=== PATIENT | male | born 1945 | race Caucasian/White ===

== ENCOUNTER 2019-10-20 23:35 | Emergency (ER) | payer MEDICARE, SELFPAY ==
[2019-10-20 23:39] VITALS: BP 214/113; PULSE 83; RESP 18; TEMP 36.1; O2SAT 94; BMI 33.0
--- NOTE | 2019-10-21 00:06 | ECG_ITS ---
Measurements Intervals [place] Rate: 78 P: AL: 0 QRS: -69 QRSD: 101 T: 59 QT: 406 QTc: 465 SSINUS RHYTHM PATTERN CONSISTENT WITH PULMONARY DISEASE LEFT ANTERIOR FASCICULAR BLOCK [QRS AXIS <= -45, QR IN I, RS IN II] INFERIOR MYOCARDIAL INFARCTION , PROBABLY OLD [40+ ms Q WAVE AND/OR ST/T AB ABNORMALITY IN II/aVF] No previous ECG available for comparison Electronically Signed On 10-21-2019 18:24:45 CDT by Nnamdi Claros M.D. [id number]
--- NOTE | 2019-10-21 00:06 | XR_ITS ---
WS: [id number] PORTABLE CHEST HISTORY: Chest pain COMPARISON: None available. Normally aerated lungs. A few scattered granulomata. No pleural effusion or pneumothorax. Cardiac size: Normal. Mediastinum/Aorta: Ectatic aorta with partial calcification. No osseous abnormality seen. XR/XR chest 1V portable [id number] IMPRESSION: 1. Prior granulomatous disease. 2. Partially calcified ectatic thoracic aorta.
--- NOTE | 2019-10-21 00:15 | ED_ITS ---
HPI - Chest Pain General: Chief Complaint: Chest Pain Stated Complaint: HIGH BP Time Seen by Provider: 10/21/19 00:07 Source: patient Mode of arrival: ambulatory Limitations: no limitations History of Present Illness: HPI narrative: 74-year-old male who states he has had chest pain for weeks with it worsening today. He states that he is scheduled for stress test tomorrow I told him to hold his blood pressure medicine his blood pressures increase. He states he always has pain like this when his blood pressure is high. He states his pain is mild in nature and rates it a 2 out of 10. Is been constant. He denies any shortness of breath or nausea or sweating spells. complaint: chest pain Onset (ago): day(s) Onset: during rest Pain location: substernal Pain radiation: none Severity: mild Quality: tightness Relieving factors: nothing Exacerbating factors: nothing Associated symptoms: Deny abdominal pain, dyspnea, fever(s), nausea or vomiting Review of Systems Const: Denies: fever, chills, body aches or change in appetite Eyes: Denies: blurry vision or eye discomfort ENMT: Denies: throat pain or dental pain Card: Reports: chest pain Resp: Denies: shortness of breath GI: Denies: abdominal pain, nausea, vomiting or diarrhea : Denies: painful urination Musc: Denies: neck pain or back pain Skin/Breast: Denies: rash Neuro: Denies: headache Psych: Denies: depression Robert/Lymph: Denies: easy bruising All/Imm: Denies: hives PFSH ED PFSH: Medical History Abnormal cardiovascular stress test [place] coronary artery 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 Aortic valve stenosis Chest tightness Hyperlipidemia Hypertension Thoracic aortic aneurysm (TAA) Surgical History History of shoulder surgery Hx of appendectomy Family History Other CAD (coronary artery disease) Family history of premature coronary artery disease Hyperlipidemia Hypertension Stroke Social History Smoking and tobacco status: former smoker Alcohol intake: never Physical Exam Const: COMMON NORMALS: no apparent distress, oriented x3 and healthy appearing HENMT: COMMON NORMALS: normocephalic and head/scalp atraumatic HEAD & SCALP: normocephalic and atraumatic Eye: COMMON NORMALS: PERRL and EOMs intact bilaterally PUPIL: Yes PERRL Neck/C-Spine: COMMON NORMALS: full ROM and supple Chest: COMMONS NORMALS: inspection of chest normal and palpation of chest normal Resp: COMMON NORMALS: normal respiratory effort, no retractions, no use of accessory muscles and clear to auscultation bilaterally AUSCULTATION: clear to auscultation bilaterally Cardio: COMMON NORMALS: regular rate, regular rhythm and no murmurs RATE: regular rate RHYTHM: regular rhythm GI: COMMON NORMALS: normal to inspection, nondistended, normoactive bowel sounds, soft to palpation, non-tender and no masses PALPATION: Yes soft Extremity: COMMON NORMALS: normal to inspection and full ROM Neuro: COMMON NORMALS: oriented x3, moves all extremities and no focal motor deficits Psych: COMMON NORMALS: mental status grossly normal, thought process normal and cooperative THOUGHT PROCESS: normal thought process Skin: COMMON NORMALS: no rashes or lesions noted and no wounds GENERAL SKIN EXAM: no rashes or lesions noted Course Vital Signs: Vital signs: Vital Signs Temperature 96.9 F L 10/20/19 23:39 Pulse Rate 83 10/20/19 23:39 Respiratory Rate 18 10/20/19 23:39 Blood Pressure 214/113 10/20/19 23:39 Pulse Oximetry 94 10/20/19 23:39 MDM - Chest Pain MDM Narrative: Medical decision making narrative: Patient presents with high blood pressure due to not taking his blood pressure medicines. Patient's chest pain is resolved here and his EKG and initial troponin are normal. He has no signs of acute coronary cause is likely due to his blood pressure. Patient is scheduled for stress test in the morning I feel he is stable for discharge and is to return for his stress test. He has been pain-free here. Lab Data: Labs: Lab Results 10/21/19 10/21/19 10/21/19 Range/Units 00:17 00:17 00:17 WBC 6.8 (4.0-10.0) 10^3/ uL RBC 5.36 H (4.1-5.3) 10^6/u L Hgb 15.5 (11.7-16.6) g/dL Hct 47.5 (42.0-52.0) % MCV 88.6 (80-94) fL MCH 28.9 (28.0-34.0) pg MCHC 32.6 (30.0-36.0) g/dL RDW 13.5 (12.1-15.1) % Plt Count 211 (130-400) 10^3/c mm MPV 11.3 H (7.4-10.4) fL Neut % (Auto) 38.5 % Lymph % (Auto) 48.3 % Sterling % (Auto) 10.5 % Eos % (Auto) 2.2 % Baso % (Auto) 0.4 % Neut # (Auto) 2.6 (1.8-7.7) 10^3/u L Lymph # (Auto) 3.3 (0.8-4.8) 10^3/u L Sterling # (Auto) 0.7 (0.2-0.9) 10^3/u L Eos # (Auto) 0.2 (0.0-0.8) 10^3/u L Baso # (Auto) 0.0 (0.0-0.1) 10^3/u L Nucleated RBC % (a uto) 0 % Nucleated RBCs # 0.0 /100WBC Sodium 141 (136-145) mmol/L Potassium 3.3 L (3.5-5.1) mmol/L Chloride 100 (98-107) mmol/L Carbon Dioxide 27 (22-29) mmol/L Anion Gap 17.3 (5-19) BUN 24 H (8-23) mg/dL Creatinine 1.1 (0.7-1.2) mg/dL Glucose 197 H (65-115) mg/dL Calculated Osmolal ity 294 (285-295) mOsm/k g Calcium 10.1 (8.5-10.5) mg/dL Total Bilirubin 0.3 (0.15-1.2) mg/dL AST 23 (0-40) U/L ALT 36 (0-41) U/L Alkaline Phosphata se 73 (40-130) IU/L Troponin T Baselin e 13 (0-15) ng/mL Total Protein 7.8 (6.6-8.7) g/dL Albumin 4.8 (3.5-5.2) g/dL Globulin 3.0 (1.3-4.6) g/dL Imaging Data^: CXR: Attestation: I personally reviewed and interpreted this imaging study as follows: My impression: no acute abnormality EKG Data^: EKG 1: Attestation: I personally reviewed and interpreted this EKG as follows: EKG interpretation date: 10/21/19 EKG interpretation time: 23:56 Interpretation: nsr hr [address] or t wave abnormalities qrs 101 qtc 440 Discharge Plan Discharge Patient Disposition: Home, Self-Care Clinical Impression: Hypertension Qualifiers: Hypertension type: essential hypertension Qualified Code(s): I10 - Essential (primary) hypertension Chest pain Qualifiers: Chest pain type: other chest pain Qualified Code(s): R07.89 - Other chest pain Condition: Stable Prescriptions: No Action Lantus U-100 Insulin 100 unit/mL solution 100 unit SUBCUT DAILY RF: 0 glipizide [Glucotrol] 5 mg tablet 5 mg PO DAILY RF: 0 insulin aspart U-100 [Novolog Flexpen U-100 Insulin] 100 unit/mL (3 mL) insulin pen 5 unit SUBCUT TID RF: 0 fenofibrate nanocrystallized 145 mg tablet 145 mg PO DAILY RF: 0 rosuvastatin [Crestor] 10 mg tablet 10 mg PO DAILY RF: 0 nifedipine 90 mg tablet extended release 120 mg PO DAILY RF: 0 isosorbide mononitrate 60 mg tablet extended release 24 hr 120 mg PO DAILY RF: 0 aspirin 325 mg tablet 325 mg PO DAILY RF: 0 metoprolol succinate 25 mg tablet extended release 24 hr 25 mg PO DAILY RF: 0 Discharge Orders: Discharge Order (Routine); Ordered 10/21/19 Ordered By: Luis Smalls Referrals: Anitha Jacob DO [Primary Care Provider] - Discharge Diet: Advance as tolerated Discharge Activity: Resume usual activity Patient Instructions: Chest Pain (ED) Discharge Date/Time: 10/21/19 02:00 Coding Level of Care Code ED 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
[2019-10-21] MEDS: hyDRALAzine 20 mg/mL INJ 1 mL 10 MG IVP (00:35)
[2019-10-21 00:39] LABS: Basophils % 0.4 %; Eosinophils # 0.2 10^3/uL (0.0-0.8); Eosinophils % 2.2 %; Hematocrit 47.5 % (42.0-52.0); Hemoglobin 15.5 g/dL (11.7-16.6); Lymphocytes # 3.3 10^3/uL (0.8-4.8); Lymphocytes % 48.3 %; Mean Corpuscular HGB Conc 32.6 g/dL (30.0-36.0); Mean Corpuscular Hemoglobin 28.9 pg (28.0-34.0); Mean Corpuscular Volume 88.6 fL (80-94); Mean Platelet Volume 11.3 fL (7.4-10.4); Monocytes # 0.7 10^3/uL (0.2-0.9); Monocytes % 10.5 %; Neutrophils # 2.6 10^3/uL (1.8-7.7); Neutrophils % 38.5 %; Nucleated Red Blood Cells % 0 %; Platelet Count 211 10^3/cmm (130-400); Red Blood Count 5.36 10^6/uL (4.1-5.3); Red Cell Distribution Width 13.5 % (12.1-15.1); White Blood Count 6.8 10^3/uL (4.0-10.0)
[2019-10-21 01:17] LABS: Troponin(5th) Baseline 13 ng/mL (0-15)
[2019-10-21 01:34] LABS: Alanine Aminotransferase 36 U/L (0-41); Albumin Level 4.8 g/dL (3.5-5.2); Alkaline Phosphatase 73 IU/L (40-130); Anion Gap 17.3 (5-19); Aspartate Amino Transferase 23 U/L (0-40); Blood Urea Nitrogen 24 mg/dL (8-23); Calcium 10.1 mg/dL (8.5-10.5); Carbon Dioxide 27 mmol/L (22-29); Chloride 100 mmol/L (98-107); Glucose 197 mg/dL (65-115); Osmolality Calculated 294 mOsm/kg (285-295); Potassium 3.3 mmol/L (3.5-5.1); Sodium 141 mmol/L (136-145); Total Bilirubin 0.3 mg/dL (0.15-1.2); Total Protein 7.8 g/dL (6.6-8.7)
[2019-10-21 02:02] VITALS: BP 161/99; PULSE 66; RESP 16; O2SAT 95
--- NOTE | 2019-10-21 06:06 | ECG_ITS ---
Measurements Intervals [place] Rate: 78 P: RI: 0 QRS: -69 QRSD: 101 T: 59 QT: 406 QTc: 465 sinus RHYTHM PATTERN CONSISTENT WITH PULMONARY DISEASE LEFT ANTERIOR FASCICULAR BLOCK [QRS AXIS <= -45, QR IN I, RS IN II] INFERIOR MYOCARDIAL INFARCTION , PROBABLY OLD [40+ ms Q WAVE AND/OR ST/T AB ABNORMALITY IN II/aVF] No previous ECG available for comparison Electronically Signed On 10-21-2019 18:26:36 CDT by Nnamdi Claros M.D. [id number] f
== END 2019-10-21 02:00 | disposition home or self-care (01) ==
PROVIDERS: Emergency Provider Emergency Medicine; PCP Family Medicine
DX: I10 Essential (primary) hypertension (principal); R07.89 Other chest pain; E78.5 Hyperlipidemia, unspecified; Z82.49 Family history of ischemic heart disease and other diseases of the circulatory system; Z87.891 Personal history of nicotine dependence
CPT/HCPCS: 12345; 71045; 80053; 84484; 85025; 93005; 96374; 99282; 99283; J0360

== ENCOUNTER 2019-10-21 07:00 | Outpatient (CLI) | payer MEDICARE, SELFPAY ==
[2019-10-21 07:00] VITALS: BMI 33.7
--- NOTE | 2019-10-21 07:23 | ECG_ITS ---
NAME OF STUDY: EXERCISE SESTAMIBI STRESS TEST INDICATION: Chest Pain Baseline blood pressure of 161/85 mmHg, oxygen saturation 96%, heart rate 72 beats per minute. EKG showed normal sinus rhythm, left axis deviation and poor anterior R wave progression. The patient exercised for 5 minutes 31 seconds on a standard Héctor protocol. Patient attained a maximum heart rate of 148 beats per minute(89 % of the maximum predicted heart rate) with a blood pressure at the peak exercise of 197/85 mm Hg and oxygen saturation of 96%. The EKG at the peak exercise revealed sinus tachycardia with no significant ST-T wave changes. Patient did not have any chest pain or any significant arrhythmias with the exercise. During the recovery phase, there were no new changes. Blood pressure at the end of the recovery phase was 165/87 mm Hg with a heart rate of 92 beats per minute and oxygen saturation 98%. CONCLUSION: 1. Normal EKG response to treadmill exercise. 2. No exercise-induced chest pain or cardiac arrhythmia. 3. Good exercise tolerance for age, attained a maximum of 7 METs. 4. Baseline hypertension with normal response to exercise. 5. Maximum VO2 of 24.5 mL/kg/min. 6. Perfusion scan will be documented separately. Electronically Signed On 10-21-2019 20:02:14 CDT by Christie Pena M.D. [email or web address]
--- NOTE | 2019-10-21 07:23 | NMCV_ITS ---
NM anabel perf SPECT r/s* [id number] Alexx Garcia Age: 74 Gender: M : 1945 Exam Date: 10/21/2019 08:26 Ordering Phys: Erick Sanchez MD ([email or web address]) Technologist: SUZE Zelaya Exam Location: [facility] Indications: CHEST PAIN STRESS TEST [facility] IMAGE PROTOCOL Rest/Stress 1 Exercise Day Radiopharmaceutical Dose (mCi) Administration Site Administered by Rest: Tc-99m 10.7 IV SUZE Barnes Sestamibi Stress:Tc-99m 32.6 IV SUZE Zelaya Sestamisimran Rest: 21-Oct-2019 60 Discovery 630 Stress: 21-Oct-2019 15 Discovery 630 Radiopharmaceutical was injected at 85 % maximum heart rate. Images obtained in supine and prone position. SPECT RESULTS Technical Quality: Good Raw Data Analysis: Normal Image Corrections: No attenuation or motion correction applied Summed Stress Score: 0 Summed Rest Score: 1 Summed Difference Score: 0 PERFUSION FINDINGS Myocardial perfusion imaging reveals a small area of decreased tracer uptake in the inferolateral region, only with the supine imaging. NO reversibility. FUNCTIONAL RESULTS (calculated via Gated SPECT) Stress Image LV EF (%): 74 Stress EDV (mL):91 TID: 0.78 Stress ESV (mL):24 FUNCTIONAL FINDINGS: There is normal left ventricular systolic function. IMPRESSIONS 1. Unremarkable myocardial perfusion imaging. 2. Normal left ventricular systolic function. 3. Normal LV volume [id number] LVEF of 74 %. No similar previous studies are available for comparison. Dr Erick Sanchez MD FACC (Electronically Signed) Final Date: 21 October 2019 14:57 S
--- NOTE | 2019-10-21 09:27 | SUR.PREOP ---
Patient reports no pain or discomfort prior to the start of the procedure.
[2019-10-21 09:34] VITALS: BP 197/75; PULSE 91
== END 2019-10-21 07:01 | disposition home or self-care (01) ==
PROVIDERS: PCP Family Medicine; Visit Provider Internal Medicine Cardiovascular Disease
DX: R07.89 Other chest pain (principal); R06.02 Shortness of breath
CPT/HCPCS: 78452; 93017; A9500

== ENCOUNTER 2019-11-03 14:44 | Outpatient (CLI) | payer MEDICARE, SELFPAY ==
--- NOTE | 2019-11-03 15:00 | USCV_ITS ---
Mattmichele Alexx Age: 74 Gender: M : 1945 Exam Date: 11/03/2019 14:58 Ordering Phys: Erick Sanchez MD ([email or web address]) Technologist: Eve Davis Exam Location: [facility] [place] Indication: NON-RHEUMATIC AORTIC STENOSIS BP: 121 / 54 HR: 69 Rhythm: Sinus Technical Quality: Adequate MEASUREMENTS (Male / Female) Normal Values 2D ECHO LV Diastolic Diameter PLAX 4.3 cm 4.2 - 5.9 / 3.9 - 5.3 cm LV Systolic Diameter PLAX 2.5 cm IVS Diastolic Thickness 1.2 cm 0.6 - 1.0 / 0.6 - 0.9 cm IVS Systolic Thickness 1.6 cm LVPW Diastolic Thickness 1.1 cm 0.6 - 1.0 / 0.6 - 0.9 cm LVPW Systolic Thickness 1.7 cm LVOT Diameter 2.1 cm LV Ejection Fraction 2D Teich 74.2 % LV Ejection Fraction MOD 2C 81.0 % LV Ejection Fraction 2C AL 81.5 % LA Diameter 3.9 cm LA Width 3.9 cm LA Height 5.7 cm RA Width 3.4 cm RA Height 5.9 cm Aorta at Sinotubular Diameter 3.5 cm M-MODE LV Diastolic Diameter MM 4.8 cm 4.2 - 5.9 / 3.9 - 5.3 cm LV Systolic Diameter MM 2.5 cm LV Ejection Fraction MM Teich 79.5 % IVS Diastolic Thickness MM 1.2 cm 0.6 - 1.0 / 0.6 - 0.9 cm IVS Systolic Thickness MM 1.6 cm LVPW Diastolic Thickness MM 1.1 cm 0.6 - 1.0 / 0.6 - 0.9 cm LVPW Systolic Thickness MM 1.6 cm Aortic Annulus Diameter 3.3 cm LA Ao Ratio MM 1.2 MV E Point Septal Separation 0.2 cm DOPPLER AV Peak Velocity 203.0 cm/s LVOT Peak Velocity 93.0 cm/s AV Area Cont Eq vti 1.7 cm squared AV Area Cont Eq pk 1.5 cm squared MV Area PHT 2.7 cm squared Mitral E to A Ratio 1.1 MV E' Velocity 8.0 cm/s Mitral E to MV E' Ratio 18.9 Mitral E to LV E' Lateral Ratio 18.9 Mitral E to LV E' Septal Ratio 19.2 TR Peak Velocity 299.9 cm/s TR Peak Gradient 36.0 mmHg TR Mean Velocity 226.9 cm/s TR Mean Gradient 21.8 mmHg TR Velocity Time Integral 93.6 cm TV Peak E Velocity 91.0 cm/s PV Peak Velocity 108.0 cm/s RV Acceleration Time 0.1 s RV Ejection Time 0.3 s RV AcT/ET 0.4 FINDINGS Left Ventricle Normal left ventricular size and systolic function, EF 83 %. Mild left ventricular hypertrophy. No regional wall motion abnormalities. Grade II/IV diastolic dysfunction, moderately elevated filling pressures. Right Ventricle The right ventricle is normal in size and function. Right Atrium The right atrium is normal in size. Left Atrium Mildly dilated left atrium Mitral Valve Thickened mitral valve. Mild mitral annular calcification. Trace mitral valve regurgitation. Aortic Valve Thickened aortic valve. Trace to mild aortic valve regurgitation. Tricuspid Valve Mild tricuspid valve regurgitation. Pulmonic Valve Structurally normal pulmonic valve without significant stenosis. There is no pulmonic regurgitation. Estimated pulmonary artery peak systolic pressure is 41 mmHg Pericardium Normal pericardium without effusion. Aorta Normal ascending aorta dimension. CONCLUSIONS Normal left ventricular size and systolic function, EF 83 %. Mild left ventricular hypertrophy. No regional wall motion abnormalities. Grade II/IV diastolic dysfunction, moderately elevated filling pressures. Mildly dilated left atrium Thickened mitral valve. Mild mitral annular calcification. Trace mitral valve regurgitation. Thickened aortic valve. Trace to mild aortic valve regurgitation. Mild tricuspid valve regurgitation. Mild pulmonary hypertension with an estimated pulmonary artery peak systolic pressure of 41 mmHg There is no pericardial effusion. There are no intracardiac masses. There are no prior echocardiogram studies to compare. Dr Erick Sanchez MD FACC (Electronically Signed) Final Date: 04 Nov 2019 11:57 S
== END 2019-11-03 14:45 | disposition home or self-care (01) ==
LOC: RAD 14:50
PROVIDERS: PCP Family Medicine; Visit Provider Internal Medicine Cardiovascular Disease
DX: I08.0 Rheumatic disorders of both mitral and aortic valves (principal); I27.20 Pulmonary hypertension, unspecified
CPT/HCPCS: 93306

== ENCOUNTER 2019-11-04 07:39 | Outpatient (CLI) | payer MEDICARE, SELFPAY ==
--- NOTE | 2019-11-04 07:58 | FL_ITS ---
WS: [id number] BARIUM SWALLOW WITH FLUOROSCOPY HISTORY: SOLITARY PULMONARY NODULE COMPARISON: None available. FLUOROSCOPY TIME: 1.8 minutes. Patient swallowed the barium mixture without difficulty. Persistent pharyngeal coating of the esophag us with barium. Several times during the examination laryngeal penetration and a few episodes of aspi ration were noted without spontaneous cough. There is a moderate stricture involving the distal esophagus. The 14 mm barium tablet did not readily proceed through this stricture. Mild esophageal dysmotility. No stricture otherwise. FL/FL barium swallow 2cont* [id number] IMPRESSION: 1. Pharyngeal coating with laryngeal aspiration and penetration. Recommend mod ified barium swallowing examination for further details. 2. Moderate stricture distal esophagus. No delay in transit of the barium tabl et. In the upper endoscopy may be necessary for esophageal dilatation.
--- NOTE | 2019-11-04 10:00 | CT_ITS ---
WS: [id number] CT CHEST WITHOUT INTRAVENOUS CONTRAST HISTORY: Pulmonary nodule TECHNIQUE: Contiguous 5 mm axial imaging performed on the thorax. Coronal and sagittal reformats are submitted. All CT scans at [facility] use at least one of these dose optimization techniq ues: automated exposure control; mA and/or kV adjustment per patient size (includes targeted exams wh ere dose is matched to clinical indication); or iterative reconstruction. CONTRAST: None DLP: 962.14 mGy.cm COMPARISON: 10/21/2019. Lungs and central airway: Subpleural nodule measuring 4.7 mm RIGHT lower lobe, image 38 of series 3. Otherwise lungs are clear. Benign appearing nodules along the LEFT major fissure. Pleura: Normal. No pleural effusion. Heart and pericardium: Heart is slightly enlarged. Mild atherosclerosis coronary arteries. Mediastinum and hilario: Small mediastinal and hilar lymph nodes. Vessels: Mild atherosclerosis of aorta. No aneurysm. Pulmonary artery size is normal. Chest wall and lower neck: No soft tissue masses. Upper abdomen: Slightly contracted gallbladder. Mild hepatic steatosis. Small hiatal hernia. No adren al mass. Incompletely visualized 3.5 cm cystic mass in the RIGHT kidney. Probably a benign cyst. Osseous structures: No destructive process. CT/CT chest wo con [id number] IMPRESSION: 1. Subpleural RIGHT lower lobe pulmonary nodule measures 4.7 mm. Recommend fol low-up chest CT in 12 months. 2. No adenopathy. 3. Mild hepatic steatosis. 4. Mild cardiomegaly. 5. Mild atherosclerosis thoracic aorta and coronary arteries.
== END 2019-11-04 07:40 | disposition home or self-care (01) ==
LOC: RAD 07:43
PROVIDERS: PCP Family Medicine; Visit Provider Internal Medicine Critical Care Medicine
DX: R91.1 Solitary pulmonary nodule (principal); K76.0 Fatty (change of) liver, not elsewhere classified; I51.7 Cardiomegaly; I70.0 Atherosclerosis of aorta; I25.10 Atherosclerotic heart disease of native coronary artery without angina pectoris
CPT/HCPCS: 71250; 74221

== ENCOUNTER 2020-01-02 13:59 | Outpatient (CLI) | payer MEDICARE, SELFPAY ==
--- NOTE | 2020-01-02 14:00 | CT_ITS ---
WS: [id number] CTA THORACIC AORTA WITH AND WITHOUT CONTRAST. HISTORY: Ascending aortic aneurysm TECHNIQUE: CT imaging of the thorax is performed with and without contrast. After noncontrast imaging is performed, CT angiogram is performed during injection of Visipaque 320; 95 mL IV.. Sagittal and c oronal reconstructions, sagittal and coronal MIP imaging is submitted. All CT scans at [facility] use at least one of these dose optimization techniques: automated exposure control; mA and/o r kV adjustment per patient size (includes targeted exams where dose is matched to clinical indicatio n); or iterative reconstruction. DLP: 1351.52 mGycm COMPARISON: 11/04/2019 Mild ectasia and dilatation of the ascending thoracic aorta with a maximum diameter 4.3 cm. Descendin g aorta is normal size also measuring 3.1 cm. Great vessels normally arises from the aorta. No dissec tion or significant ulcerated plaque. Normal sized pulmonary arteries. Origin of the coronary arteries is normal. No adenopathy. Heart size is normal to slightly enlarged. No pericardial or pleural effusions. No pulmonary nodules or pneumonia. No hiatal hernia. Incompletely visualized cyst from the RIGHT kidn ey measures 3.5 cm. Mild nodularity RIGHT adrenal gland. CT/CT angio chest [id number] IMPRESSION: 1. Mild ectasia but no significant aneurysmal dilatation ascending thoracic ao rta. Maximum diameter 4.3 cm. Diameter of ascending aorta was also normal on ec hocardiogram performed 11/03/2019. 2. Mild atherosclerosis aorta. 3. No pneumonia.
[2020-01-02 14:39] LABS: Blood Urea Nitrogen 17 mg/dL (8-23)
[2020-01-02] MEDS: iodixanol 320 mg/mL 100mL Btl IV (14:52)
== END 2020-01-02 14:00 | disposition home or self-care (01) ==
LOC: RADWPI 14:05
PROVIDERS: Family Provider Family Medicine; PCP Family Medicine; Visit Provider Internal Medicine Cardiovascular Disease
DX: I71.2 Thoracic aortic aneurysm, without rupture (principal)
CPT/HCPCS: 71275; 82565; 84520; Q9967

== ENCOUNTER 2020-02-13 11:21 | Outpatient (CLI) | payer MEDICARE, SELFPAY ==
--- NOTE | 2020-02-13 11:31 | USCV_ITS ---
Alexx Garcia Age: 74 Gender: M : 1945 Exam Date: 02/13/2020 11:26 Ordering Phys: Erick Sanchez MD ([email or web address]) Technologist: Danitza Cedillo [place] [facility] [place]: UNCONTROLLED BLOOD PRESSURE Aortic Velocity @ SMA (cm/s) 62 RIGHT KIDNEY LEFT KIDNEY Velocity (cm/s) Velocity (cm/s) Sys/Lorenzo Sys/Lorenzo Resistive Index Resistive Index 73.1 / 20.5 0.72 Proximal Renal Artery 75.0 / 13.5 0.82 56.0 / 15.0 0.73 Mid Renal Artery 55.8 / 17.3 0.69 28.7 / 12.3 0.57 Distal Renal Artery 42.3 / 14.1 0.67 28.0 / 10.2 0.63 Hilar 35.2 / 10.9 0.69 16.3 / 8.6 0.47 Upper Pole 18.7 / 9.7 0.48 17.2 / 8.1 0.53 Mid Pole 16.7 / 8.3 0.50 13.9 / 7.3 0.48 Lower Pole 16.3 / 8.3 0.49 1.20 Renal Aortic Ratio 1.21 Accleration Index (cm/sec2) 305.00 Hilar 539.00 368.00 Upper Pole 198.00 175.00 Mid Pole 348.00 213.00 Lower Pole 259.00 147.3 Kidney Length (mm) 131.9 FINDINGS Normal kidney dimensions bilaterally Normal Doppler flow velocities Normal velocity ratios Normal resistive indicis Cyst in the upper pole of the right kidney measuring 6 x 5 cm CONCLUSIONS #1. Normal kidney dimensions bilaterally #2. No significant arterial obstruction, based on the above findings #3. Cyst in the right kidney measuring 6.[address] Erick Sanchez MD [facility] (Electronically Signed) Final Date: 13 February 2020 20:01 S
== END 2020-02-13 11:22 | disposition home or self-care (01) ==
LOC: RAD 11:25
PROVIDERS: Family Provider Family Medicine; PCP Family Medicine; Visit Provider Internal Medicine Cardiovascular Disease
DX: I10 Essential (primary) hypertension (principal); N28.1 Cyst of kidney, acquired
CPT/HCPCS: 93975

== ENCOUNTER 2020-07-18 09:54 | Outpatient (CLI) | payer MEDICARE, SELFPAY ==
[2020-07-18 10:55] LABS: Blood Urea Nitrogen 18 mg/dL (8-23)
--- NOTE | 2020-07-18 11:00 | CT_ITS ---
WS: [id number] CTA THORACIC TECHNIQUE: Contrast enhanced CTA of the thoracic aorta with coronal and sagittal reformatted images a nd maximum intensity projection (MIP) images. CLINICAL INFORMATION: TAA COMPARISON: CT January 02, 2020 DLP: 2006.[address] scans at [facility] use at least one of these dose optimization techniques: automat ed exposure control; mA and/or kV adjustment per patient size (includes targeted exams where dose is matched to clinical indication); or iterative reconstruction. FINDINGS: Again seen is mild ectasia of the ascending thoracic aorta with maximum measuring 4.1 cm. This is unc hanged from the prior examination. Normal caliber descending thoracic aorta and abdominal aorta. Mild aortic calcification. Proximal main pulmonary arteries are normal. No evidence of pulmonary embolus. No mediastinal or hilario r lymphadenopathy. No axillary lymphadenopathy. Mild chronic emphysematous changes. No acute pulmonary infiltrates. No consolidation or pleural fluid . Normal left adrenal gland. Small right adrenal adenoma measuring 16 mm. Right renal cyst measuring 3. 9 CM. A few noncalcified pulmonary nodules measuring 4-[address]/CT angio chest [id number] IMPRESSION: 1. Ectatic ascending thoracic aorta is unchanged measuring 4.1 cm in maximum d imension. 2. Descending thoracic aorta and upper abdominal aorta are normal. 3. No evidence of pulmonary embolus. 4. Moderate chronic emphysematous changes. No acute pulmonary infiltrates. 5. Two 4- 5 mm noncalcified pulmonary nodules are unchanged. 6. No mediastinal or hilar lymphadenopathy. 7. Stable 15 mm adrenal adenoma.
[2020-07-18] MEDS: iohexol 350 mg/mL 100 mL Btl IV (11:28)
== END 2020-07-18 09:55 | disposition home or self-care (01) ==
LOC: CT 09:54
PROVIDERS: PCP Family Medicine; Visit Provider Internal Medicine Cardiovascular Disease
DX: I71.2 Thoracic aortic aneurysm, without rupture (principal); D35.00 Benign neoplasm of unspecified adrenal gland; R91.8 Other nonspecific abnormal finding of lung field
CPT/HCPCS: 36415; 71275; 82565; 84520

== ENCOUNTER 2020-12-18 09:41 | Outpatient (CLI) | payer MEDICARE, SELFPAY ==
--- NOTE | 2020-12-18 10:00 | CT_ITS ---
WS: [id number] CT CHEST WITHOUT INTRAVENOUS CONTRAST HISTORY: Pulmonary nodule TECHNIQUE: Contiguous 5 mm axial imaging performed on the thorax. Coronal and sagittal reformats are submitted. All CT scans at [facility] use at least one of these dose optimization techniq ues: automated exposure control; mA and/or kV adjustment per patient size (includes targeted exams wh ere dose is matched to clinical indication); or iterative reconstruction. CONTRAST: None DLP: 964.66 mGycm COMPARISON: 07/18/2020 and 01/02/2020 Lungs and central airway: No change in the bilateral 4 mm lower lobe pulmonary nodules. These nodules are stable since at least 01/02/2020. No new or enlarging nodules. Pleura: Normal. No pleural effusion. Heart and pericardium: Mildly enlarged heart. No pericardial effusion. Moderate coronary artery ather osclerosis. Mediastinum and hilario: Small, benign appearing mediastinal and hilar lymph nodes. No enlarging or new lymph nodes. Vessels: Ectatic thoracic aorta. Maximum diameter 4.2 cm of the ascending aorta. Normal caliber desce nding aorta with gas scattered calcified plaque. Normal size pulmonary artery. Chest wall and lower neck: No soft tissue masses. Upper abdomen: No hiatal hernia. No change in the 15 mm RIGHT adrenal nodule. Partially visualized cy st associated with the RIGHT kidney. Maximum diameter 3.4 cm. Osseous structures: No destructive bone lesions. CT/CT chest wo con [id number] IMPRESSION: 1. No change in the size of a 4 mm bilateral lower lobe pulmonary nodules. To document long-term stability recommend follow-up chest CT in 12 months. 2. No adenopathy. 3. Small stable RIGHT adrenal nodule. 4. Mild ectasia and atherosclerosis thoracic aorta with no increase in size or aneurysm.
== END 2020-12-18 09:42 | disposition home or self-care (01) ==
LOC: RADWPI 09:46
PROVIDERS: PCP Family Medicine; Visit Provider Internal Medicine Critical Care Medicine
DX: R91.1 Solitary pulmonary nodule (principal); D49.7 Neoplasm of unspecified behavior of endocrine glands and other parts of nervous system; I77.819 Aortic ectasia, unspecified site; I70.0 Atherosclerosis of aorta
CPT/HCPCS: 71250

== ENCOUNTER 2021-01-18 13:53 | Outpatient (CLI) | payer MEDICARE, SELFPAY ==
--- NOTE | 2021-01-18 14:11 | CTR_ITS ---
PROCEDURE INFORMATION: Exam: CT Angiography Head Without And With Contrast, Arteriography Exam date and time: 01/18/2021 2:11 PM Age: 75 years old Clinical indication: Pain; Headache; Patient HX: HX of melanoma; Additional info: Intractible acute post-traumatic headache, sharp and painful headaches TECHNIQUE: Imaging protocol: Computed tomographic angiography of the head without and with contrast. Exam focused on the arteries. 3D rendering (Not supervised by radiologist): MIP and/or 3D reconstructed images were created by the technologist. Radiation optimization: All CT scans at this facility use at least one of these dose optimization techniques: automated exposure control; mA and/or kV adjustment per patient size (includes targeted exams where dose is matched to clinical indication); or iterative reconstruction. Contrast material: OMNI 350; Contrast volume: 95 ml; Contrast route: INTRAVENOUS (IV); COMPARISON: CT neck w con* [id number] 08/15/2016 10:58 AM RADIATION DOSE METRICS: Total DLP (mGy-cm): 2147.31 FINDINGS: ANTERIOR CIRCULATION: Right internal carotid artery: Intracranial segment is patent with no significant stenosis or occlusion. No aneurysm. Right middle cerebral artery: No occlusion or significant stenosis. No aneurysm. Right anterior cerebral artery: No occlusion or significant stenosis. No aneurysm. Left internal carotid artery: Calcified plaque causes mild stenosis of the left supraclinoid ICA. No aneurysm. Left middle cerebral artery: No occlusion or significant stenosis. No aneurysm. Left anterior cerebral artery: No occlusion or significant stenosis. No aneurysm. POSTERIOR CIRCULATION: Right vertebral artery: No occlusion or significant stenosis. No aneurysm. Left vertebral artery: No occlusion or significant stenosis. No aneurysm. Basilar artery: No occlusion or significant stenosis. No aneurysm. Right posterior cerebral artery: No occlusion or significant stenosis. No aneurysm. Left posterior cerebral artery: No occlusion or significant stenosis. No aneurysm. HEAD: Brain: Mild brain atrophy is noted. No hemorrhage or evidence of acute infarction is seen. Cerebral ventricles: Normal. No ventriculomegaly. Bones/joints: Unremarkable. No acute fracture. Paranasal sinuses: Right maxillary sinusitis is noted. Mastoid air cells: Mild left mastoiditis is appreciated, which appears chronic. Soft tissues: Unremarkable. IMPRESSION: 1. Mild stenosis of the left supraclinoid ICA. Otherwise, the intracranial arteries are patent. 2. No acute intracranial abnormality is seen. 3. Right maxillary sinusitis. 4. Mild chronic left mastoiditis. PROCEDURE INFORMATION: Exam: CT Angiography Neck With Contrast Exam date and time: 01/18/2021 2:11 PM Age: 75 years old Clinical indication: Pain; Headache; Patient HX: HX of melanoma; Additional info: Intractible acute post-traumatic headache, sharp and painful headaches TECHNIQUE: Imaging protocol: Computed tomography angiography of the neck with contrast. 3D rendering (Not supervised by radiologist): MIP and/or 3D reconstructed images were created by the technologist. Radiation optimization: All CT scans at this facility use at least one of these dose optimization techniques: automated exposure control; mA and/or kV adjustment per patient size (includes targeted exams where dose is matched to clinical indication); or iterative reconstruction. Contrast material: OMNI 350; Contrast volume: 95 ml; Contrast route: INTRAVENOUS (IV); COMPARISON: CT neck w con* [id number] 08/15/2016 10:58 AM RADIATION DOSE METRICS: Total DLP (mGy-cm): 2147.31 FINDINGS: Right common carotid artery: No stenosis. No dissection or occlusion. Right internal carotid artery: No stenosis of the extracranial segment. No dissection or occlusion. Right external carotid artery: No occlusion or stenosis of the origin. Left common carotid artery: No stenosis. No dissection or occlusion. Left internal carotid artery: No stenosis of the extracranial segment. No dissection or occlusion. Left external carotid artery: No occlusion or stenosis of the origin. Right vertebral artery: No stenosis. No dissection or occlusion. Left vertebral artery: No stenosis. No dissection or occlusion. Soft tissues: Normal. No significant soft tissue swelling. Bones/joints: Mild degenerative changes are observed in the cervical spine. No cervical spine fracture is visualized. Spinal alignment is normal. CT/CT angio headneck* [id number] IMPRESSION: Patent neck carotid and vertebral arteries. REFERENCES: NASCET CRITERIA. The degree of internal carotid artery stenosis is based on NASCET criteria. Normal is no stenosis. Mild is less than 50% stenosis. Moderate is 50-69% stenosis. Severe is 70% to 99% stenosis. Total occlusion is no detectable patent lumen. Radiation Dose CTDIVOL = (mGy): DLP = 2147.31~2147.31 (mGy-cm)
[2021-01-18 14:57] LABS: Blood Urea Nitrogen 20 mg/dL (8-23)
[2021-01-18] MEDS: iohexol 350 mg/mL 100 mL Btl IV (15:21)
== END 2021-01-18 13:54 | disposition home or self-care (01) ==
PROVIDERS: PCP Family Medicine; Visit Provider Family Medicine
DX: G44.311 Acute post-traumatic headache, intractable (principal); I65.22 Occlusion and stenosis of left carotid artery
CPT/HCPCS: 70496; 70498; 82565; 84520; Q9967

== ENCOUNTER → 2022-06-12 12:54 | Outpatient (BNVA) | payer MEDICARE, SELFPAY | PROVIDERS: PCP Family Medicine; Visit Provider Internal Medicine Cardiovascular Disease | DX: I12.9 Hypertensive chronic kidney disease with stage 1 through stage 4 chronic kidney disease, or unspecified chronic kidney disease (principal); N18.30 Chronic kidney disease, stage 3 unspecified; I06.0 Rheumatic aortic stenosis; R93.1 Abnormal findings on diagnostic imaging of heart and coronary circulation; E78.2 Mixed hyperlipidemia; I71.20 Thoracic aortic aneurysm, without rupture, unspecified; Z87.891 Personal history of nicotine dependence | CPT/HCPCS: 99213 ==

== ENCOUNTER 2022-06-20 15:28 | Outpatient (CLI) | payer MEDICARE, SELFPAY ==
--- NOTE | 2022-06-20 | CT_ITS ---
WS: [id number] CTA THORACIC AORTA WITH AND WITHOUT CONTRAST. HISTORY: ANEURYSM TECHNIQUE: CT imaging of the thorax is performed with and without contrast. After noncontrast imaging is performed, CT angiogram is performed during injection of Omnipaque 350; 95 mL IV.. Sagittal and c oronal reconstructions, sagittal and coronal MIP imaging is submitted. All CT scans at [facility] use at least one of these dose optimization techniques: automated exposure control; mA and/or kV adjustment per patient size (includes targeted exams where dose is matched to clinical indication); or iterative reconstruction. DLP: 1236.76 mGy.cm COMPARISON: 12/18/2020, 07/18/2020, 01/02/2020 Mildly ectatic atherosclerotic thoracic aorta. Mild dilatation and ectasia. Maximum diameter of 4.4 c m has slightly increased by 2 mm since 12/18/2020. Through the aortic arch the aorta returns to normal caliber. Descending aorta is normal size with mild scattered calcified plaque and intimal thickening . No aneurysms or ulcerations. Normal size pulmonary artery. No filling defects. Heart is normal size . No pericardial or pleural effusion. No mediastinal or hilar adenopathy. 4 mm bilateral lower lobe pulmonary nodules are unchanged. No change for greater than 2 years. RIGHT renal cyst incompletely visualized measures 4.0 x 4.2 cm. No adrenal mass. No destructive bone lesions. CT/CT angio chest [id number] IMPRESSION: 1. Ectatic minimally aneurysmal ascending thoracic aorta to 4.4 cm. Increase i n size by 2 mm since 12/18/2020. 2. Long-term stability bilateral 4 mm lower lobe pulmonary nodules.
[2022-06-20] MEDS: iohexol 350 mg/mL 500 mL Btl (per mL) IV (16:08)
[2022-06-20 16:15] LABS: Blood Urea Nitrogen 23 mg/dL (8-23)
== END 2022-06-20 15:29 | disposition home or self-care (01) ==
LOC: RAD 15:30
PROVIDERS: PCP Family Medicine; Visit Provider Internal Medicine Cardiovascular Disease
DX: I71.20 Thoracic aortic aneurysm, without rupture, unspecified (principal)
CPT/HCPCS: 71275; 82565; 84520; Q9967

== ENCOUNTER → 2022-08-07 15:18 | Outpatient (BNVA) | payer MEDICARE, SELFPAY | PROVIDERS: PCP Family Medicine; Visit Provider Internal Medicine Pulmonary Disease | DX: R06.02 Shortness of breath (principal); R91.1 Solitary pulmonary nodule; K22.2 Esophageal obstruction; T17.908A Unspecified foreign body in respiratory tract, part unspecified causing other injury, initial encounter; R42 Dizziness and giddiness; R55 Syncope and collapse; R05.4 Cough syncope; Z87.891 Personal history of nicotine dependence; I50.30 Unspecified diastolic (congestive) heart failure; I27.20 Pulmonary hypertension, unspecified; X58.XXXA Exposure to other specified factors, initial encounter | CPT/HCPCS: 99214 ==

== ENCOUNTER 2022-09-11 14:49 | Outpatient (CLI) | payer MEDICARE, SELFPAY ==
--- NOTE | 2022-09-11 15:15 | USCV_ITS ---
Alexx Garcia Age: 77 Gender: M : 1945 Exam Date: 09/11/2022 15:01 Ordering Phys: Vu Delgado MD Technologist: Yumiko Valenzuela Exam Location: [facility] [place] Indication: dizziness Risk Factors: Unknown Previous Vascular Surgery: Unknown Right Brachial BP: / Left Brachial BP: / Right Left Velocity (cm/s) Spectral Plaque Velocity (cm/s) Spectral Plaque Syst/Diast Broadening Syst/Diast Broadening 68.40/ 13.20 Prox CCA 80.20 / 27.60 65.10/ 17.60 Mid CCA 80.20 / 19.10 65.10/ 12.10 Distal CCA 73.00 / 16.40 36.80/ 11.20 Prox ICA 65.50 / 21.10 40.60/ 14.40 Mid ICA 67.00 / 22.60 73.00/ 18.40 Distal ICA 70.90 / 15.60 84.90 ECA 49.30 1.12 ICA/CCA 0.88 Antegrade Vertebral Antegrade 33.50/ 11.80 cm/s 49.90/ 14.80 cm/s Tri Subclavian Tri 55.90 82.60 FINDINGS Comparison: none available. No significant elevation of systolic or diastolic velocities. Waveforms are normal. Minimal bilateral, intimal thickening with no elevation of velocity. CONCLUSIONS Bilateral ICA stenosis less than 50%. Minimal carotid atherosclerosis. Dr. Celeste Bedoya DO (Electronically Signed) Final Date: 11 September 2022 16:41 S
== END 2022-09-11 14:50 | disposition home or self-care (01) ==
PROVIDERS: PCP Family Medicine; Visit Provider Internal Medicine Pulmonary Disease
DX: R42 Dizziness and giddiness (principal); I65.23 Occlusion and stenosis of bilateral carotid arteries
CPT/HCPCS: 93880

== ENCOUNTER 2022-09-12 14:07 | Outpatient (CLI) | payer MEDICARE, SELFPAY ==
--- NOTE | 2022-09-12 14:30 | USCV_ITS ---
Mattmichele Alexx Age: 77 Gender: M : 1945 Exam Date: 09/12/2022 14:31 Ordering Phys: Vu Delgado MD Technologist: Yumiko Valenzuela Exam Location: [facility] [place] Indication: Dizzilness BP: 130 / 80 HR: 65 Rhythm: Sinus Technical Quality: Adequate MEASUREMENTS (Male / Female) Normal Values 2D ECHO LV Diastolic Diameter PLAX 3.9 cm 4.2 - 5.9 / 3.9 - 5.3 cm LV Systolic Diameter PLAX 2.3 cm LV Chamber Size 3.2 cm IVS Diastolic Thickness 1.4 cm 0.6 - 1.0 / 0.6 - 0.9 cm IVS Systolic Thickness 1.6 cm LVPW Diastolic Thickness 1.3 cm 0.6 - 1.0 / 0.6 - 0.9 cm LVPW Systolic Thickness 1.6 cm RV Chamber Size 3.9 cm LVOT Diameter 2.1 cm LV Ejection Fraction 2D Teich 73.3 % LV Ejection Fraction MOD 2C 74.1 % LV Ejection Fraction 2C AL 73.1 % LA Diameter 4.2 cm LA Width 2.9 cm LA Height 3.5 cm RA Width 3.4 cm RA Height 4.0 cm Aorta at Sinotubular Diameter 4.2 cm IVC Diameter 1.6 cm M-MODE Aortic Annulus Diameter 4.0 cm LA Ao Ratio MM 1.2 MV E Point Septal Separation 0.4 cm DOPPLER AV Peak Velocity 168.0 cm/s LVOT Peak Velocity 126.0 cm/s AV Area Cont Eq vti 3.3 cm squared AV Area Cont Eq pk 2.5 cm squared MV Area PHT 5.5 cm squared Mitral E to A Ratio 1.1 MV E' Velocity 63.0 cm/s Mitral E to MV E' Ratio 15.0 Mitral E to LV E' Lateral Ratio 15.6 Mitral E to LV E' Septal Ratio 14.6 TR Peak Velocity 198.5 cm/s TR Peak Gradient 15.8 mmHg TR Mean Velocity 143.4 cm/s TR Mean Gradient 9.2 mmHg TR Velocity Time Integral 54.0 cm TV Peak E Velocity 80.0 cm/s Right Atrial Pressure 3.0 mmHg Pulmonary Artery Systolic Pressu 18.8 mmHg PV Peak Velocity 74.0 cm/s RV Acceleration Time 0.2 s RV Ejection Time 0.4 s RV AcT/ET 0.4 FINDINGS Left Ventricle Normal left ventricular size and systolic function, EF 70 %. No regional wall motion abnormalities. Mild left ventricular hypertrophy. Grade II/IV diastolic dysfunction, moderately elevated filling pressures. Right Ventricle The right ventricle is normal in size and function. Right Atrium The right atrium is normal in size. Left Atrium Mildly dilated left atrium Mitral Valve No gross abnormalities noted Aortic Valve Thickened aortic valve. Tricuspid Valve Trace tricuspid valve regurgitation. Pulmonic Valve Pulmonic valve not well visualized. Pericardium Normal pericardium without effusion. Aorta Normal ascending aorta dimension. IVC The inferior vena cava appears normal. CONCLUSIONS Normal left ventricular size and systolic function, EF 70 %. No regional wall motion abnormalities. Mild left ventricular hypertrophy. Grade II/IV diastolic dysfunction, moderately elevated filling pressures. Features of aortic valve sclerosis Mildly dilated left atrium. Trace tricuspid valve regurgitation. Pulmonary artery peak systolic pressure could not be calculated because of the poor Doppler signals There is no pericardial effusion. There are no intracardiac masses. Technically somewhat difficult study. There may not be a significant change from the previous study on 11/03/2019 Dr Erick Sanchez MD [facility] (Electronically Signed) Final Date: 16 September 2022 09:57 S
== END 2022-09-12 14:08 | disposition home or self-care (01) ==
PROVIDERS: PCP Family Medicine; Visit Provider Internal Medicine Pulmonary Disease
DX: R42 Dizziness and giddiness (principal); I07.1 Rheumatic tricuspid insufficiency
CPT/HCPCS: 93306

== ENCOUNTER → 2022-10-09 10:49 | Outpatient (BNVA) | payer MEDICARE, SELFPAY | PROVIDERS: PCP Family Medicine; Visit Provider Internal Medicine Pulmonary Disease | DX: R91.1 Solitary pulmonary nodule (principal); R42 Dizziness and giddiness; R05.9 Cough, unspecified; R07.89 Other chest pain; R06.02 Shortness of breath; T17.908A Unspecified foreign body in respiratory tract, part unspecified causing other injury, initial encounter; K22.2 Esophageal obstruction; X58.XXXA Exposure to other specified factors, initial encounter; Z87.891 Personal history of nicotine dependence | CPT/HCPCS: 36415; 82785; 86003; 99214 ==

== ENCOUNTER → 2022-12-18 10:43 | Outpatient (BNVA) | payer MEDICARE, SELFPAY | PROVIDERS: PCP Family Medicine; Visit Provider Internal Medicine Cardiovascular Disease | DX: I12.9 Hypertensive chronic kidney disease with stage 1 through stage 4 chronic kidney disease, or unspecified chronic kidney disease (principal); N18.30 Chronic kidney disease, stage 3 unspecified; I06.0 Rheumatic aortic stenosis; R93.1 Abnormal findings on diagnostic imaging of heart and coronary circulation; E78.2 Mixed hyperlipidemia; I71.20 Thoracic aortic aneurysm, without rupture, unspecified; Z87.891 Personal history of nicotine dependence | CPT/HCPCS: 99214 ==

== ENCOUNTER → 2023-02-06 10:05 | Outpatient (BNVA) | payer MEDICARE, SELFPAY | PROVIDERS: PCP Family Medicine; Visit Provider Internal Medicine Pulmonary Disease | DX: R05.8 Other specified cough (principal); R06.02 Shortness of breath; R91.1 Solitary pulmonary nodule; K22.2 Esophageal obstruction; R42 Dizziness and giddiness; Z87.891 Personal history of nicotine dependence; Z79.899 Other long term (current) drug therapy | CPT/HCPCS: 99214 ==

== ENCOUNTER 2023-02-25 13:06 | Outpatient (CLI) | payer MEDICARE, SELFPAY | END 2023-02-25 13:07 | disposition home or self-care (01) | LOC: RT 13:07 | PROVIDERS: PCP Family Medicine; Visit Provider Internal Medicine Pulmonary Disease | DX: R91.1 Solitary pulmonary nodule (principal); R06.02 Shortness of breath | CPT/HCPCS: 94010; 94618; 94726; 94729 ==

== ENCOUNTER 2023-06-08 14:33 | Outpatient (CLI) | payer MEDICARE, SELFPAY ==
--- NOTE | 2023-06-08 15:00 | CT_ITS ---
WS: [id number] CTA THORACIC AORTA WITH AND WITHOUT CONTRAST HISTORY: TAA TECHNIQUE: CT imaging of the thorax is performed with and without contrast. After noncontrast imaging is performed, CT angiogram is performed during injection of Omnipaque 350; 100 mL IV.. Sagittal and coronal reconstructions, sagittal and coronal MIP imaging is submitted. All CT scans at [facility] use at least one of these dose optimization techniques: automated exposure control; mA and/or k V adjustment per patient size (includes targeted exams where dose is matched to clinical indication); or iterative reconstruction. DLP: 873.48 mGy.cm COMPARISON: 06/20/2022, 12/18/2020 Ectatic thoracic aorta. Very slight increase in the amount of plaque which is calcified in the aorta. No significant increase in size of the ascending thoracic aorta. Maximum diameter is 4.5 cm. Aorta r eturns to normal caliber along the aortic arch. At the level of the trisha maximal transverse diamete r of 3.1 cm. There is intimal thickening and calcified plaque. No dissection. No ulcerated plaque. Mildly prominent pulmonary artery. No filling defects in the proximal pulmonary arteries. Mild LEFT heart enlargement. No pericardial or pleural effusion. No suspicious mass or pulmonary nodu les. Previously described pulmonary nodules at the lung bases are not as well visualized today. There is no pulmonary mass. No pneumonia. No mediastinal or hilar adenopathy. Negative chest wall. Small h iatal hernia. Partially visualized RIGHT renal cyst measures 3.7 x 3.8 cm. No destructive bone lesion s. IMPRESSION: 1. Stable mild ascending thoracic aortic aneurysm with a maximal diameter of 4.5 cm. No change since 06/20/2022. 2. No pulmonary mass or increasing size of pulmonary nodules. 3. No mediastinal or hilar adenopathy.
[2023-06-08 15:30] LABS: Blood Urea Nitrogen 15 mg/dL (8-23)
[2023-06-08] MEDS: iohexol 350 mg/mL 500 mL Btl (per mL) IV (15:40)
== END 2023-06-08 14:34 | disposition home or self-care (01) ==
LOC: RAD 14:34
PROVIDERS: PCP Family Medicine; Visit Provider Internal Medicine Cardiovascular Disease
DX: I71.21 Aneurysm of the ascending aorta, without rupture (principal)
CPT/HCPCS: 71275; 82565; 84520; Q9967

== ENCOUNTER → 2023-07-14 12:56 | Outpatient (BNVA) | payer MEDICARE, SELFPAY | PROVIDERS: PCP Family Medicine; Visit Provider Nurse Practitioner Family | DX: L57.0 Actinic keratosis (principal); L82.1 Other seborrheic keratosis; L82.0 Inflamed seborrheic keratosis; L73.1 Pseudofolliculitis barbae; Z85.820 Personal history of malignant melanoma of skin; D22.5 Melanocytic nevi of trunk; L81.4 Other melanin hyperpigmentation; L21.8 Other seborrheic dermatitis; Z85.828 Personal history of other malignant neoplasm of skin | CPT/HCPCS: 17000; 17110; 99203 ==

== ENCOUNTER → 2023-08-10 09:56 | Outpatient (BNVA) | payer MEDICARE, SELFPAY | PROVIDERS: PCP Family Medicine; Visit Provider Internal Medicine Pulmonary Disease | DX: R05.8 Other specified cough (principal); R06.02 Shortness of breath; R91.1 Solitary pulmonary nodule; T17.908A Unspecified foreign body in respiratory tract, part unspecified causing other injury, initial encounter; K22.2 Esophageal obstruction; R42 Dizziness and giddiness; X58.XXXA Exposure to other specified factors, initial encounter | CPT/HCPCS: 99214 ==

== ENCOUNTER → 2023-09-21 10:01 | Outpatient (BNVA) | payer MEDICARE, SELFPAY | PROVIDERS: PCP Family Medicine; Visit Provider Nurse Practitioner Family | DX: I71.20 Thoracic aortic aneurysm, without rupture, unspecified (principal); I13.10 Hypertensive heart and chronic kidney disease without heart failure, with stage 1 through stage 4 chronic kidney disease, or unspecified chronic kidney disease; N18.9 Chronic kidney disease, unspecified; Z87.891 Personal history of nicotine dependence | CPT/HCPCS: 99214 ==

== ENCOUNTER → 2024-03-09 13:57 | Outpatient (BNVA) | payer MEDICARE, SELFPAY | PROVIDERS: PCP Family Medicine; Visit Provider Internal Medicine Critical Care Medicine | DX: R06.09 Other forms of dyspnea (principal); F17.211 Nicotine dependence, cigarettes, in remission; R91.1 Solitary pulmonary nodule; I27.20 Pulmonary hypertension, unspecified; Z71.89 Other specified counseling | CPT/HCPCS: 99214 ==

== ENCOUNTER 2024-06-15 11:06 | Outpatient (CLI) | payer MEDICARE, SELFPAY ==
--- NOTE | 2024-06-15 11:00 | CT_ITS ---
WS: [id number] CTA THORACIC AORTA WITH AND WITHOUT CONTRAST HISTORY: Ascending aortic aneurysm TECHNIQUE: CTA imaging of the thorax is performed with and without contrast. After noncontrast imagin g is performed, CT angiogram is performed during injection of Omnipaque 350; 100 mL IV.. Sagittal and coronal reconstructions, sagittal and coronal MIP imaging is submitted. All CT scans at [facility] use at least one of these dose optimization techniques: automated exposure control; mA and/or kV adjustment per patient size (includes targeted exams where dose is matched to clinical indication) ; or iterative reconstruction. DLP: 801.12 mGy.cm COMPARISON: 06/08/2023 Good contrast opacification thoracic aorta. Maximum measurement of the ascending aorta is 4.2 cm. Laura meter is slightly less as compared to the prior study but not significantly changed. There is no enla rgement. Sinus of Valsalva 3.8 cm. Sinotubular junction 3.1 cm. Very minimal plaque. Normal aortic ar ch. Descending thoracic aorta is normal. There is no dissection. Mild plaque in the aortic arch. Pulmonary artery size is very slightly prominent. No filling defects in the pulmonary arteries. Mild LEFT heart enlargement is unchanged. No RIGHT heart strain. No pulmonary mass or nodule. No pneumonia . No nodule at the RIGHT lung base. No mediastinal or hilar adenopathy. Partially visualized RIGHT renal cystic mass measures 4.2 x 3.6 cm does not enhance within the portio n imaged. Mild perinephric stranding around each kidney. No adrenal mass. No osteoblastic or osteolytic bone disease. CT/CT angio chest [id number] IMPRESSION: 1. Stable mild, ascending aortic aneurysm. Maximum diameter 4.2 cm. Measuremen t is slightly less than noted on the prior exam. There has been no progression. 2. No pulmonary mass or pneumonia. 3. Mild LEFT heart enlargement, stable. 4. No mediastinal or hilar adenopathy.
[2024-06-15] MEDS: iohexol 350 mg/mL 500 mL Btl (per mL) IV (11:40)
== END 2024-06-15 11:07 | disposition home or self-care (01) ==
PROVIDERS: PCP Family Medicine; Visit Provider Nurse Practitioner Family
DX: I71.21 Aneurysm of the ascending aorta, without rupture (principal); N28.1 Cyst of kidney, acquired
CPT/HCPCS: 71275

== ENCOUNTER → 2024-09-06 13:08 | Outpatient (BNVA) | payer MEDICARE, SELFPAY | PROVIDERS: PCP Family Medicine; Visit Provider Orthopaedic Surgery | DX: M65.322 Trigger finger, left index finger (principal) | CPT/HCPCS: 99204 ==

== ENCOUNTER 2024-09-21 07:59 | Day surgery (SDC) | payer MEDICARE, SELFPAY ==
[2024-09-21] VITALS (7 sets, daily range): BP systolic 92–162; BP diastolic 58–85; PULSE 58–71; RESP 16–17; TEMP 36.2–36.6; O2SAT 94–99; BMI 31.4
[2024-09-21 08:43] LABS: Glucose Point of Care 89 mg/dL (70-110)
--- NOTE | 2024-09-21 08:48 | ANES.PREANE2 ---
Pre-Anesthetic Assessment Height/Weight: Height 1.8 m Weight 102.058 kg Temp Pulse Resp BP Pulse Ox O2 Del Method 97.6 F 62 17 162/85 95 Room Air 09/21/24 08:23 09/21/24 08:23 09/21/24 08:23 09/21/24 08:23 09/21/24 08:23 09/21/24 08:23 Operation Date: 09/21/24 09:30 Proposed Procedures p LEFT INDEX FINGER TRIGGER RELEASE(Left) - Miguel Garcia MD Familial anesthetic complications: Drank small amounts of orange juice at 0200 for low BG, thinks it had pulp Was Beta Sandra taken within 24 hours: Yes Was Clonidine taken within 24 hours: N/A Last intake: Intake Last Liquid Date 09/21/24 Last Liquid Time 02:00 Last Solid Date 09/20/24 Last Solid Time 19:00 Social No alcohol and No tobacco Exam alert, oriented x 3, clear to auscultation bilaterally and regular rate & rhythm Airway Mallampati: Class II Dentition: partials CV/HEM Congestive Heart Failure (diastolic chf grade II - able to achieve 4 METs) and Hypertension mild Pulm HTN Mild TVR and AVR Metabolic Diabetes Mellitus Anesthetic Plan ASA status: 3 Anesthesia: MAC Risk of > 500 ml blood loss (7ml/kg in children): No Medications/Allergies Home Medications ?Medication ?Instructions ?Recorded ?Confirmed ?Last Taken ?Type insulin aspart U-100 100 unit/mL 5 unit SUBCUT TID 09/26/19 09/20/24 09/20/24 History (3 mL) subcutaneous pen (Novolog FlexPen U-100 Insulin aspart) insulin glargine 100 unit/mL 100 unit SUBCUT DAILY 09/26/19 09/20/24 09/20/24 History subcutaneous solution (Lantus U-100 Insulin) isosorbide mononitrate 60 mg 120 mg PO DAILY 09/26/19 09/20/24 09/20/24 History tablet,extended release 24 hr metoprolol succinate 50 mg 25 mg PO DAILY 04/23/21 09/20/24 09/20/24 History tablet,extended release 24 hr potassium chloride 8 mEq 8 meq PO DAILY 30 days #30 caps 09/17/21 09/20/24 09/20/24 Rx capsule,extended release aspirin 325 mg tablet 325 mg PO DAILY 10/09/22 09/20/24 09/16/24 History budesonide-formoterol HFA 80 2 puff inhalation BID PRN 12/18/22 09/20/24 Unknown History mcg-4.5 mcg/actuation aerosol Shortness Of Breath Or Wheezing inhaler (Symbicort) fluticasone propionate 50 1 spray intranasal BID PRN 12/18/22 09/20/24 Unknown History mcg/actuation nasal allergies spray,suspension (Flonase Allergy Relief) nifedipine 90 mg tablet,extended 180 mg PO DAILY 12/18/22 09/20/24 09/20/24 History release albuterol sulfate 90 mcg/actuation 2 puff inhalation Q6H PRN 08/10/23 09/20/24 Unknown History aerosol inhaler Shortness Of Breath losartan 25 mg tablet 25 mg PO DAILY #90 tabs 08/02/24 09/20/24 09/20/24 Rx Allergies Allergy/AdvReac Type Severity Reaction Status Date / Time No Known Allergies Allergy Verified 09/06/24 13:27 [facility] Anesthesia Medical History Chronic kidney disease (CKD) Accelerated hypertension Lung nodule Melanoma Chest tightness Aortic valve stenosis Agatston coronary artery 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 Abnormal cardiovascular stress test Thoracic aortic aneurysm (TAA) Hypertension Hyperlipidemia Surgical History Hx of appendectomy History of shoulder surgery Family History Father CAD (coronary artery disease) Family/Other Cancer Mother Dementia Grandmother Diabetes Other Family history of premature coronary artery disease Hyperlipidemia Hypertension Denies family history of Clotting disorder Chronic kidney disease (CKD) Suicide Anesthesia complication Bleeding disorder Lung disease Stroke Social History Smoking and tobacco/nicotine status: unknown if used tobacco/nicotine Quit status (tobacco/nicotine): has quit using Year quit tobacco: 1999 - PD x 30 Years Alcohol intake: never Substance/Drug Use: never Lives independently: Yes Household members: none Marital status: / Current occupational status: retired Do you think of yourself as: Straight/Heterosexual Current gender identity: Male Data Anesthesia 09/21/24 08:35 Cardiac Studies: Echocardiogram 09/12/22 Echocardiogram Ultrasound 11/03/19 Sestamibi Stress Test (Cardiology) 10/21/19
[2024-09-21] MEDS: sodium chloride 0.9% 1,000 ML 30 ML IV (08:58)
[2024-09-21 09:13] LABS: Anion Gap 14.4 (5-19); Blood Urea Nitrogen 20 mg/dL (8-23); Calcium 8.8 mg/dL (8.5-10.5); Carbon Dioxide 30 mmol/L (22-29); Chloride 103 mmol/L (98-107); Creatinine Clr Calc Pharmacy 83.6142; Glucose 90 mg/dL (65-115); Osmolality Calculated 300 mOsm/kg (285-295); Potassium 3.4 mmol/L (3.5-5.1); Sodium 144 mmol/L (136-145)
--- NOTE | 2024-09-21 10:06 | W.PM.OPSFHP ---
Same Day Surgery H&P Indication for Procedure/HPI DATE OF PROCEDURE: September 21, 2024 CHIEF COMPLAINT/INDICATIONFOR SURGICAL PROCEDURE: Left index trigger finger PREOP DIAGNOSIS: Left index trigger finger PLANNED PROCEDURE: Operation Date: 09/21/24 09:30 Proposed Procedures p LEFT INDEX FINGER TRIGGER RELEASE(Left) - Miguel Garcia MD Medications/Allergies* Home Medications ?Medication ?Instructions ?Recorded ?Confirmed ?Type insulin aspart U-100 100 unit/mL 5 unit SUBCUT TID 09/26/19 09/20/24 History (3 mL) subcutaneous pen (Novolog FlexPen U-100 Insulin aspart) insulin glargine 100 unit/mL 100 unit SUBCUT DAILY 09/26/19 09/20/24 History subcutaneous solution (Lantus U-100 Insulin) isosorbide mononitrate 60 mg 120 mg PO DAILY 09/26/19 09/20/24 History tablet,extended release 24 hr metoprolol succinate 50 mg 25 mg PO DAILY 04/23/21 09/20/24 History tablet,extended release 24 hr aspirin 325 mg tablet 325 mg PO DAILY 10/09/22 09/20/24 History budesonide-formoterol HFA 80 2 puff inhalation BID PRN 12/18/22 09/20/24 History mcg-4.5 mcg/actuation aerosol Shortness Of Breath Or Wheezing inhaler (Symbicort) fluticasone propionate 50 1 spray intranasal BID PRN 12/18/22 09/20/24 History mcg/actuation nasal allergies spray,suspension (Flonase Allergy Relief) nifedipine 90 mg tablet,extended 180 mg PO DAILY 12/18/22 09/20/24 History release albuterol sulfate 90 mcg/actuation 2 puff inhalation Q6H PRN 08/10/23 09/20/24 History aerosol inhaler Shortness Of Breath Allergies/Adverse Reactions Allergy/AdvReac Type Severity Reaction Status Date / Time No Known Allergies Allergy Verified 09/06/24 13:27 Current Medications: Generic Name Dose Route Start Last Admin Trade Name Freq PRN Reason Stop Dose Admin Sodium Chloride 1,000 mls @ 30 mls/hr 09/21/24 08:15 09/21/24 08:58 Sodium Chloride 0.9% IV 09/22/24 08:14 30 mls/hr .Q24H JORGE ALBERTO Administration Pertinent History/Comorbid Conditions* Medical History (Updated 09/06/24 @ 14:03 by Miguel Garcia MD) Chronic kidney disease (CKD) Accelerated hypertension Lung nodule Melanoma Chest tightness Aortic valve stenosis Agatston coronary artery 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 Abnormal cardiovascular stress test Thoracic aortic aneurysm (TAA) Hypertension Hyperlipidemia Surgical History (Updated 09/26/19 @ 14:55 by Erick Sanchez MD) Hx of appendectomy History of shoulder surgery Family History (Updated 10/16/20 @ 14:19 by Kay Galvez RN) Diabetes Grandmother CAD (coronary artery disease) Father Dementia Mother Hyperlipidemia Family history of premature coronary artery disease Cancer Family/Other Hypertension Denies family history of Clotting disorder Chronic kidney disease (CKD) Suicide Anesthesia complication Bleeding disorder Lung disease Stroke Social History Smoking and tobacco/nicotine status: unknown if used tobacco/nicotine Quit status (tobacco/nicotine): has quit using Year quit tobacco: 1999 - 2PPD x 30 Years Alcohol intake: never Substance/Drug Use: never Lives independently: Yes Household members: none Marital status: / Current occupational status: retired Do you think of yourself as: Straight/Heterosexual Current gender identity: Male Pertinent Exam Findings alert, oriented x 3, clear to auscultation bilaterally, regular rate & rhythm, operative site marked and procedure specific exam findings Recommendations Surgery/Procedure today Coding Level of Care Code Acute Code for Chg Fwd
[2024-09-21] MEDS: ceFAZolin 2,000 mg SDV 2000 MG IVP (10:12)
[2024-09-21] MEDS: BUPivacaine 0.5% INJ 10 mL INJECTION (10:32)
--- NOTE | 2024-09-21 10:52 | PM.OP ---
Operative Report Date of procedure: September 21, 2024 Surgeon: Miguel Garcia MD Procedure: Preoperative diagnosis: Trigger finger left index finger Postop diagnosis: Same Procedure: Open trigger finger release left index finger Surgeon: Miguel Garcia MD Anesthesia: IV sedation with local anesthetic Tourniquet time: 10 minutes at 250 mmHg EBL: 1 cc Complications: None Indications: Roshan is a 79-year-old white male comes into the orthopedic clinics with triggering and catching of his left index finger. Its become worse over the course the last several months and is now quite painful with use of his hand. After clinical evaluation is felt patient would most benefit from surgical release and that injections or therapies would not be of any benefit. All risk benefits treatment alternatives have been discussed with him and he is agreeable to this at this time. Procedure: After obtaining the consent patient taken to the operating room placed on the operative table supine position and IV sedation was administered. Pneumatic cuffs placed on proximal left arm left arm was prepped and draped usual fashion. After surgical timeout surgical area was then injected with approximately 5 cc of half percent Marcaine plain for anesthetic effect. Subsequently identification of the flexor tendon of the index finger was identified on the distal palmar crease a small 1-1/2 cm incision was made along this flexion crease. Skin was held back with skin hooks and then blunt dissection with tenotomy scissor was done down to the tendon sheath. Right nail retractors were now placed for deeper exposure. Tendon sheath was divided with #15 blade along the course of its route. Then small tenotomy scissors then used sharp and blunt fashion to The A1 aileen. Once was done fingers with range of motion found to be moving freely without any more catching. Tendon can be seen freely moving within the tendon sheath now. Wounds then closed with 3-0 nylon interrupted sutures. The wounds were then dressed with Xeroform gauze sterile gauze dressing and a Curlex wrap as well as Dmitriy wrap for compression. Pneumatic cuff was deflated at the point of closing the wound after 10 minutes total tourniquet time. Patient is awakened transferred to cover room stable condition
--- NOTE | 2024-09-21 11:45 | ANE.PACU2 ---
Inpatient post-anesthesia follow up: Airway intact: Yes Vital signs: Temperature 97.8 F Pulse Rate 64 Respiratory Rate 17 Blood Pressure 110/67 Pulse Oximetry 97 Oxygen Delivery Me thod Room Air Oxygen Flow Rate Fraction of Inspir ed Oxygen Hydration adequate: Yes Nausea and vomiting: No Pain level: 1 Mental status: Baseline
== END 2024-09-21 11:45 | disposition home or self-care (01) ==
PROVIDERS: Anesthesiology; PCP Family Medicine; Visit Provider Orthopaedic Surgery
PROC: (CPT 26055; principal; 2024-09-21 09:20)
DX: M65.322 Trigger finger, left index finger (principal); Z87.891 Personal history of nicotine dependence; Z79.82 Long term (current) use of aspirin; Z79.4 Long term (current) use of insulin; E11.22 Type 2 diabetes mellitus with diabetic chronic kidney disease; I13.0 Hypertensive heart and chronic kidney disease with heart failure and stage 1 through stage 4 chronic kidney disease, or unspecified chronic kidney disease; N18.9 Chronic kidney disease, unspecified; I50.30 Unspecified diastolic (congestive) heart failure
CPT/HCPCS: 26055; 36415; 36416; 80048; 82962; J0690; J2704; J3010; J3490; J7030

== ENCOUNTER → 2024-09-29 13:20 | Outpatient (BNVA) | payer MEDICARE, SELFPAY | PROVIDERS: PCP Family Medicine; Visit Provider Orthopaedic Surgery | DX: Z98.890 Other specified postprocedural states (principal) | CPT/HCPCS: 99024 ==

== ENCOUNTER 2025-03-13 13:16 | Inpatient (IN) | payer MEDICARE, SELFPAY ==
[2025-03-13] VITALS (9 sets, daily range): BP systolic 95–146; BP diastolic 58–82; PULSE 63–99; RESP 11–22; TEMP 36.7; O2SAT 90–94; BMI 34.0
--- OUTSIDE RECORDS SUMMARY | 2025-03-13 13:21 | XMS_ITS | Clinical Summary ---
Author Organization [facility] [place] Address [address] [place] [address] Phone Care Team Providers Care Editor Trade Journal Name Role Phone Anitha Jacob Primary Care Provider Allergies No known active allergies Medications insulin aspart U-100 (NovoLOG) 100 unit/mL pen syringeIndications :Type 2 diabetes mellitus without complication, with long-term current use of insulin ([facility]) INJECT 16 UNITS UNDER THE SKIN EVERY DAY PER SLIDING SCALE 75 mL 2 0 Active carvediloL (COREG) 25 mg tablet Take 1 Tablet (25 mg) by mouth 2 times daily with meals. 180 Tablet 4 0 Active NIFEdipine (PROCARDIA XL) 60 mg Extended Release 24 hour tablet Take 2 Tablets (120 mg) by mouth daily. 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 90 Tablet 4 0 Active Vascepa 1 gram CapsuleIndications :Mixed hyperlipidemia TAKE 2 CAPSULES TWICE DAILY 360 Capsule 0 Active Insulin [place], Disposable, (BD Ultra-Fine Short Pen Needle) 31 gauge x 5/16 NeedleIndications: Type 2 diabetes mellitus without complication, with long-term current use of insulin ([facility]) Dispense 1 box 100 Each 6 0 Active ergocalciferol (VITAMIN D2) 50,000 unit capsuleIndications :Vitamin D deficiency TAKE 1 CAPSULE EVERY WEEK 12 Capsule 3 0 Active blood sugar diagnostic (FreeStyle Lite Strips) StripIndications:T ype 2 diabetes mellitus without complication, with long-term current use of insulin ([facility]) USE TO TEST THREE TIMES DAILY BEFORE MEALS. Please substitute with what insurance prefers. 300 Strip 6 0 Active metoprolol succinate (TOPROL XL) 100 mg Extended Release 24 hour tabletIndications: Essential hypertension Take 0.5-1 Tablets (50-100 mg) by mouth daily. 90 Tablet 1 Active Blood-Glucose Sensor (Dexcom G6 Sensor) DeviceIndications: Type 2 diabetes mellitus without complication, with long-term current use of insulin ([facility]) Check blood sugar before meals and at bedtime. 1 Each 1 1 Active Blood-Glucose Meter,Continuous (Dexcom Technical Systems Architect)Indicatio ns:Type 2 diabetes mellitus without complication, with long-term current use of insulin ([facility]) Check blood sugar before each meal and at bedtime. 1 Each 1 1 Active insulin glargine (Lantus Solostar U-100 Insulin) 100 unit/mL pen syringeIndications :Type 2 diabetes mellitus without complication, with long-term current use of insulin ([facility]) INJECT 80 UNITS UNDER THE SKIN EVERY NIGHT AT BEDTIME. 45 mL 3 1 Active rosuvastatin (CRESTOR) 20 mg tabletIndications: Mixed hyperlipidemia Take 1 Tablet (20 mg) by mouth daily at bedtime. 90 Tablet 3 1 Active fenofibrate (LOFIBRA) 160 mg TabletIndications: Mixed hyperlipidemia Take 1 Tablet (160 mg) by mouth daily. 90 Tablet 3 1 Active Active Problems Problem Noted Date Diagnosed Date Severe obesity (BMI 35.0-39.9) with comorbidity 12/25/2019 Stage 3 chronic kidney disease 12/25/2019 Essential hypertension 05/20/2018 Mixed hyperlipidemia 05/20/2018 Type 2 diabetes mellitus, wi th long-term current use of insulin 05/20/2018 Immunizations Immunization Administration Dates Next Due (PNEUMOVAX 23)(50 YRS UP) PN EUMOCOCCAL POLYSACCHARIDE (PPV23) 0.5 ML, IM 2019 (TDVAX)(7 YRS UP) TETANUS AN D DIPHTHERIA TOXOIDS, ADSORBED (2 LF OF TETANUS TOXOID AND 2 LF OF DIPHTHERIA TOXOID), 0.5ML (PF), IM 10/13/2000,01/20/1995 Hepatitis A Vaccine 07/22/1997,08/29/1996 Hepatitis B Vaccine 10/14/1996,05/05/1996,1995 Influenza Vaccine High Dose 65+ Yrs IM 9,05/20/2018 Family History Medical History Relation Name Comments Hypertension Father Hypertension Mother Relation Name Status Comments Father Mother Social History Tobacco Use Types Packs/Day Years Used Date Smoking Tobacco: Former Cigarettes 1 20 0 12/05/1979 - 12/05/1999 Smokeless Tobacco: Never Tobacco Cessation:Counseling Given: Yes Alcohol Use Standard Drinks/Week Comments No 0 (1 standard drink = 0.6 oz pur e alcohol) Sex and Gender Information Value Date Recorded Sex Assigned at Not on file Legal Sex Male 6:27 AM INTERNATIONAL COORDINATOR Gender Identity Not on file Sexual Orientation Not on file Last Filed Vital Signs Vital Sign Reading Time Taken Comments Blood Pressure 126/59 08/27/2020 11:53 AM INTERNATIONAL COORDINATOR Pulse 95 08/27/2020 11:53 AM INTERNATIONAL COORDINATOR Temperature 36.4 C (97.5 F) 08/27/2020 11:53 AM INTERNATIONAL COORDINATOR Respiratory Rate 18 02/21/2020 1:05 PM CDT Oxygen Saturation 92% 08/27/2020 11:53 AM INTERNATIONAL COORDINATOR Inhaled Oxygen Concentration - - Weight 111 kg (244 lb 12.8 oz) 08/27/2020 11:53 AM INTERNATIONAL COORDINATOR Height 177.8 cm (5' 10 ) 08/27/2020 11:53 AM INTERNATIONAL COORDINATOR Body Mass Index 35.13 08/27/2020 11:53 AM INTERNATIONAL COORDINATOR Plan of Treatment Health Maintenance Due Date Last Done Comments DIABETES ANNUAL FOOT EXAM 1963 Traditional Medicare (ACO) A nnual Wellness Visit 1966 ZOSTER VACCINE (1 of 2) 1997 DTAP/TDAP/TD VACCINES (1 - Tdap) 10/14/2000 10/14/19, 01/20/1995 DIABETES MICROALBUMIN ANNUAL SCREEN 02/12/2020 02/11/2019 PNEUMOCOCCAL VACCINE 50+ YEA RS (2 of 2 - PCV) 2020 2019 DIABETES ANNUAL RETINAL EXAM 02/22/2021, 02/11/2019, 11/24/2017, Additional history exists DIABETES HBA1C Q 6 MONTHS 02/24/20212020, 08/24/2019, 02/11/2019, Additional history exists LDL CHOLESTEROL ANNUAL 08/27/2021 , 02/11/2019, 08/04/2018 RSV VACCINE (60+ or ) (1 - 1-dose 75+ series) 2022 INFLUENZA VACCINE (#1) 2025 2019, 2017 FIT/FOBT Q 1 year Discontinued 06/27/2019 COLORECTAL SCREENING Discontinued 01/31/2020, 01/31/20 20 Colorectal Cancer Screening Discontinued FIT-DNA Q 3 years Discontinued Flex Sig/CT Colonography Q 5 years Discontinued Procedures Procedure Name Priority Date/Time Associated Diagnosis Comments LIPID PANEL Routine 08/27/2020 12:38 PM INTERNATIONAL COORDINATOR Mixed hyperlipidemia HEMOGLOBIN A1C Routine 08/27/2020 12:38 PM INTERNATIONAL COORDINATOR Type 2 diabetes mellitus without complication, with long-term current use of insulin ([facility]) OCCULT BLOOD IMMUNOASSAY, COLORECTAL SCREEN Routine 06/27/2019 4:13 PM INTERNATIONAL COORDINATOR Encounter for screening for malignant neoplasm of colon MICROALBUMIN/CREATI NINE RATIO, RANDOM UR Routine 02/11/2019 1:34 PM CDT Type 2 diabetes mellitus without complication, with long-term current use of insulin ([facility]) from Last 3 Months or Most Recently Relevant to Health Maintenance Results * (ABNORMAL) HEMOGLOBIN A1C (08/27/2020 12:38 PM INTERNATIONAL COORDINATOR) HEMOGLOBIN A1C 8.4(H) See Comment % 08/28/2020 6:19 PM INTERNATIONAL COORDINATOR [facility] EST. AVG GLUCOSE, A1C 194 mg/dL 08/28/2020 6:19 PM INTERNATIONAL COORDINATOR [facility] Blood Venipuncture / Unknown 08/27/2020 12:38 PM INTERNATIONAL COORDINATOR 08/27/2020 8:32 PM INTERNATIONAL COORDINATOR Narrative [facility] - 08/28/2020 6:19 PM INTERNATIONAL COORDINATOR HGB A1C INTERPRETATION NORMAL: <5.7% PRE-DIABETES: 5.7 - 6.4% DIABETES: 6.5% OR GREATER Falsely low A1C measurements can occur when: 1. Anemia and/or hemolytic anemia is present. 2. Hemoglobin variants present. 3. Renal failure. 4. Transfusion of blood product in the last 120 days. We recommend ordering a fructosamine test([id number]) to more accurately assess glycemic status if any of the above conditions are present. Skyla Mcknight OFFICER CAPTAIN CHEMISTRY ORDERABLES Final Re sult [facility] CLIA# [id number] [address] [place] [id number] * (ABNORMAL) LIPID PANEL (08/27/2020 12:38 PM INTERNATIONAL COORDINATOR) CHOLESTEROL 148 <200 mg/dL 08/28/2020 9:44 AM [facility] TRIGLYCERIDE 92 <150 mg/dL 08/28/2020 9:44 AM INTERNATIONAL COORDINATOR [facility] HDL 31(L) 40 - 59 mg/dL 08/28/2020 9:44 AM [facility] LDL CALCULATED 99 <100 mg/dL 08/28/2020 9:44 AM [facility] NON-HDL CHOLESTEROL 117 <130 mg/dL 08/28/2020 9:44 AM [facility] Blood Venipuncture / Unknown 08/27/2020 12:38 PM INTERNATIONAL COORDINATOR 08/27/2020 8:31 PM INTERNATIONAL COORDINATOR Narrative [facility] - 08/28/2020 9:44 AM INTERNATIONAL COORDINATOR TOTAL CHOLESTEROL mg/dL Desirable <200 Borderline high 200-239 High >=240 TRIGLYCERIDES mg/dL Normal <150 Borderline high 150-199 High 200-499 Very high >=500 HDL CHOLESTEROL mg/dL Low <40 Normal 40-59 Desirable >=60 NON HDL CHOLESTEROL mg/dL Optimal <130 Near Optimal 130-159 Borderline High 160-189 Very High >=190 CALCULATED LDL mg/dL LDL <70, OPTIMAL if have Atherosclerotic cardiovascular disease (ASCVD) or intermediate or higher (>7.5%) 10 year risk of ASCVD including most adults with diabetes. LDL <100, Optimal in adult patients with low (<7.5%) 10 year ASCVD risk LDL 100-160, Suboptimal LDL >160, High LDL >190, Very high ATPIII Guidelines Reference Ranges for Lipid Panels (NCEP/AMA) . Skyla Mcknight OFFICER CAPTAIN CHEMISTRY ORDERABLES Final Re sult Performing Organization Address City/[facility]/ZIP Co de Phone Number [facility] CLIA# [id number] [address] [place] [address] * OCCULT BLOOD IMMUNOASSAY, COLORECTAL SCREEN (06/27/2019 4:13 PM INTERNATIONAL COORDINATOR) Pathologist [facility] OCCULT BLOOD, STOOL Negative Negative 06/28/2019 10:10 AM INTERNATIONAL COORDINATOR [facility] Stool STOOL SPECIMEN / Unknown 06/27/2019 4:13 PM INTERNATIONAL COORDINATOR 06/27/2019 4:14 PM INTERNATIONAL COORDINATOR Anitha Jacob DO BODY FLUIDS AND STOOLS Kelsie devin Result Performing Organization Address [facility] Co de Phone Number [facility] CLIA# [id number] [facility] [place] [address] * (ABNORMAL) MICROALBUMIN/CREATININE RATIO, RANDOM UR (02/11/2019 1:34 PM CDT) MICROALBUMIN, URINE 6.3 No Reference Range mg/dL 02/11/2019 8:45 PM CDT [facility] CREATININE, URINE 125.1 40.0 - 278.0 mg/dL 02/11/2019 8:45 PM CDT [facility] Comment: Reference Range varies with fluid intake and diet. MICROALBUMIN/ CREAT RATIO, UR 50.4(H) <17.0 mg/g 02/11/2019 8:45 PM CDT [facility] Urine URINE SPECIMEN OBTAINED BY CLEAN CATCH PROCEDURE / Unknown Collection / Unknown 02/11/2019 1:34 PM CDT 02/11/2019 7:37 PM CDT Narrative [facility] - 02/11/2019 8:45 PM CDT Condition Microalbumin/Creat ratio Normal Males <17 Normal Females <25 Microalbuminuria Males 17-299 Microalbuminuria Females 25-299 Overt proteinuria >=300 Maren Gilman OFFICER CAPTAIN URINE ORDERABLES Final R esult [facility] CLIA# [id number] [place] [address] from Last 3 Months or Most Recently Relevant to Health Maintenance Insurance MEDICARE PART A AND B [facility] Care Teams Editor Trade Journal Relationship Specialty Start Date End Date Anitha Jacob DO [address] [place] [address] PCP - General Family Practice 05/20/18
--- OUTSIDE RECORDS SUMMARY | 2025-03-13 13:21 | XMS_ITS | Clinical Summary ---
Author Organization [facility] Donaldo vanegas Gardiner Address [address] [place] [address] Phone Care Team Providers Care Drywall Finisher Name Role Phone Anitha Jacob Primary Care Provider Allergies No known active allergies Medications fluticasone propionate (Flovent HFA) 220 mcg/actuation HFA Aerosol Inhaler Take 2 Puffs by inhalation every 12 hours. Rinse mouth after use. 12 Gram 6 022 Active losartan (COZAAR) 25 mg tablet Take 25 mg by mouth daily. Active blood sugar diagnostic StripIndications: Type 2 diabetes mellitus without complication, with long-term current use of insulin ([facility]) USE TO TEST THREE TIMES DAILY BEFORE MEALS. Please substitute with what insurance prefers. 300 Strip 6 023 Active Additional Information Patient not taking.Reported on 02/23/2025 polyethylene glycol (MIRALAX) 17 gram Powder in PacketIndications :Chronic constipation Take 1 Packet (17 Grams) by mouth daily. 100 Each 3 023 Active Additional Information Patient not taking.Reported on 02/23/2025 NovoLOG Flexpen U-100 Insulin 100 unit/mL (3 mL) pen syringe INJECT PER SCALE:70-139:0U , 141-180:3U, 181-240:4U, 241-300:6U, 301-350:8U, 351-400:10U, OVER 400:12U CALL 60 mL 3 023 Active makjl-6-[id number]-EPA-f ailin oil (Fish OiL) 1,000 mg Capsule Take 1 Capsule by mouth daily. 5 023 Active metoprolol succinate (TOPROL XL) 25 mg Extended Release 24 hour tabletIndications :Essential hypertension take 1 tablet every day 100 Tablet 3 024 Active isosorbide mononitrate (IMDUR) 120 mg Extended Release 24 hour tablet take 1 tablet every day 100 Tablet 3 024 Active tamsulosin (FLOMAX) 0.4 mg capsuleIndication s:Benign prostatic hyperplasia with post-void dribbling Take 1 Capsule (0.4 mg) by mouth daily. 90 Capsule 3 025 Active rosuvastatin (CRESTOR) 20 mg tabletIndications :Mixed hyperlipidemia TAKE 1 TABLET AT BEDTIME 100 Tablet 3 025 Active Blood-Glucose Sensor (FreeStyle Ruddy 3 Sensor) DeviceIndications :Type 2 diabetes mellitus with hyperglycemia, with long-term current use of insulin ([facility]) Use to monitor glucose continuously. Apply a sensor every 14 days. 6 Each 3 025 Active insulin glargine U-300 conc (Toujeo SoloStar U-300 Insulin) 300 unit/mL pen syringeIndication s:Type 2 diabetes mellitus without complication, with long-term current use of insulin ([facility]) INJECT 70 UNITS UNDER THE SKIN EVERY DAY AT BEDTIME. REPLACES LANTUS 15 mL 3 025 Active Insulin [place], Disposable, 31 gauge x 5/16 NeedleIndications :Type 2 diabetes mellitus with hyperglycemia, with long-term current use of insulin ([facility]) Use daily for insulin injection. 100 Each 6 025 Active Azelaic Acid (Finacea) 15 % GelIndications:Ro sacea Apply to affected area 2 times daily. 50 Gram 2 025 Active Additional Information Patient not taking.Reported on 02/23/2025 icosapent ethyL (Vascepa) 1 gram CapsuleIndication s:Mixed hyperlipidemia Take 2 Capsules (2 Grams) by mouth 2 times daily with meals. 120 Capsule 11 025 Active Additional Information Patient not taking.Reported on 02/23/2025 ergocalciferol (VITAMIN D2) 50,000 unit capsuleIndication s:Vitamin D deficiency Take 1 Capsule (50,000 Units) by mouth every 2 weeks. 12 Capsule 1 025 Active tirzepatide (Mounjaro) 2.5 mg/0.5 mL Pen InjectorIndicatio ns:Type 2 diabetes mellitus with hyperglycemia, with long-term current use of insulin ([facility]) Inject 0.5 mL (2.5 mg) by subcutaneous injection every 7 days. Use 2.5mg SQ every 7 days for 4 weeks then 5mg SQ every 7 days. 6 mL 025 Active NIFEdipine (PROCARDIA XL) 60 mg Extended Release 24 hour tablet TAKE 2 TABLETS EVERY DAY 180 Tablet 3 025 Active NIFEdipine (PROCARDIA XL) 60 mg Extended Release 24 hour tablet TAKE 2 TABLETS EVERY DAY 180 Tablet 3 024 2024 Discontinued tirzepatide (Mounjaro) 2.5 mg/0.5 mL Pen InjectorIndicatio ns:Type 2 diabetes mellitus with hyperglycemia, with long-term current use of insulin ([facility]) Inject 0.5 mL (2.5 mg) by subcutaneous injection every 7 days. 6 mL 3 025 2024 Discontinued(R eorder) diazePAM (Valium) 5 mg tabletIndications :Claustrophobia Take 1 Tablet (5 mg) by mouth one time only for 1 dose. Clarify: take one tablet 1 hour prior to MRI. If needed may take one more not to exceed 2 tablets total. 2 Tablet 025 2024 Active Problems Problem Noted Date Diagnosed Date Rosacea 12/14/2024 Benign prostatic hyperplasia with post-void drib blaise 09/12/2024 Trigger index finger of left hand 02/17/2024 Vitamin D deficiency 02/02/2022 Thoracic ascending aortic aneurysm 02/02/2022 Atherosclerosis of [place] co ronary artery of [place] heart without angina pectoris 02/02/2022 Severe obesity (BMI 35.0-39.9) with comorbidity 12/25/2019 Essential hypertension 05/20/2018 Type 2 diabetes mellitus wit h hyperglycemia, with long-term current use of insulin 05/20/2018 Mixed hyperlipidemia 05/20/2018 Resolved Problems Problem Noted Date Diagnosed Date Resolved Date Type 2 diabetes mellitus wit hout complication, with long-term current use of insulin 02/02/2022 02/11/2023 Stage 3 chronic kidney disease 12/25/2019 02/17/2021 Encounters Date Type Department Care Team Description 03/01/[address] [facility] [address] [place] [address] Anitha Jacob DO 03/01/[address] [facility] [address] [place] [address] Anitha Jacob DO Needs Orders Written; Patient Communication 02/23/2025 1:00 PM CDT Office Visit [facility] [address] [place] [address] Anitha Jacob DO Medicare annual wellness visit, subsequent (Primary Dx); Type 2 diabetes mellitus with hyperglycemia, with long-term current use of insulin ([facility]); History of melanoma; Atherosclerosis of [place] coronary artery of [place] heart without angina pectoris; Essential hypertension; Mixed hyperlipidemia; Benign prostatic hyperplasia with post-void dribbling; Aneurysm of ascending aorta without rupture; Severe obesity (BMI 35.0-39.9) with comorbidity ([facility]); Pain of right hip 02/08/[address] [facility] [address] [place] [address] Anitha Jacob DO 01/20/2025 Results Follow-Up [facility] [address] [place] [address] Savannah Steinberg FNP XR HIP 2 OR 3 VIEWS RT 01/18/2025 External Device Data STL ABSTRACTION Provider, Abstract 01/17/2025 2:53 PM CDT - 01/17/2025 11:59 PM CDT Hospital Encounter [facility] [address] [place] [phone] Savannah Steinberg FNP Discharge Disposition: Home or Self Care 01/17/2025 2:51 PM CDT - 01/17/2025 11:59 PM CDT Hospital Encounter [facility] [address] [place] [id number] Savannah Steinberg FNP Discharge Disposition: Home or Self Care 01/17/2025 1:40 PM CDT Office Visit [facility] [address] [place] [address] Savannah Steinberg FNP Mixed hyperlipidemia (Primary Dx); Vitamin D deficiency; Chronic right hip pain; Chronic right-sided low back pain with right-sided sciatica 01/17/2025 External Device Data STL ABSTRACTION Provider, Abstract 01/13/[address] [facility] [address] [place] [address] Anitha Jacob, DO Needs Orders Written 12/20/2024 External Device Data STL ABSTRACTION Provider, Abstract 12/16/2024 Results Follow-Up [facility] [address] [place] [address] Savannah Steinberg FNP BASIC METABOLIC PANEL, HEMOGLOBIN A1C 12/14/2024 1:20 PM CDT Office Visit [facility] [address] [place] [address] Savannah Steinberg FNP Type 2 diabetes mellitus with hyperglycemia, with long-term current use of insulin ([facility]) (Primary Dx); Essential hypertension; Mixed hyperlipidemia; Rosacea from Last 3 Months Immunizations Immunization Administration Dates Next Due (PNEUMOVAX 23)(50 YRS UP) PN EUMOCOCCAL POLYSACCHARIDE (PPV23) 0.5 ML, IM 2019 (TDVAX)(7 YRS UP) TETANUS AN D DIPHTHERIA TOXOIDS, ADSORBED (2 LF OF TETANUS TOXOID AND 2 LF OF DIPHTHERIA TOXOID), 0.5ML (PF), IM 10/13/2000,01/20/1995 Hepatitis A Vaccine 07/22/1997,08/29/1996 Hepatitis B Vaccine 10/14/1996,05/05/1996,1995 INFLUENZA VACCINE HIGH DOSE QUADRIVALENT 65 YR UP PF IM 05/18/2023 INFLUENZA VACCINE HIGH DOSE TRIVALENT SPLIT VIRUS, (65 YR UP), 0.5ML (PF), IM 06/14/2024 Influenza Seasonal Unspecifi ed Formulation IM 06/05/2022 Influenza Vaccine High Dose 65+ Yrs IM 9,05/20/2018 Pneumococcal Polysaccharide Vacc 23-ashley IM SCHIP 2019 Family History Medical History Relation Name Comments Hypertension Father Hypertension Mother Relation Name Status Comments Father Mother Social History Tobacco Use Types Packs/Day Years Used Date Smoking Tobacco: Former Cigarettes Q uit: 12/05/1999 Smokeless Tobacco: Never Alcohol Use Standard Drinks/Week Comments No 0 (1 standard drink = 0.6 oz pur e alcohol) Financial Resource Strain Answer Date R ecorded How hard is it for you to pa y for the very basics like food, housing, medical care, and heating? Not hard at all 02/11/2023 Food Insecurity Answer Date Recorded In the past 12 months, have you worried that your food would run out before you had money to buy more? Never true 02/11/2023 In the past 12 months, did y ou run out of food and didn't have money to buy more? Never true 02/11/2023 Transportation Needs Answer Date Record ed In the past 12 months, has l ack of transportation kept you from medical appointments or from getting medications? 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 Gender Identity Not on file Sexual Orientation Not on file Last Filed Vital Signs Vital Sign Reading Time Taken Comments Blood Pressure 110/56 02/23/2025 1:09 PM CDT Pulse 68 02/23/2025 1:09 PM CDT Temperature 36.8 C (98.3 F) 02/23/2025 1:09 PM CDT Respiratory Rate 18 02/23/2025 1:09 PM CDT Oxygen Saturation 94% 02/23/2025 1:09 PM CDT Inhaled Oxygen Concentration - - Weight 110.7 kg (244 lb) 02/23/2025 1:09 PM CDT Height 177.8 cm (5' 10 ) 02/23/2025 1:09 PM CDT Body Mass Index 35.01 02/23/2025 1:09 PM CDT Plan of Treatment Upcoming Encounters Date Type Department Care Team (Late st Contact Info) Description 08/25/2025 1:20 PM CAR DISPATCHER Office Visit [facility] [address] [place] [facility] [place] [address] Maryan Bibianayenny Clarke, [facility] [address] [facility] [place] [address] Health Maintenance Due Date Last Done Comments ZOSTER VACCINE (1 of 2) 1997 DTAP/TDAP/TD VACCINES (1 - Tdap) 10/14/2000 10/14/19, 01/20/1995 PNEUMOCOCCAL VACCINE 50+ YEA RS (2 of 2 - PCV) 2020 2019, 2019 DIABETES ANNUAL RETINAL EXAM 02/22/2021, 02/11/2019, 11/24/2017, Additional history exists DIABETES ANNUAL FOOT EXAM 01/03/2022 01/03/2021 RSV VACCINE (60+ or ) (1 - 1-dose 75+ series) 2022 INFLUENZA VACCINE (#1) 2025 , 05/18/2023, 06/05/2022, Additional history exists COVID-19 Vaccine (2 - 2024-2 6 season) 2025 02/22/2021 DIABETES HBA1C Q 6 MONTHS 06/15/20252024, 09/12/2024, 06/14/2024, Additional history exists DIABETES MICROALBUMIN ANNUAL SCREEN 09/12/2025 09/12/2024, 08/18/2023, 02/11/2023, Additional history exists LDL CHOLESTEROL ANNUAL 09/12/2025 , 06/14/2024, 11/17/2023, Additional history exists DIABETES: A1C (Auto Order) 12/14/202512/14, 09/12/2024, 06/14/2024, Additional history exists Traditional Medicare (ACO) A nnual Wellness Visit 02/24/2026 02/23/2025, 02/17/2024, 02/11/2023, Additional history exists FIT/FOBT Q 1 year Discontinued 06/27/2019 COLORECTAL SCREENING Discontinued 01/31/2020, 01/31/20 20 Colorectal Cancer Screening Discontinued FIT-DNA Q 3 years Discontinued Flex Sig/CT Colonography Q 5 years Discontinued Procedures Procedure Name Priority Date/Time Associated Diagnosis Comments XR HIP 2 OR 3 VIEWS RT Routine 01/17/2025 3:07 PM CDT Chronic right hip pain XR LUMBAR SPINE 2 OR 3 VW Routine 01/17/2025 3:07 PM CDT Chronic right-sided low back pain with right-sided sciatica HEMOGLOBIN A1C Routine 12/14/2024 1:56 PM CDT Type 2 diabetes mellitus with hyperglycemia, with long-term current use of insulin ([facility]) BASIC METABOLIC PANEL Routine 12/14/2024 1:56 PM CDT Type 2 diabetes mellitus with hyperglycemia, with long-term current use of insulin ([facility]) Essential hypertension Mixed hyperlipidemia MICROALBUMIN/CREATI NINE RATIO, RANDOM UR Routine 09/12/2024 2:15 PM CDT Type 2 diabetes mellitus with hyperglycemia, with long-term current use of insulin ([facility]) LIPID PANEL Routine 09/12/2024 2:15 PM CDT Type 2 diabetes mellitus with hyperglycemia, with long-term current use of insulin ([facility]) Essential hypertension Mixed hyperlipidemia ENDOSCOPY, COLON, SCREENING Routine 01/31/2020 OCCULT BLOOD IMMUNOASSAY, COLORECTAL SCREEN Routine 06/27/2019 4:13 PM CAR DISPATCHER from Last 3 Months or Most Recently Relevant to Health Maintenance Results * XR HIP 2 OR 3 VIEWS RT (01/17/2025 3:07 PM CDT) Anatomical Region Laterality Modality Lower Extremity Right Computed Radiogr aphy 01/17/2025 3:07 PM CDT Impressions 01/20/2025 7:42 AM CDT IMPRESSION: See below. Exam: XR HIP 2 OR 3 VIEWS RT Date/Time of Exam: 01/17/2025 3:07 PM Reason For Exam: See Diagnosis. Diagnosis: Chronic right hip pain; Chronic right hip pain. Findings: Comparison: None The osseous structures are intact. The hip joint is maintained. There is a synovial. Along the superior aspect right junction. The iliopectineal line and obturator rings are preserved. There is no evidence for fracture or dislocation. The adjacent soft tissue structures are unremarkable. IMPRESSION: 1. No evidence for fracture or dislocation. 2. The right joint space is well-maintained. There is a synovial pit along the superior aspect of the femoral head neck junction. Further characterization by MRI can be performed as clinically warranted. Narrative Procedure Note Salvador Narvaez MD - 01/20/2025 IMPRESSION: See below. Exam: XR HIP 2 OR 3 VIEWS RT Date/Time of Exam: 01/17/2025 3:07 PM Reason For Exam: See Diagnosis. Diagnosis: Chronic right hip pain; Chronic right hip pain. Findings: Comparison: None The osseous structures are intact. The hip joint is maintained. There is a synovial. Along the superior aspect right junction. The iliopectineal line and obturator rings are preserved. There is no evidence for fracture or dislocation. The adjacent soft tissue structures are unremarkable. IMPRESSION: 1. No evidence for fracture or dislocation. 2. The right joint space is well-maintained. There is a synovial pit along the superior aspect of the femoral head neck junction. Further characterization by MRI can be performed as clinically warranted. Savannah Steinberg SPECIAL WARFARE BOAT OPERATOR DIAGNOSTIC IMAGING ORDERAB LES Final Result * XR LUMBAR SPINE 2 OR 3 VW (01/17/2025 3:07 PM CDT) Anatomical Region Laterality Modality Spine Computed Radiogr aphy 01/17/2025 3:07 PM CDT Impressions 01/18/2025 1:00 PM CDT IMPRESSION: Moderate to advanced multilevel lumbar degenerative disease. Narrative 01/18/2025 1:00 PM CDT EXAM: XR LUMBAR SPINE 2 OR 3 VW DATE/TIME OF EXAM: 01/17/2025 3:07 PM REASON FOR EXAM: See Diagnosis DIAGNOSIS: Chronic right-sided low back pain with right-sided sciatica; Chronic right-sided low back pain with right-sided sciatica COMPARISON: None FINDINGS: Vertebral body heights are maintained; no compression or displaced fracture is identified. Alignment is within normal limits. Multilevel degenerative changes throughout the lumbar spine including moderate to severe spondylosis at L4-5 with associated endplate osteophyte ridging. Moderate degenerative facet disease is also suspected at the lower lumbar levels. Bones appear osteopenic. Procedure Note Leonel Blankenship MD - 01/18/2025 EXAM: XR LUMBAR SPINE 2 OR 3 VW DATE/TIME OF EXAM: 01/17/2025 3:07 PM REASON FOR EXAM: See Diagnosis DIAGNOSIS: Chronic right-sided low back pain with right-sided sciatica; Chronic right-sided low back pain with right-sided sciatica COMPARISON: None FINDINGS: Vertebral body heights are maintained; no compression or displaced fracture is identified. Alignment is within normal limits. Multilevel degenerative changes throughout the lumbar spine including moderate to severe spondylosis at L4-5 with associated endplate osteophyte ridging. Moderate degenerative facet disease is also suspected at the lower lumbar levels. Bones appear osteopenic. IMPRESSION: Moderate to advanced multilevel lumbar degenerative disease. Savannah Steinberg [facility] DIAGNOSTIC IMAGING ORDERAB LES Final Result * (ABNORMAL) HEMOGLOBIN A1C (12/14/2024 1:56 PM CDT) HEMOGLOBIN A1C 7.1(H) <5.7 % [facility] Comment: For someone without known diabetes, a hemoglobin A1c value of 6.5% or greater indicates that they may have diabetes and this should be confirmed with a follow-up test. For someone with known diabetes, a value <7% indicates that their diabetes is well controlled and a value greater than or equal to 7% indicates suboptimal control. A1c targets should be individualized based on duration of diabetes, age, comorbid conditions, and other considerations. Currently, no consensus exists regarding use of hemoglobin A1c for diagnosis of diabetes for children. ESTIMATED AVERAGE GLUCOSE (MG/DL) 157 mg/dL [facility] ESTIMATED AVERAGE GLUCOSE (MMOL/L) 8.7 mmol/L [facility] Comment: Test Performed at: [facility] [address] [facility] [place] [address] Wilman Dominguez MD Blood 12/14/2024 1:56 PM CDT 12/15/2024 2:49 AM CDT Savannah Steinberg [facility] CHEMISTRY ORDERABLES Final Result [facility] [phone] [facility] [address] [place] [address] * (ABNORMAL) BASIC METABOLIC PANEL (12/14/2024 1:56 PM CDT) GLUCOSE 103(H) 65 - 99 mg/dL [facility] Comment: Fasting reference interval For someone without known diabetes, a glucose value between 100 and 125 mg/dL is consistent with prediabetes and should be confirmed with a follow-up test. BUN 29(H) 7 - 25 mg/dL [facility] CREATININE 1.21 0.70 - 1.28 mg/dL [facility] GFR 62 > OR = 60 mL/min/1.7 3m2 [facility] BUN/CREAT RATIO 24(H) 6 - 22 (calc) [facility] SODIUM 140 135 - 146 mmol/L [facility] POTASSIUM 3.7 3.5 - 5.3 mmol/L [facility] CHLORIDE 101 98 - 110 mmol/L [facility] CO2 29 20 - 32 mmol/L [facility] CALCIUM 9.0 8.6 - 10.3 mg/dL [facility] Comment: Test Performed at: [facility] [address] [place] [address] Wilman Dominguez MD Blood 12/14/2024 1:56 PM CDT 12/15/2024 2:49 AM CDT Woodrowwatson Steinberg [facility] CHEMISTRY ORDERABLES Final Result [facility] [phone] [facility] [address] [place] [address] * (ABNORMAL) MICROALBUMIN/CREATININE RATIO, RANDOM UR (09/12/2024 2:15 PM CDT) Creatinine, Urine 132 20 - 320 mg/dL [facility] MICROALBUMIN, URINE 15.7 See Note: mg/dL [facility] Comment: Reference Range: Reference Range Not established MICROALBUMIN/CREAT RATIO, UR 119(H) <30 mg/g creat [facility] Comment: The ADA defines abnormalities in albumin excretion as follows: Albuminuria Category Result (mg/g creatinine) Normal to Mildly increased <30 Moderately increased 30-299 Severely increased > OR = 300 The ADA recommends that at least two of three specimens collected within a 3-6 month period be abnormal before considering a patient to be within a diagnostic category. Test Performed at: [facility] [address] Wilman Dominguez MD Urine URINE SPECIMEN OBTAINED BY CLEAN CATCH PROCEDURE / Unknown 09/12/2024 2:15 PM CDT 09/13/2024 5:43 AM CDT Savannah Steinberg [employer] W[employer] BOAT OPERATOR URINE ORDERABLES Final Res ult Performing Organization Address [facility] Co de Phone Number [facility] [phone] [facility] [address] * (ABNORMAL) LIPID PANEL (09/12/2024 2:15 PM CDT) CHOLESTEROL 77 <200 mg/dL [facility] HDL 37(L) > OR = 40 mg/dL [facility] TRIGLYCERIDE 81 <150 mg/dL [facility] LDL CALCULATED 24 mg/dL (calc) [facility] Comment: Reference range: <100 Desirable range <100 mg/dL for primary prevention; <70 mg/dL for patients with CHD or diabetic patients with > or = 2 CHD risk factors. LDL-C is now calculated using the Jose Manuel calculation, which is a validated novel method providing better accuracy than the Friedewald equation in the estimation of LDL-C. Carmelo ARCE et al. VASU. 2013;310(19): 0634-6211 (http://education.[employer]/faq/CIK751) CHOL/HDL RATIO 2.1 <5.0 (calc) [facility] NON-HDL CHOLESTEROL 40 <130 mg/dL (calc) [facility] Comment: For patients with diabetes plus 1 major ASCVD risk factor, treating to a non-HDL-C goal of <100 mg/dL (LDL-C of <70 mg/dL) is considered a therapeutic option. Test Performed at: [facility] [id number] [place] [address] Wilman Dominguez MD Blood 09/12/2024 2:15 PM CDT 09/13/2024 5:50 AM CDT Savannah Steinberg SPECIAL WARFARE BOAT OPERATOR CHEMISTRY ORDERABLES Final Result Performing Organization Address [facility] Co de Phone Number [facility] [phone] [facility] [address] * ENDOSCOPY, COLON, SCREENING (01/31/2020) Abstract Provider GI PROCEDURE ORDERABLES Final Result * OCCULT BLOOD IMMUNOASSAY, COLORECTAL SCREEN (06/27/2019 4:13 PM CAR DISPATCHER) OCCULT BLOOD, STOOL Negative Negative 06/28/2019 10:10 AM CAR DISPATCHER [facility] Stool STOOL SPECIMEN / Unknown 06/27/2019 4:13 PM CAR DISPATCHER 06/27/2019 4:14 PM CAR DISPATCHER Anitha Jacob DO BODY FLUIDS AND STOOLS Kelsie beltran Result [facility] CLIA# [id number] [address] [place] [address] from Last 3 Months or Most Recently Relevant to Health Maintenance Insurance [facility] [id number] MEDICARE PART A AND B Care Teams Drywall Finisher Relationship Specialty Start Date End Date Anitha Jacob DO [address] [place] [address] PCP - General Family Practice 05/20/18
--- OUTSIDE RECORDS SUMMARY | 2025-03-13 13:21 | XMS_ITS | Encounter Summary ---
Author Organization [facility] Address [address] [place] [address] Care Team Providers Care Woodworking Craftsman Name Role Phone Anitha Jacob DO Primary Care Provider [phone] Encounter Details Date Type Department Care Team (Latest Contact Info) Description 11/03/2001 Outpatient Historical [facility] FatouAngelo MD [address] [facility] [address] [place] [address] SURGERY FOLLOWUP, UNSPEC (Primary Dx) Social History Tobacco Use Types Packs/Day Years Used Date Smoking Tobacco: Never Assessed Sex and Gender Information Value Date Recorded Sex Assigned at Not on file Legal Sex Male 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 Gender Identity Not on file Sexual Orientation Not on file documented as of this encounter Plan of Treatment Not on file documented as of this encounter Visit Diagnoses Diagnosis Follow-up examination, following unspecified surgery- Primary documented in this encounter Additional Health Concerns Infection Onset Date Last Indicated Resolved Time R/O COVID-19 04/04/2020 04/04/2020 04/05/2020 11:1 5 PM CDT COVID-19 04/04/2020 04/04/2020 05/04/2020 8:09 PM CDT documented as of this encounter Care Teams Woodworking Craftsman Relationship Specialty Start Date End Date Anitha Jacob DO [address] [place] [address] PCP - General Family Practice 05/20/18 documented as of this encounter
--- OUTSIDE RECORDS SUMMARY | 2025-03-13 13:21 | XMS_ITS | Encounter Summary ---
Author Organization [facility] Address [address] [place] [address] Care Team Providers Care Order Picker Name Role Phone Anitha Jacob DO Primary Care Provider [phone] Encounter Details Date Type Department Care Team (Late st Contact Info) Description 06/27/2019 Lab Requisition [facility]do [place] [address] [place] [address] Anitha Jacob DO [address] [place] [address] Encounter for screening for malignant neoplasm of colon Social History Tobacco Use Types Packs/Day Years Used Date Smoking Tobacco: Former Cigarettes 1 20 0 12/05/1979 - 12/05/1999 Smokeless Tobacco: Never Alcohol Use Standard Drinks/Week Comments No 0 (1 standard drink = 0.6 oz pur e alcohol) Sex and Gender Information Value Date Recorded Sex Assigned at Not on file Legal Sex Male 6:27 AM 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 Gender Identity Not on file Sexual Orientation Not on file documented as of this encounter Plan of Treatment Not on file documented as of this encounter Procedures Procedure Name Priority Date/Time Associated Diagnosis Comments OCCULT BLOOD IMMUNOASSAY, COLORECTAL SCREEN Routine 06/27/2019 4:13 PM 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 Encounter for screening for malignant neoplasm of colon documented in this encounter Results * OCCULT BLOOD IMMUNOASSAY, COLORECTAL SCREEN (06/27/2019 4:13 PM 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) OCCULT BLOOD, STOOL Negative Negative 06/28/2019 10:10 AM 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 [facility]DONALDO [facility]IL[facility] Stool STOOL SPECIMEN / Unknown 06/27/2019 4:13 PM 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 06/27/2019 4:14 PM 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 Anitha Jacob DO BODY FLUIDS AND STOOLS Kelsie beltran Result [facility]ALDO [facility]IL[facility]# [id number] [address] [place] [address] documented in this encounter Visit Diagnoses Diagnosis Encounter for screening for malignant neoplasm of colon Special screening for malignant neoplasms, colon documented in this encounter Additional Health Concerns Infection Onset Date Last Indicated Resolved Time R/O COVID-19 04/04/2020 04/04/2020 04/05/2020 11:1 5 PM CDT COVID-19 04/04/2020 04/04/2020 05/04/2020 8:09 PM CDT documented as of this encounter Care Teams Order Picker Relationship Specialty Start Date End Date Anitha Jacob DO [address] [place] [address] PCP - General Family Practice 05/20/18 documented as of this encounter
--- OUTSIDE RECORDS SUMMARY | 2025-03-13 13:21 | XMS_ITS | Clinical Summary ---
Author Organization [facility] Facility Address [address] [place] [address] Care Team Providers Care Machinist Linotype Name Role Phone Anitha Jacob Primary Care Provider [phone] Allergies No known active allergies Medications NIFEdipine XL (PROCARDIA XL) 60 MG 24 hr tablet Take 120 mg by mouth daily 12/13/2019 Active metoprolol succinate XL (TOPROL-XL) 100 MG 24 hr tablet Take 1/2 tablet by mouth daily 08/24/2019 Active isosorbide mononitrate (IMDUR) 120 MG 24 hr tablet Take 120 mg by mouth 1 (one) time each day 12/14/2019 Active insulin glargine (Lantus SoloStar) 100 UNIT/ML injection INJECT 70 UNITS UNDER THE SKIN EVERY NIGHT AT BEDTIME. 03/19/2020 Active insulin aspart (NovoLOG FLEXPEN) 100 UNIT/ML injection INJECT 16 UNITS UNDER THE SKIN EVERY DAY PER SLIDING SCALE 12/07/2019 Active ergocalciferol (VITAMIN D2) 1.25 MG (65689 UT) capsule Take 1 cap weekly 08/24/2019 Active Active Problems Problem Noted Date Diagnosed Date Chronic kidney disease, stage 2 (mild) 0 Immunizations Immunization Administration Dates Next Due Hepatitis A 07/22/1997,08/29/1996 Hepatitis B 10/14/1996,05/05/1996,03/29/1996 Influenza Split High Dose Pr eservative Free IM 2019,05/20/2018 Pneumococcal Polysaccharide 2019 Td 10/13/2000,01/20/1995 Family History Medical History Relation Comments Hypertension Father Hypertension Mother Relation Status Comments Father Mother Social History Tobacco Use Types Packs/Day Years Used Date Smoking Tobacco: Former Cigarettes Q uit: 12/05/1999 Smokeless Tobacco: Never Alcohol Use Standard Drinks/Week Comments Not Currently 0 (1 standard drink = 0.6 oz pur e alcohol) Sex and Gender Information Value Date Recorded Sex Assigned at Not on file Legal Sex Male 1:12 PM EDT Gender Identity Not on file Sexual Orientation Not on file Last Filed Vital Signs Vital Sign Reading Time Taken Comments Blood Pressure 136/82 04/17/2020 12:53 PM CDT Pulse 60 04/17/2020 12:53 PM CDT Temperature 36.2 C (97.2 F) 04/17/2020 12:53 PM CDT Respiratory Rate - - Oxygen Saturation - - Inhaled Oxygen Concentration - - Weight 105 kg (231 lb 3.2 oz) 04/17/2020 12:53 P M CDT Height 180.3 cm (5' 11 ) 04/17/2020 12:53 PM CDT Body Mass Index 32.25 04/17/2020 12:53 PM CDT Plan of Treatment Health Maintenance Due Date Last Done Comments Diabetes: Hemoglobin A1C 03/27/2020 08/24/2019 Diabetes: Ophthalmology Exam 03/27/2020 Diabetes: Pedal Pulse Checked 03/27/2020 Diabetes: Sensory Foot Exam 03/27/2020 Diabetes: Visual Foot Exam 03/27/2020 Pneumococcal Vaccine: 50+ Years (2 of 2 - PCV) 2020 2019 Influenza Vaccine (#1) 2025 , 05/20/2018 Hepatitis B Vaccine Aged Out 10/14/1996, 05/05/1996, 03/29/1996 No longer eligible based on patient's age to complete this topic Pneumococcal Vaccine: Peds ( 0 to 5 Years) and At-Risk Patients (6 to 49 Years) Discontinued 2019 Procedures Procedure Name Priority Date/Time Associated Diagnosis Comments HEMOGLOBIN A1C (EXTERNAL RESULT ENTRY) Routine 08/24/2019 1:39 PM HOLTER SCANNING TECHNICIAN from Last 3 Months or Most Recently Relevant to Health Maintenance Results * Hemoglobin A1C (08/24/2019 1:39 PM HOLTER SCANNING TECHNICIAN) Hemoglobin A1C 8.3 Blood specimen (specimen) Venous blood / Unknown 08/24/2019 1:39 PM HOLTER SCANNING TECHNICIAN Narrative Melonie Fulotn MA - 03/27/2020 10:02 AM CDT [facility] Donaldo Flores [place] [address] [facility] [address] Skyla Mcknight SURGICAL TERRITORY MANAGER LAB BLOOD ORDERABLES Final Resu lt from Last 3 Months or Most Recently Relevant to Health Maintenance Insurance Medicare [facility] Care Teams Machinist Linotype Relationship Specialty Start Date End Date Anitha Jacob DO PCP - General Family Medicine 03/27/20
--- OUTSIDE RECORDS SUMMARY | 2025-03-13 13:21 | XMS_ITS | Encounter Summary ---
Author Organization [facility] Address [address] [place] [address] Phone Care Team Providers Care Loading Machine Adjuster Name Role Phone Anitha Jacob DO Primary Care Provider [phone] Encounter Details Date Type Department Care Team (Late st Contact Info) Description 02/06/2020 Orders Only [facility] [address] [place] [address] Chronic kidney disease, stage 3 (moderate) ([facility]) Social History Tobacco Use Types Packs/Day Years Used Date Smoking Tobacco: Never Assessed Sex and Gender Information Value Date Recorded Sex Assigned at Not on file Legal Sex Male 1:12 PM EDT Gender Identity Not on file Sexual Orientation Not on file documented as of this encounter Plan of Treatment Not on file documented as of this encounter Visit Diagnoses Diagnosis Chronic kidney disease, stage 3 (moderate) documented in this encounter Care Teams Loading Machine Adjuster Relationship Specialty Start Date End Date Anitha Jacob DO PCP - General Family Medicine 03/27/20 documented as of this encounter
--- OUTSIDE RECORDS SUMMARY | 2025-03-13 13:21 | XMS_ITS | Encounter Summary ---
Author Organization [facility] Address [address] [place] [address] Care Team Providers Care Commercial Sewing Instructor Name Role Phone Anitha Loera DO Primary Care Provider [phone] Reason for Visit * Reason Comments Needs Orders Written Patient Communication Encounter Details Date Type Department Care Team (Late st Contact Info) Description 03/01/2025 Telephone [facility] [place] [address] [place] [address] Anitha Loera DO [address] [place] [address] Needs Orders Written; Patient Communication Social History Tobacco Use Types Packs/Day Years [...] on file Legal Sex Male 2:58 PM REVENUE INSPECTOR Gender Identity Not on file Sexual Orientation Not on file documented as of this encounter Miscellaneous Notes * Addendum Note - Anitha Loera DO - 03/07/2025 11:01 AM CDTAddended by: ANITHA LOERA on: 03/07/2025 11:01 AM Modules accepted: Orders * Telephone Encounter - Karen Alexander LPN - 03/07/2025 10:07 AM CDT 03/07/2025 10:07 AM I spoke with pt and he is ok with oral valium and is asking for the strongest dose possible. Karen EVANS * Telephone Encounter - Anitha Loera DO - 03/03/2025 4:24 PM CDT All I can give him for sedation for [place] is an oral valium that he takes prior to exam. I can't give him IV sedation because they don't have any doctors there in radiology who will be there for the test. If this won't work then we can use open MRI in [place]. * Telephone Encounter - Jewel Marcelino - 03/02/2025 2:09 PM CDT Copied from [facility] #[id number]. Topic: CPA Information Request >> Mar 02, 2025 2:07 PM Jewel Dumont wrote: Caller is returning phone call from clinic. Caller Name: Alexx Garcia Patient/Caregiver Callback Number: [phone] (mobile) Clinic Left Note In Chart Is there a note from the clinic requesting the caller be transferred when they call back? No Are the credentials of the caregiver who called the patient lead php developer? Yes Call Notes: Communicated information that is documented in the note. Caller wants a call back from clinic. Patient states that the only way he could do one in [place] is if he is heavily sedated due to his claustrophobia. He is requesting a call back to discuss further. * Telephone Encounter - Kika Fulton LPN - 03/02/2025 12:34 PM CDT Pt is wanting an open MRI due to claustrophobia. No open MRI in [place]. Attempted to call pt to discuss. Unable to reach. Pt will have to go to [place] for open MRI. Kika Fulton LPN, 03/02/2025 12:34 PM * Telephone Encounter - Ora Negro - 03/01/2025 2:30 PM CDT Copied from [facility] #[id number]. Topic: CPA Information Request - Order or Referral Request >> Mar 01, 2025 2:29 PM Ora Goode wrote: Caller Name: Alexx Garcia Patient/Caregiver Callback Number: [phone] (mobile) Call Notes: MRI OF HIP- says this was supposed to get sent too [place] please call when done. Caller is requesting: Referral Status Update Patient Access Instructions 1. Provide referral status information. 2. Select Resolve Reason and Click Close CRM. documented in this encounter Plan of Treatment Upcoming Encounters Date Type Department Care Team (Late st Contact Info) Description 08/25/2025 1:20 PM REVENUE INSPECTOR Office Visit [facility] [address] [place] [address] Savannah Steinberg FNP [address] [place] [id number] documented as of this encounter Visit Diagnoses Diagnosis Claustrophobia- Primary Other isolated or specific phobias documented in this encounter Care Teams Commercial Sewing Instructor Relationship Specialty Start Date End Date Anitha Loera DO [address] [place] [address] PCP - General Family Practice 05/20/18 documented as of this encounter
--- NOTE | 2025-03-13 13:23 | XR_ITS ---
WS: [id number] Portable AP upright chest, Clinical Data: chest pain Comparison: Portable chest, 10/21/2019 Findings: No nodules, masses or effusions are seen. The heart is normal. The pulmonary vascularity is not increased. No pneumonia or pneumothorax is seen. The aortic arch and descending thoracic aorta show minimal calcification and tortuosity. XR/XR chest 1V portable [id number] Impression: Atherosclerosis.
--- NOTE | 2025-03-13 13:27 | ECG_ITS ---
[employer] [facility] Test Date: 2025-03-13 Pat Name: Alexx Garcia Department: Room: Gender: Male [place] Artist: : 1945 Requested By: Josh Sheehan Order Number: [id number] Figueroa MD: Michael Cole M.D. Measurements Intervals [place] Rate: 65 P: 0 OK: 0 QRS: -67 QRSD: 94 T: 70 QT: 408 QTc: 425 Interpretive Statements ATRIAL FIBRILLATION LOW QRS VOLTAGE IN PRECORDIAL LEADS [QRS DEFLECTION < 1.0 mV IN CHEST LEADS] LEFT ANTERIOR FASCICULAR BLOCK [QRS AXIS <= -45, QR IN I, RS IN II] POSSIBLE ANTERIOR MYOCARDIAL INFARCTION , PROBABLY OLD [30 ms Q WAVE IN V3/V4, OR R < 0.2 mV IN V4] INFERIOR MYOCARDIAL INFARCTION , PROBABLY OLD [40+ ms Q WAVE AND/OR ST/T ABNORMALITY IN II/aVF] Compared to ECG 10/20/2019 23:56:47 Low QRS voltage now present Sinus rhythm no longer present Myocardial infarct finding still present Electronically Signed On 03-15-2025 20:26:56 CDT by Michael Cole M.D. [email or web address]
[2025-03-13 13:57] LABS: Hematocrit 43.4 % (37-53); Hemoglobin 14.50 g/dL (11.27-16.99); Mean Corpuscular HGB Conc 33.4 g/dL (30-55); Mean Corpuscular Hemoglobin 29.1 pg (27-33); Mean Corpuscular Volume 87.1 fl (82-101); Nucleated Red Blood Cells % 0 %; Platelet Count 198 10^3/cmm (157-399); Red Blood Count 4.98 10^6/uL (3.85-5.65); White Blood Count 8.61 10^3/uL (3.29-11.43)
[2025-03-13 14:15] LABS: Troponin(5th) Baseline 24 ng/L (0-15)
[2025-03-13 14:23] LABS: Alanine Aminotransferase 18 U/L (0-41); Albumin Level 4.4 g/dL (3.5-5.2); Alkaline Phosphatase 69 U/L (40-130); Anion Gap 12.9 (5-19); Aspartate Amino Transferase 14 U/L (0-40); Blood Urea Nitrogen 29 mg/dL (8-23); Calcium 9.0 mg/dL (8.5-10.5); Carbon Dioxide 29 mmol/L (22-29); Chloride 101 mmol/L (98-107); Creatinine Clr Calc Pharmacy 53.4565; Globulin 2.3 g/dL (1.3-4.6); Glucose 129 mg/dL (65-115); Osmolality Calculated 296 mOsm/kg (285-295); Potassium 3.9 mmol/L (3.5-5.1); Sodium 139 mmol/L (136-145); Total Protein 6.7 g/dL (6.6-8.7)
--- NOTE | 2025-03-13 15:16 | W.ED.ARRPALP ---
HPI - Arrhythmia/Palpitations General: Chief Complaint: Arrhythmia/Palpitations Stated Complaint: chest pain A fib Time Seen by Provider: 03/13/25 13:28 History of Present Illness: 79-year-old man with a history of chronic kidney disease, hypertension, aortic valve stenosis, thoracic aortic aneurysm, hypertension, hyperlipidemia and atrial fibrillation who presents to the emergency room with palpitations. He says he has had some malaise and shortness of breath but primarily he has been very lightheaded. Particular with exertion. Also short of breath with exertion. He says he was diagnosed with A-fib many years ago and was cardioverted and since then has not been on any blood thinners and has not been in atrial fibrillation. He follows with cardiology with Dr. Sanchez. Said some mild cough. No chest pain Related Data Home Medications ?Medication ?Instructions ?Recorded ?Confirmed insulin aspart U-100 100 unit/mL 5 unit SUBCUT TID 09/26/19 01/01/25 (3 mL) subcutaneous pen (Novolog FlexPen U-100 Insulin aspart) insulin glargine 100 unit/mL 100 unit SUBCUT DAILY 09/26/19 01/01/25 subcutaneous solution (Lantus U-100 Insulin) isosorbide mononitrate 60 mg 120 mg PO DAILY 09/26/19 01/01/25 tablet,extended release 24 hr metoprolol succinate 50 mg 25 mg PO DAILY 04/23/21 01/01/25 tablet,extended release 24 hr aspirin 325 mg tablet 325 mg PO DAILY 10/09/22 01/01/25 budesonide-formoterol HFA 80 2 puff inhalation BID PRN 12/18/22 01/01/25 mcg-4.5 mcg/actuation aerosol Shortness Of Breath Or Wheezing inhaler (Symbicort) fluticasone propionate 50 1 spray intranasal BID PRN 12/18/22 01/01/25 mcg/actuation nasal allergies spray,suspension (Flonase Allergy Relief) nifedipine 90 mg tablet,extended 180 mg PO DAILY 12/18/22 01/01/25 release albuterol sulfate 90 mcg/actuation 2 puff inhalation Q6H PRN 08/10/23 01/01/25 aerosol inhaler Shortness Of Breath Previous Rx's ?Medication ?Instructions ?Recorded potassium chloride 8 mEq 8 meq PO DAILY 30 days #30 caps 09/17/21 capsule,extended release losartan 25 mg tablet 25 mg PO DAILY #90 tabs 08/02/24 hydrocodone 5 mg-acetaminophen 325 1 tab PO Q6H #30 tabs 09/21/24 mg tablet Allergies Allergy/AdvReac Type Severity Reaction Status Date / Time No Known Allergies Allergy Verified 03/13/25 13:31 Review of Systems Narrative: Constitutional symptoms: Negative except as documented in HPI. Skin symptoms: Negative except as documented in HPI. Eye symptoms: Negative except as documented in HPI. ENMT symptoms: Negative except as documented in HPI. Respiratory symptoms: Negative except as documented in HPI. Cardiovascular symptoms: Negative except as documented in HPI. Gastrointestinal symptoms: Negative except as documented in HPI. Genitourinary symptoms: Negative except as documented in HPI. Musculoskeletal symptoms: Negative except as documented in HPI. Neurologic symptoms: Negative except as documented in HPI. Psychiatric symptoms: Negative except as documented in HPI. Endocrine symptoms: Negative except as documented in HPI. 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 Abnormal cardiovascular stress test Thoracic aortic aneurysm (TAA) Hypertension Hyperlipidemia Surgical History (Updated 09/29/24 @ 13:44 by Miguel Garcia MD) Hx of appendectomy History of shoulder surgery Family History Father CAD (coronary artery disease) Family/Other Cancer Mother Dementia Grandmother Diabetes Other Family history of premature coronary artery disease Hyperlipidemia Hypertension Denies family history of Clotting disorder Chronic kidney disease (CKD) Suicide Anesthesia complication Bleeding disorder Lung disease Stroke Social History Smoking and tobacco/nicotine status: never used tobacco/nicotine Quit status (tobacco/nicotine): has quit using Year quit tobacco: 1999 - 2PPD x 30 Years Alcohol intake: never Substance/Drug Use: never Lives independently: Yes Household members: none Marital status: / Current occupational status: retired Do you think of yourself as: Straight/Heterosexual Current gender identity: Male Physical Exam Narrative: EXAM NARRATIVE: General: Alert, no acute distress. Skin: Warm, dry. Head: Normocephalic, atraumatic. Neck: Supple, trachea midline. Eye: Extraocular movements are intact. Ears, nose, mouth and throat: mucosa moist. Cardiovascular: Irregularly irregular, Normal peripheral perfusion. Respiratory: Lungs are clear to auscultation, respirations are non-labored, breath sounds are equal, Symmetrical chest wall expansion. Gastrointestinal: Soft, Nontender, Non distended Musculoskeletal: Normal ROM, no deformity. Neurological: Alert and oriented, No focal neurological deficit observed. Psychiatric: Cooperative, appropriate mood & affect. Course Vital Signs: Vital signs: Vital Signs Temperature 98.1 F 03/13/25 13:22 Pulse Rate 82 03/13/25 18:30 Blood Pressure 123/74 03/13/25 18:30 Pulse Oximetry 92 03/13/25 18:30 Oxygen Delivery Me thod Room Air 03/13/25 18:30 MDM - Arrhythmia/Palpitations Medical Decision Making Medical decision making: Differential diagnosis including but not limited to and based on the above HPI, review of systems and physical exam: for patient with palpitations: atrial fibrillation with rapid ventricular response. ventricular tachycardia. sinus tachycardia. PVCs. also concern for underlying issues causing tachycardia. Infection, electrolyte abnormalities and thyroid issues. Orders placed to evaluate differential diagnosis based on the above differential, HPI and physical exam EKG: Time 1327. Rate 65. Atrial fibrillation with controlled rate, No ST-T changes, no ectopy, LAFB. This was reviewed and interpreted by myself the ER physician at 1335 Chest x-ray: No acute process. No infiltrate. No pneumothorax. This was reviewed and interpreted by myself the emergency room physician. I also reviewed the radiology report. Lab Review: Laboratory results were reviewed and interpreted by myself the emergency room physician. No leukocytosis. No anemia. Some slight renal insufficiency with a BUN and creatinine of 29 and 1.4. The patient says he feels dehydrated. Serial cardiac markers are not elevated I reviewed the patient's medical record. 79-year-old man with a history of chronic kidney disease, hypertension, aortic valve stenosis, thoracic aortic aneurysm, hypertension, hyperlipidemia and atrial fibrillation. Last echo was over 2 years ago. He had an EF of 70% with some diastolic dysfunction. Reexamination: Patient remained stable. No increased work of breathing. No altered mental status. No focal motor deficits. Heart rate easily jumps into [id number] range just with mild exertion of talking. He tells me he feels dry. His creatinine is up. May give a small test bolus of fluids to see how this does. proBNP may just be elevated secondary to A-fib. Theoretically he is having tachycardia when he walks or exerts himself which is causing the exertional dyspnea and dizziness. Consultation: I spoke with Dr. Sequeira who is on-call for the cardiology service who agrees that admission and an echocardiogram are appropriate. If needed he will consult. Possibly even consider cardioversion. Consultation: I spoke with Dr. Pugh who is on-call for the hospital service who agrees to admission. Assessment and plan: Atrial fibrillation Dizziness Dehydration Acute on chronic renal insufficiency ?500 mL liter normal saline bolus here in the emergency room. -I discussed the patient with the hospitalist on-call who is admitting the patient. - Discussed findings and plan with patient. Answered any questions. - All laboratory values were reviewed and interpreted personally by myself, the ER physician - All imaging was reviewed and interpreted personally by myself, the ER physician. - Evaluation and treatment of this problem were appropriate in the emergency setting Lab Data 03/13/25 13:48 03/13/25 13:48 Radiology Impressions Chest X-Ray 03/13/25 13:23 Impression: Atherosclerosis. Laboratory Results WBC 8.61 10^3/uL (3.29-11.43) 03/13/25 13:48 RBC 4.98 10^6/uL (3.85-5.65) 03/13/25 13:48 Hgb 14.50 g/dL (11.27-16.99) 03/13/25 13:48 Hct 43.4 % (37-53) 03/13/25 13:48 MCV 87.1 fl (82-101) 03/13/25 13:48 MCH 29.1 pg (27-33) 03/13/25 13:48 MCHC 33.4 g/dL (30-55) 03/13/25 13:48 RDW 13.3 % (12.1-15.1) 03/13/25 13:48 Plt Count 198 10^3/cmm (157-399) 03/13/25 13:48 MPV 10.2 fL (7.4-10.4) 03/13/25 13:48 Neut % (Auto) 55.4 % 03/13/25 13:48 Lymph % (Auto) 35.9 % 03/13/25 13:48 [place] % (Auto) 7.1 % 03/13/25 13:48 Eos % (Auto) 1.2 % 03/13/25 13:48 Baso % (Auto) 0.2 % 03/13/25 13:48 Neut # (Auto) 4.77 10^3/uL (1.8-7.7) 03/13/25 13:48 Lymph # (Auto) 3.1 10^3/uL (0.8-4.8) 03/13/25 13:48 [place] # (Auto) 0.6 10^3/uL (0.2-0.9) 03/13/25 13:48 Eos # (Auto) 0.1 10^3/uL (0.0-0.8) 03/13/25 13:48 Baso # (Auto) 0.0 10^3/uL (0.0-0.1) 03/13/25 13:48 Nucleated RBC % (auto) 0 % 03/13/25 13:48 Nucleated RBCs # 0.0 /100WBC 03/13/25 13:48 Sodium 139 mmol/L (136-145) 03/13/25 13:48 Potassium 3.9 mmol/L (3.5-5.1) 03/13/25 13:48 Chloride 101 mmol/L (98-107) 03/13/25 13:48 Carbon Dioxide 29 mmol/L (22-29) 03/13/25 13:48 Anion Gap 12.9 (5-19) 03/13/25 13:48 BUN 29 mg/dL (8-23) H 03/13/25 13:48 Creatinine 1.4 mg/dL (0.7-1.2) H 03/13/25 13:48 GFR Calculation Not Reportable 03/13/25 13:48 Glucose 129 mg/dL (65-115) H 03/13/25 13:48 Calculated Osmolality 296 mOsm/kg (285-295) H 03/13/25 13:48 Calcium 9.0 mg/dL (8.5-10.5) 03/13/25 13:48 Magnesium 2.2 mg/dL (1.7-2.3) 03/13/25 13:48 Total Bilirubin 0.6 mg/dL (0.15-1.2) 03/13/25 13:48 AST 14 U/L (0-40) 03/13/25 13:48 ALT 18 U/L (0-41) 03/13/25 13:48 Alkaline Phosphatase 69 U/L (40-130) 03/13/25 13:48 Troponin T Baseline 24 ng/L (0-15) H 03/13/25 13:48 Troponin T 120 Minute 21.44 ng/L (0-15) H 03/13/25 15:48 Delta Troponin T -2.56 ABS# (0-10) L 03/13/25 15:48 NT-Pro-B Natriuret Pep 4284 pg/mL (0-450) H 03/13/25 13:48 Total Protein 6.7 g/dL (6.6-8.7) 03/13/25 13:48 Albumin 4.4 g/dL (3.5-5.2) 03/13/25 13:48 Globulin 2.3 g/dL (1.3-4.6) 03/13/25 13:48 TSH 3.13 uIU/mL (0.27-4.20) 03/13/25 13:48 Urine Color Dark yellow (Yellow) A 03/13/25 18:12 Urine Appearance Clear (CLEAR) 03/13/25 18:12 Urine pH 5.0 (5-7) 03/13/25 18:12 Ur Specific [place] 1.030 (1.005-1.030) 03/13/25 18:12 Urine Protein 1+ (Negative) A 03/13/25 18:12 Urine Glucose (UA) Negative (Normal) 03/13/25 18:12 Urine Ketones Trace (Negative) 03/13/25 18:12 Urine Blood Negative (Negative) 03/13/25 18:12 Urine Nitrate Negative (Negative) 03/13/25 18:12 Urine Bilirubin 1+ (Negative) H 03/13/25 18:12 Urine Urobilinogen 1.0 mg/dL (Negative) 03/13/25 18:12 Ur Leukocyte Esterase Trace (Negative) A 03/13/25 18:12 Urine RBC 0-2 /hpf (0-2) 03/13/25 18:12 Urine WBC 6-10 /hpf (0-5) 03/13/25 18:12 Ur Squamous Epith Cells 0-5 /hpf (0-5) 03/13/25 18:12 Amorphous Sediment Not Reportable 03/13/25 18:12 Urine Bacteria None seen /hpf (NONE) 03/13/25 18:12 Hyaline Casts 33.93 /lpf 03/13/25 18:12 Fine Granular Casts 0-4 /lpf H 03/13/25 18:12 Urine Mucus 2+ /hpf 03/13/25 18:12 All radiology interpretation(s) finalized by discharge Discharge Plan Discharge Patient Disposition: Admitted As Inpatient Admit Provider: Jackie Pugh Clinical Impression: Atrial fibrillation, Dehydration Condition: Stable Coding Level of Care Code ED Honing Machine Operator Semiautomatic for Lyric Vargas
--- NOTE | 2025-03-13 15:23 | ECG_ITS ---
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 Measurements Intervals [place] Rate: 64 P: 0 WI: 0 QRS: -87 QRSD: 97 T: 75 QT: 409 QTc: 422 Interpretive Statements ATRIAL FIBRILLATION LOW QRS VOLTAGE IN PRECORDIAL LEADS [QRS DEFLECTION < 1.0 mV IN CHEST LEADS] LEFT ANTERIOR FASCICULAR BLOCK [QRS AXIS <= -45, QR IN I, RS IN II] POSSIBLE ANTERIOR MYOCARDIAL INFARCTION , PROBABLY OLD [30 ms Q WAVE IN V3/V4, OR R < 0.2 mV IN V4] Compared to ECG 03/13/2025 13:27:06 No significant change Electronically Signed On 03-15-2025 23:00:16 CDT by Michael Cole M.D. [email or web address] [id number]
[2025-03-13 15:54] LABS: Magnesium 2.2 mg/dL (1.7-2.3); NT Pro B Type Natriuretic Pept 4284 pg/mL (0-450); Thyroid Stimulating Hormone 3.13 uIU/mL (0.27-4.20)
[2025-03-13 16:25] LABS: Troponin 5 2HR 21.44 ng/L (0-15)
[2025-03-13 16:26] LABS: Troponin 5 2HR Delta -2.56 ABS# (0-10)
[2025-03-13 18:30] LABS: Glucose Urine UA Negative (Normal); Nitrate Urine Negative (Negative); Specific Gravity, Urine 1.030 (1.005-1.030)
[2025-03-13 19:03] LABS: UA Slide Review UA Slide Review Perf
--- NOTE | 2025-03-13 19:55 | ECG_ITS ---
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 Measurements Intervals [place] Rate: 81 P: 0 MI: 0 QRS: -72 QRSD: 98 T: 70 QT: 400 QTc: 466 Interpretive Statements ATRIAL FIBRILLATION LEFT AXIS DEVIATION [QRS AXIS < -30] LOW QRS VOLTAGE IN PRECORDIAL LEADS [QRS DEFLECTION < 1.0 mV IN CHEST LEADS] POSSIBLE ANTERIOR MYOCARDIAL INFARCTION , PROBABLY OLD [30 ms Q WAVE IN V3/V4, OR R < 0.2 mV IN V4] Compared to ECG 03/13/2025 15:18:48 No significant change Electronically Signed On 03-15-2025 23:14:21 CDT by Michael Cole M.D. [email or web address] [id number]
[2025-03-13 20:10] LABS: Troponin 5 6HR 18.12 ng/L (0-15)
[2025-03-13 20:12] LABS: Troponin 5 6HR Delta -5.88 ng/L (0-12)
--- NOTE | 2025-03-13 21:47 | USCV_ITS ---
Alexx Garcia Age: 79 Gender: M : 1945 Exam Date: 03/13/2025 23:15 Ordering Phys: Jackie Pugh MD Technologist: SAURABH Exam Location: [facility] [place] Indication: Atrial fibrillation not in RVR, chronic kidney dz, HTN, history of thoracic aneurys, HL, SOB BP: 130 / 73 HR: 78 Rhythm: Atrial fibrillation Technical Quality: Adequate MEASUREMENTS (Male / Female) Normal Values 2D ECHO LV Diastolic Diameter PLAX 3.7 cm 4.2 - 5.9 / 3.9 - 5.3 cm IVS Diastolic Thickness 1.3 cm 0.6 - 1.0 / 0.6 - 0.9 cm IVS Systolic Thickness 2.0 cm LVPW Diastolic Thickness 1.3 cm 0.6 - 1.0 / 0.6 - 0.9 cm LVPW Systolic Thickness 1.9 cm LVOT Diameter 2.1 cm LV Ejection Fraction 2D Teich 61.1 % LV Ejection Fraction MOD 4C 57.0 % LV Ejection Fraction MOD 2C 45.8 % LV Ejection Fraction 2C AL 46.8 % LA Diameter 5.0 cm Aorta at Sinotubular Diameter 3.6 cm IVC Diameter 1.5 cm M-MODE LA Ao Ratio MM 1.5 AV Cusp Separation MM 1.7 cm DOPPLER AV Peak Velocity 177.0 cm/s LVOT Peak Velocity 128.0 cm/s AV Area Cont Eq vti 3.0 cm squared AV Area Cont Eq pk 2.6 cm squared MV Peak Velocity 137.0 cm/s MV Area PHT 3.5 cm squared Mitral E to A Ratio 0.0 TV Peak E Velocity 79.0 cm/s PV Peak Velocity 89.0 cm/s FINDINGS Left Ventricle Normal left ventricular size, systolic function and wall thickness, with no regional wall motion abnormalities. Left ventricular ejection fraction is estimated at 60 %. In the presence of atrial fibrillation diastolic function cannot be assesed accurately. Right Ventricle The right ventricle is normal in size and function. Right Atrium The right atrium is normal in size. Left Atrium Moderately increased left atrial size. Mitral Valve Structurally normal mitral valve without significant stenosis or prolapse. There is no mitral regurgitation. Aortic Valve Moderate aortic valve calcification. No aortic valve stenosis. Mild aortic valve regurgitation. Tricuspid Valve Mild tricuspid valve regurgitation. Pulmonic Valve Structurally normal pulmonic valve without significant stenosis. There is no pulmonic regurgitation. Pericardium Normal pericardium without effusion. Aorta Normal ascending aorta dimension. IVC The inferior vena cava appears normal. CONCLUSIONS Normal left ventricular size, systolic function and wall thickness, with no regional wall motion abnormalities. Left ventricular ejection fraction is estimated at 60 %. In the presence of atrial fibrillation diastolic function cannot be assesed accurately. Moderate aortic valve calcification. No aortic valve stenosis. Mild aortic valve regurgitation. There is no pericardial effusion. Right atrial pressure is around 5 mm of mercury. Nnamdi Claros MD (Electronically Signed) Final Date: 14 March 2025 15:00 S
[2025-03-13] MEDS: heparin drip 25,000 UNIT/500 ML PREMIX 31 UNIT IV (22:05)
[2025-03-13] MEDS: heparin 5,000 unit/mL INJ 1 mL IVP (22:10)
--- NOTE | 2025-03-13 23:41 | PM.HP ---
Providers/Chief Complaint Admitting Physician: Jackie Pugh MD--- patient seen and evaluated before 12 midnight Primary Care Provider: Anitha Jacob DO Chief Complaint: chest pain A fib History of Present Illness Alexx Garcia is a 79 year old male with medical history significant for atrial fibrillation with RVR when he was in his 30s essentially 36 years old. At that time he was not placed on any anticoagulant was treated medically with beta-mir and that resolved and ever since then patient had not had any problem with any atrial fibrillation. Yesterday patient started having some symptoms of palpitation and very uncomfortable feeling into his throat. Patient came to the emergency room to be properly evaluated. Patient was found to be in atrial fibrillation with controlled rates. Dr. Sequeira was consulted by the emergency room doctor. I have seen and evaluated patient I went ahead and initiated on heparin drip and ordered an echocardiogram. Patient echocardiogram done in 2022 showed an EF of 70, showing hyperdynamic left ventricle Patient appeared dry with BUN and creatinine ratio greater than 20-1 and when patient had slight activity the heart rate goes up showing classic dehydration or significant volume contraction. Patient received 500 cc of normal saline in the emergency room as a bolus but cautious because patient BMP was noted to be 5000 Patient is not in overt heart failure no shortness of breath chest x-ray is essentially clear but with atherosclerosis as a radiographic sign Review of Systems Narrative: System review upon 10 organ system reviewed was noted to be with cardiovascular system with atrial fibrillation with a controlled rate otherwise unremarkable. Medications/Allergies Home Medications ?Medication ?Instructions ?Recorded ?Confirmed ?Last Taken ?Type insulin aspart U-100 100 unit/mL 5 unit SUBCUT TID 09/26/19 03/13/25 09/20/24 History (3 mL) subcutaneous pen (Novolog FlexPen U-100 Insulin aspart) insulin glargine 100 unit/mL 100 unit SUBCUT DAILY 09/26/19 03/13/25 03/12/25 History subcutaneous solution (Lantus U-100 Insulin) isosorbide mononitrate 60 mg 60 mg PO DAILY@1800 09/26/19 03/13/25 03/12/25 18:00 History tablet,extended release 24 hr metoprolol succinate 50 mg 25 mg PO DAILY@1800 04/23/21 03/13/25 03/12/25 18:00 History tablet,extended release 24 hr aspirin 325 mg tablet 325 mg PO DAILY@1800 10/09/22 03/13/25 03/12/25 18:00 History nifedipine 90 mg tablet,extended 180 mg PO DAILY@1800 12/18/22 03/13/25 03/12/25 18:00 History release albuterol sulfate 90 mcg/actuation 2 puff inhalation Q6H PRN 08/10/23 03/13/25 Unknown History aerosol inhaler Shortness Of Breath losartan 25 mg tablet 25 mg PO DAILY@1800 03/13/25 03/13/25 03/12/25 18:00 History Allergies Allergy/AdvReac Type Severity Reaction Status Date / Time No Known Allergies Allergy Verified 03/13/25 13:31 PFSH Acute PFSH: Medical History Chronic kidney disease (CKD) Accelerated hypertension Lung nodule Melanoma Chest tightness Aortic valve stenosis Agatston coronary artery 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 Abnormal cardiovascular stress test Thoracic aortic aneurysm (TAA) Hypertension Hyperlipidemia Surgical History Hx of appendectomy History of shoulder surgery Family History Father CAD (coronary artery disease) Family/Other Cancer Mother Dementia Grandmother Diabetes Other Family history of premature coronary artery disease Hyperlipidemia Hypertension Denies family history of Clotting disorder Chronic kidney disease (CKD) Suicide Anesthesia complication Bleeding disorder Lung disease Stroke Social History Smoking and tobacco/nicotine status: never used tobacco/nicotine Quit status (tobacco/nicotine): has quit using Year quit tobacco: 1999 - 2PPD x 30 Years Alcohol intake: never Substance/Drug Use: never Lives independently: Yes Household members: none Marital status: / Current occupational status: retired Do you think of yourself as: Straight/Heterosexual Current gender identity: Male Vitals/I&O/Wt Last Vital Signs Temp 98.1 F 03/13/25 13:22 Pulse 68 03/13/25 21:11 Resp 11 L 03/13/25 21:07 BP 130/73 03/13/25 21:11 Pulse Ox 91 03/13/25 21:11 O2 Del Method Room Air 03/13/25 21:14 03/13/25 03/13/25 03/14/25 14:59 22:59 06:59 Intake Total 500 / 500 Balance 500 / 500 Weight last 48 hrs Weight 107.456 kg Weight 104.326 kg Physical Exam Narrative: General the patient looks well lying in bed conversant with the bedside nurse and me at my evaluation. Patient denies any shortness of breath denies any chest pain. Patient noted to be in atrial fibrillation in the 70s HEENT normocephalic atraumatic neck neck is supple cardiovascular heart rate is regular lungs are pretty much clear abdomen soft nontender nondistended unremarkable extremities are intact no edema has good pulses neurology has no focality lab studies lab studies reviewed and noted. Patient had no elevated troponin chemistry were unremarkable except for BUN of 29 and creatinine of 1.4. Data 03/13/25 13:48 03/13/25 13:48 A&P Assessment and plan 1. Dehydration: 2. Atrial fibrillation: 3. Progressive pulmonary hypertension: 4. Dizzy spells: Plan: #1 Dehydration secondary to volume contraction, patient not on diuretics - Dehydration might have also triggered atrial fibrillation as patient slight movement will precipitate higher heart rates from 70s to near 100 Patient received 500 mL bolus of normal saline and then a gentle hydration is ongoing at this time at 75 mL/h #2 Atrial fibrillation with symptomatology in the last 24 hours, low-grade heart rate may not elicit symptom - Initiate heparin drip at this time - Cardiology to follow through to see what needed to happened in case of care delivery cardioversion versus ablation - Patient is getting to be elderly may need anticoagulation prior to discharge I will be placed on antiarrhythmia I will put. Follow cardiology recommendation - Continue home beta-mir #3 History of progressive pulmonary hypertension -Continue beta-mir once medication updated #4 Dizzy spells -Secondary to atrial fibrillation - Cardiology on consult, could be cardioversion versus ablation #5 GI and DVT prophylaxis in place PDMP PDMP Reviewed: Not Reviewed Attestations Medical Necessity Statement*: Patient with atrial fibrillation with symptomatology of dizziness with dizzy spells and palpitation meets criteria for inpatient for further evaluation with anticoagulation and input for cardiology on consult patient needs at least 2 midnights for care Coding Level of Care Code 10774 Diagnoses Dehydration E86.0 Atrial fibrillation I48.91 Progressive pulmonary hypertension I27.20 Dizzy spells R42 Time Spent (min) 60
[2025-03-14] VITALS (7 sets, daily range): BP systolic 118–167; BP diastolic 59–93; PULSE 58–77; RESP 16–21; TEMP 36.6–37; O2SAT 93–98
[2025-03-14 03:52] LABS: Hematocrit 41.6 % (37-53); Hemoglobin 13.50 g/dL (11.27-16.99); Mean Corpuscular HGB Conc 32.5 g/dL (30-55); Mean Corpuscular Hemoglobin 28.5 pg (27-33); Mean Corpuscular Volume 87.9 fl (82-101); Nucleated Red Blood Cells % 0 %; Platelet Count 181 10^3/cmm (157-399); Red Blood Count 4.73 10^6/uL (3.85-5.65); White Blood Count 8.67 10^3/uL (3.29-11.43)
[2025-03-14 04:18] LABS: Partial Thromboplastin Time 167.4 SECONDS (23.9-36.7)
[2025-03-14 04:19] LABS: Alanine Aminotransferase 16 U/L (0-41); Albumin Level 3.9 g/dL (3.5-5.2); Alkaline Phosphatase 62 U/L (40-130); Anion Gap 14.5 (5-19); Aspartate Amino Transferase 14 U/L (0-40); Blood Urea Nitrogen 23 mg/dL (8-23); Calcium 8.5 mg/dL (8.5-10.5); Carbon Dioxide 26 mmol/L (22-29); Chloride 106 mmol/L (98-107); Creatinine Clr Calc Pharmacy 84.3718; Globulin 2.6 g/dL (1.3-4.6); Glucose 100 mg/dL (65-115); Magnesium 2.1 mg/dL (1.7-2.3); Osmolality Calculated 300 mOsm/kg (285-295); Potassium 3.5 mmol/L (3.5-5.1); Sodium 143 mmol/L (136-145); Total Protein 6.5 g/dL (6.6-8.7)
--- NOTE | 2025-03-14 04:46 | PC.NURSE ---
Contacted MD about a ptt of 167.4, MD ordered to hold drip and recheck ptt in 2 hours and recontact the MD.
[2025-03-14 06:28] LABS: Partial Thromboplastin Time 60.7 SECONDS (23.9-36.7)
--- NOTE | 2025-03-14 06:55 | PC.NURSE ---
contacted MD about repeat ptt being 60.7, MD said to restart rate at 25ml an hour
--- NOTE | 2025-03-14 11:28 | P.CONIM_ITS ---
<Statement entered by Rod Sequeira M.D - 03/16/25 12:00> Patient was cared for in conjunction with an advanced practice practitioner.? I reviewed the chart and all pertinent data including imaging, telemetry, and laboratory results.? I discussed the patient in detail with the advanced practice practitioner.? Please see their note for complete consult note, testing results and agreed upon plan of care for the patient. Providers/Reason For Consult 2 Consulting Physician/Specialty*: Dr Sequeira, interventional cardiology Reason for Consult*: troponin elevation, atrial fibrillation Requesting Physician: Dr Brennan Attending Physician: Alex Brennan MD Primary Care Provider: Anitha Jacob DO History of Present Illness History of Present Illness Alexx Garcia is a 79 year old male with remote history of possible atrial fibrillation at age 39, longstanding resistant hypertension, thoracic aortic aneurysm, questionable history of aortic stenosis (echocardiograms in 2019 and 2022 revealing sclerosis not stenosis). He was treated in [place] for hypertensive emergency at age 39, underwent coronary angiogram at that time, reported to be normal. He has had a stress test here in 2019, negative for ischemia. The last imaging for thoracic aortic aneurysm in June of last year showed diameter 4.2cm and stable. Echocardiogram in 2022 had normal LVEF. He has been doing well, staying active with no significant symptoms until Thursday when he noticed palpiations, shortness of breath with exertion, dizziness with position change, and erratic pulse ranging 70 to 110bpm. Blood pressure at home has been well controlled with nifedipine and metoprolol succinate. No weight gain, orthopnea, LE edema. No recent illness. Review of Systems 2 Const: Denies: fever(s), chills, change in weight, fatigue or diaphoresis Eyes: Denies: change in vision ENMT: Denies: epistaxis Card: Reports: palpitations and irregular heart rhythm; Denies: chest pain, edema, syncope, pre-syncope, dyspnea on exertion, orthopnea or leg pain with exertion Resp: Denies: dyspnea, productive cough or wheezing GI: Denies: nausea, vomiting, hematemesis, hematochezia or melena : Denies: hematuria Musc: Denies: extremity swelling Neuro: Reports: vertigo Robert/Lymph: Denies: easy bruising or easy bleeding Medications/Allergies Home Medications ?Medication ?Instructions ?Recorded ?Confirmed ?Last Taken ?Type insulin aspart U-100 100 unit/mL 5 unit SUBCUT TID 03/13/25 09/20/24 History (3 mL) subcutaneous pen (Novolog FlexPen U-100 Insulin aspart) insulin glargine 100 unit/mL 100 unit SUBCUT DAILY 03/13/25 03/12/25 History subcutaneous solution (Lantus U-100 Insulin) isosorbide mononitrate 60 mg 60 mg PO DAILY@1800 09/2503/13/25 03/12/25 18:00 History tablet,extended release 24 hr metoprolol succinate 50 mg 25 mg PO DAILY@1799 1 03/13/25 03/12/25 18:00 History tablet,extended release 24 hr aspirin 325 mg tablet 325 mg PO DAILY@1799 3 03/13/25 03/12/25 18:00 History nifedipine 90 mg tablet,extended 180 mg PO DAILY@179912/18/22 03/13/25 03/12/25 18:00 History release albuterol sulfate 90 mcg/actuation 2 puff inhalation Q 6H PRN 08/10/23 03/13/25 Unknown History aerosol inhaler Shortness Of Breath losartan 25 mg tablet 25 mg PO DAILY@179903/13/25 03/13/25 03/12/25 18:00 History Allergies Allergy/AdvReac Type Severity Reaction Status Date / Time No Known Allergies Allergy Verified 03/13/25 13:31 Current Medications Generic Name Dose Route Start Last Admin Trade Name Johannq PRN Reason Stop Dose Admin Docusate Sodium 100 mg 03/14/25 09:00 03/14/25 08:54 Docusate Sodium 100 Mg Capsule PO 100 mg BID JORGE ALBERTO Administration Heparin Sodium/Sodium Chloride 25,000 unit in 500 mls @ 0 mls/hr 03/13/25 21:45 03/14/25 06:54 Heparin Drip IV 11.63 unit/kg/hr CONT JORGE ALBERTO 25 mls/hr Protocol Titration Per Protocol Insulin Human Lispro 0 unit 03/14/25 08:00 03/14/25 07:37 Insulin Lispro 100 Unit/1 Ml SUBCUT Not Given [facility] Protocol Pantoprazole Sodium 40 mg 03/14/25 09:00 03/14/25 08:[address] 40 Mg Tablet PO 40 mg DAILY JORGE ALBERTO Administration PFSH Acute 2 PFSH: Medical History Chronic kidney disease (CKD) Accelerated hypertension Lung nodule Melanoma Chest tightness Aortic valve stenosis [place] coronary artery 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 Abnormal cardiovascular stress test Thoracic aortic aneurysm (TAA) Hypertension Hyperlipidemia Surgical History Hx of appendectomy History of shoulder surgery Family History Father CAD (coronary artery disease) Family/Other Cancer Mother Dementia Grandmother Diabetes Other Family history of premature coronary artery disease Hyperlipidemia Hypertension Denies family history of Clotting disorder Chronic kidney disease (CKD) Suicide Anesthesia complication Bleeding disorder Lung disease Stroke Social History Smoking and tobacco/nicotine status: never used tobacco/nicotine Quit status (tobacco/nicotine): has quit using Year quit tobacco: 1999 - PD x 30 Years Alcohol intake: never Substance/Drug Use: never Lives independently: Yes Household members: none Marital status: / Current occupational status: retired Do you think of yourself as: Straight/Heterosexual Current gender identity: Male Vitals/I&O/Wt Last Vital Signs Temp 98.0 F 03/14/25 07:59 Pulse 72 03/14/25 08:08 Resp 16 03/14/25 07:59 BP 145/93 03/14/25 08:08 Pulse Ox 97 03/14/25 07:59 O2 Del Method Room Air 03/14/25 04:54 03/13/25 03/14/25 03/14/25 22:59 06:59 14:59 Intake Total 500 / 812.717 312.717 / 847.615 7982 / 1480 Output Total 850 / 850 1300 / 1300 Balance 500 / -37.283 -537.283 / -37.283 180 / 180 Weight last 48 hrs Weight 236 lb 14.4 oz Weight 230 lb Physical Exam 2 Const: COMMON NORMALS: no acute distress and patient oriented x3 Chest: COMMONS NORMALS: normal inspection of the chest and normal palpation of entire chest wall CHEST: Yes Symmetrical chest wall rise Resp: COMMON NORMALS: normal respiratory effort, No retractions, No use of accessory muscles and clear to auscultation bilaterally EFFORT & INSPECTION: Yes symmetric chest movement AUSCULTATION: clear to auscultation bilaterally Cardio: COMMON NORMALS: S1 normal heart sound present, S2 normal heart sound present, No gallops present (Cardio), No clicks present (Cardio), No murmurs present (Cardio) and No rub (Cardio) RHYTHM: abnormal rhythm irregularly irregular HEART SOUNDS: S1 normal heart sound present and S2 normal heart sound present PERIPHERAL PULSES: radial pulses present, posterior tibial pulses present and dorsalis pedis present Neuro: COMMON NORMALS: patient oriented x3 and moves all extremities Psych: COMMON NORMALS: mental status grossly normal and cooperative Data 03/14/25 03:40 03/14/25 03:40 A&P Assessment and plan 1. Thoracic aortic aneurysm (TAA): 2. Hypertension: 3. Atrial fibrillation: 4. Chronic kidney disease (CKD): Plan: He does not seem to have been in atrial fibrillation for long, he monitors his heart rate and blood pressures closely. Due to the dizziness symptom, he doesn't seem to tolerate atrial fibrillation well, and since it is a new onset would be worthwhile to attempt cardioversion. This has been discussed with him and he would like to try to restore sinus rhythm. Will plan for LUISITO guided cardioversion tomorrow at noon. NPO after midnight tonight. Continue heparin infusion. PDMP PDMP Reviewed: Not Reviewed Coding Level of Care Code Acute Code for [facility] Diagnoses Thoracic aortic aneurysm (TAA) I71.20 Hypertension I10 Atrial fibrillation I48.91 Chronic kidney disease (CKD) N18.9
--- NOTE | 2025-03-14 11:43 | CT_ITS ---
WS: [id number] CT HEAD TECHNIQUE: Noncontrast CT of the head obtained from the skullbase to the vertex. CLINICAL INFORMATION: dizzyness COMPARISON: None. DLP: 1200.[address] scans at [facility] use at least one of these dose optimization techniques: automated exposure control; mA and/or kV adjustment per patient size (includes targeted exams where dose is matched to clinical indication); or iterative reconstruction. FINDINGS: No evidence of intracranial hemorrhage or mass effect. Ventricular system and basal cisterns are patent. Mild small vessel changes with moderate parenchymal volume loss. No extra-axial fluid collections. No evidence of mass or mass effect. Vascular calcification. Large retention cyst or polyp RIGHT maxillary sinus partially visualized. Mastoid air cells are well aerated. CT/CT head wo con* [id number] IMPRESSION: 1. No evidence of intracranial hemorrhage or mass effect. 2. No acute intracranial findings.
[2025-03-14 13:31] LABS: Partial Thromboplastin Time 84.8 SECONDS (23.9-36.7)
--- NOTE | 2025-03-14 13:35 | P.PN_ITS ---
Subjective 2 Subjective: Patient was seen this morning, denies any chest pain, he did report chest palpitations is what brought him to the hospital, but since then they have resolved, he does report dizziness, especially with ambulation, which was new, no facial droop, no slurring of his words, no focal weakness, no blurry vision, no seizure-like episodes Vitals/I&O/Wt Last Vital Signs Temp 97.8 F 03/14/25 12:00 Pulse 74 03/14/25 12:00 Resp 17 03/14/25 12:00 BP 141/84 03/14/25 12:00 Pulse Ox 96 03/14/25 12:00 O2 Del Method Room Air 03/14/25 04:54 03/13/25 03/14/25 03/14/25 22:59 06:59 14:59 Intake Total 500 / 500 312.717 / 762.476 2064 / 1480 Output Total 850 / 850 1550 / 1550 Balance 500 / 500 -537.283 / -37.283 -70 / -70 Weight last 48 hrs Weight 107.456 kg Weight 104.326 kg Physical Exam 2 Const: COMMON NORMALS: no acute distress and patient oriented x3 Eye: COMMON NORMALS: Equal, round and reactive pupils present and EOMs intact bilaterally PUPIL: Yes Equal, round and reactive pupils present Resp: COMMON NORMALS: normal respiratory effort, No retractions, No use of accessory muscles and clear to auscultation bilaterally AUSCULTATION: clear to auscultation bilaterally Cardio: COMMON NORMALS: regular rate, S1 normal heart sound present and S2 normal heart sound present RATE: regular rate RHYTHM: abnormal rhythm H EART SOUNDS: S1 normal heart sound present and S2 normal heart sound present GI: COMMON NORMALS: Normal to inspection, nondistended, normoactive bowel sounds present and non-tender Extremity: COMMON NORMALS: no pedal edema Neuro: COMMON NORMALS: patient oriented x3, CN's II-XII intact bilaterally, moves all extremities and no focal motor deficits Psych: COMMON NORMALS: mental status grossly normal Data 03/14/25 03:40 03/14/25 03:40 A&P Assessment and plan 1. Dehydration: 2. Atrial fibrillation: 3. Progressive pulmonary hypertension: 4. Dizzy spells: Plan: #1 Dehydration has resolved, stop IV fluids #2 Atrial fibrillation -Beta-mir currently on hold due to bradycardia -Currently on heparin drip -Cardiac echo - Cardiology consulted #3 Pulmonary hypertension #4 Dizziness -Check orthostatic vitals -CT head without contrast #5 Full code Heparin drip for DVT prophylaxis Protonix for GI prophylaxis Type 2 diabetes mellitus, insulin sliding scale PDMP PDMP Reviewed: Not Reviewed Attestations 2 Medical Necessity Statement*: Patient requires hospitalization for dizziness, atrial fibrillation Diagnoses Dehydration E86.0 Atrial fibrillation I48.91 Progressive pulmonary hypertension I27.20 Dizzy spells R42
[2025-03-14] MEDS: heparin drip 25,000 UNIT/500 ML PREMIX 23 UNIT IV (19:07)
[2025-03-14 20:25] LABS: Partial Thromboplastin Time 71.6 SECONDS (23.9-36.7)
[2025-03-15] VITALS (7 sets, daily range): BP systolic 129–164; BP diastolic 80–97; PULSE 59–103; RESP 15–28; TEMP 36.1–36.8; O2SAT 94–97
[2025-03-15 02:31] LABS: Hematocrit 46.1 % (37-53); Hemoglobin 15.30 g/dL (11.27-16.99); Mean Corpuscular HGB Conc 33.2 g/dL (30-55); Mean Corpuscular Hemoglobin 29.7 pg (27-33); Mean Corpuscular Volume 89.5 fl (82-101); Nucleated Red Blood Cells % 0 %; Platelet Count 187 10^3/cmm (157-399); Red Blood Count 5.15 10^6/uL (3.85-5.65); White Blood Count 9.30 10^3/uL (3.29-11.43)
[2025-03-15 02:51] LABS: Partial Thromboplastin Time 89.7 SECONDS (23.9-36.7)
[2025-03-15 02:52] LABS: Anion Gap 14.6 (5-19); Blood Urea Nitrogen 17 mg/dL (8-23); Calcium 9.1 mg/dL (8.5-10.5); Carbon Dioxide 27 mmol/L (22-29); Chloride 103 mmol/L (98-107); Creatinine Clr Calc Pharmacy 75.9346; Glucose 114 mg/dL (65-115); Osmolality Calculated 294 mOsm/kg (285-295); Potassium 3.6 mmol/L (3.5-5.1); Sodium 141 mmol/L (136-145)
[2025-03-15] MEDS: ondansetron 2 mg/ML SDV 2 mL 4 MG IVP (08:29)
--- NOTE | 2025-03-15 09:22 | PC.SOCIAL ---
IMM Update pg 2 of IMM Updated and reviewed w/ patient. Copy provided and copy dated, initialed and placed in chart.
[2025-03-15 09:37] LABS: Partial Thromboplastin Time 70.6 SECONDS (23.9-36.7)
--- NOTE | 2025-03-15 10:09 | P.PN_ITS ---
<Statement entered by Rod Sequeira M.D - 03/16/25 12:01> Patient was cared for in conjunction with an advanced practice practitioner.? I reviewed the chart and all pertinent data including imaging, telemetry, and laboratory results.? I discussed the patient in detail with the advanced practice practitioner.? Please see their note for complete progress note, testing results and agreed upon plan of care for the patient. Subjective 2 Subjective: No events noted overnight. He is still feeling fatigued and dizzy, in atrial fibrillation with no RVR. LUISITO guided cardioversion planned for noon today. He appears euvolemic, blood pressure controlled currently. Update: Due to unexpected unavailability of anesthesia providers, LUISITO guided cardioversion is postponed until tomorrow. N.p.o. after midnight tonight. Vitals/I&O/Wt Last Vital Signs Temp 96.9 F L 03/15/25 08:00 Pulse 75 03/15/25 08:00 Resp 20 H 03/15/25 08:00 BP 129/84 03/15/25 08:00 Pulse Ox 95 03/15/25 08:00 O2 Del Method Room Air 03/15/25 08:00 03/14/25 03/15/25 03/15/25 22:59 06:59 14:59 Intake Total 652.516 / 2446.683 143.75 / 2446.683 Output Total 1700 / 3900 650 / 3900 250 / 250 Balance -1047.484 / -1453.317 -506.25 / -1453.317 -250 / -250 Weight last 48 hrs Weight 229 lb 11.2 oz Weight 236 lb 14.4 oz Weight 230 lb Physical Exam 2 Const: COMMON NORMALS: no acute distress and patient oriented x3 Chest: COMMONS NORMALS: normal inspection of the chest and normal palpation of entire chest wall CHEST: Yes Symmetrical chest wall rise Resp: COMMON NORMALS: normal respiratory effort, No retractions, No use of accessory muscles and clear to auscultation bilaterally EFFORT & INSPECTION: Yes symmetric chest movement AUSCULTATION: clear to auscultation bilaterally Cardio: COMMON NORMALS: S1 normal heart sound present, S2 normal heart sound present, No gallops present (Cardio), No clicks present (Cardio), No murmurs present (Cardio) and No rub (Cardio) RHYTHM: abnormal rhythm irregularly irregular HEART SOUNDS: S1 normal heart sound present and S2 normal heart sound present PERIPHERAL PULSES: radial pulses present, posterior tibial pulses present and dorsalis pedis present Neuro: COMMON NORMALS: patient oriented x3 and moves all extremities Psych: COMMON NORMALS: mental status grossly normal and cooperative Data 03/15/25 02:08 03/15/25 02:08 A&P Assessment and plan 1. Atrial fibrillation: 2. OVERTON (dyspnea on exertion): 3. Thoracic aortic aneurysm (TAA): 4. Hypertension: 5. Hyperlipidemia: 6. Chronic kidney disease (CKD): Plan: Will plan for stress test tomorrow after cardioversion today. LVEF 60% on echocardiogram. Continue heparin for now. PDMP PDMP Reviewed: Not Reviewed Attestations 2 Medical Necessity Statement*: ischemic workup Coding Level of Care Code Acute Code for [facility] Diagnoses Atrial fibrillation I48.91 OVERTON (dyspnea on exertion) R06.09 Thoracic aortic aneurysm (TAA) I71.20 Hypertension I10 Hyperlipidemia E78.5 Chronic kidney disease (CKD) N18.9
--- NOTE | 2025-03-15 14:05 | P.PN_ITS ---
Subjective 2 Subjective: Patient was seen this morning, currently alert oriented x 3, following all commands, no chest pain, no palpitations, no shortness of breath Vitals/I&O/Wt Last Vital Signs Temp 96.9 F L 03/15/25 08:00 Pulse 75 03/15/25 08:00 Resp 20 H 03/15/25 08:00 BP 129/84 03/15/25 08:00 Pulse Ox 95 03/15/25 08:00 O2 Del Method Room Air 03/15/25 08:00 03/14/25 03/15/25 03/15/25 22:59 06:59 14:59 Intake Total 652.516 / 2302.933 143.75 / 2446.683 240 / 240 Output Total 1700 / 3250 650 / 3900 250 / 250 Balance -1047.484 / -947.067 -506.25 / -1453.317 -10 / -10 Weight last 48 hrs Weight 104.19 kg Weight 107.456 kg Physical Exam 2 Const: COMMON NORMALS: no acute distress and patient oriented x3 Resp: COMMON NORMALS: normal respiratory effort, No retractions, No use of accessory muscles and clear to auscultation bilaterally AUSCULTATION: clear to auscultation bilaterally Cardio: COMMON NORMALS: regular rate, regular rhythm, S1 normal heart sound present and S2 normal heart sound present RATE: regular rate RHYTHM: r egular rhythm HEART SOUNDS: S1 normal heart sound present and S2 normal heart sound present GI: COMMON NORMALS: Normal to inspection, nondistended, normoactive bowel sounds present and non-tender Extremity: COMMON NORMALS: no pedal edema Neuro: COMMON NORMALS: patient oriented x3 Psych: COMMON NORMALS: mental status grossly normal Data 03/15/25 02:08 03/15/25 02:08 A&P Assessment and plan 1. Dehydration: 2. Atrial fibrillation: 3. Progressive pulmonary hypertension: 4. Dizzy spells: Plan: #1 Dehydration has resolved, stopped IV fluids #2 Atrial fibrillation -Beta-mir currently on hold due to bradycardia -Currently on heparin drip -Cardiac echo - Cardiology consulted - Plan on n.p.o. midnight, cardioversion with LUISITO tomorrow #3 Pulmonary hypertension #4 Dizziness -Check orthostatic vitals -CT head without contrast no acute findings #5 Full code Heparin drip for DVT prophylaxis Protonix for GI prophylaxis Type 2 diabetes mellitus, insulin sliding scale PDMP PDMP Reviewed: Not Reviewed Attestations 2 Medical Necessity Statement*: Patient requires hospitalization for atrial fibrillation Diagnoses Dehydration E86.0 Atrial fibrillation I48.91 Progressive pulmonary hypertension I27.20 Dizzy spells R42
[2025-03-15 16:12] LABS: Partial Thromboplastin Time 53.8 SECONDS (23.9-36.7)
[2025-03-15] MEDS: heparin drip 25,000 UNIT/500 ML PREMIX 17 UNIT IV (20:17)
[2025-03-15 21:46] LABS: Partial Thromboplastin Time 51.4 SECONDS (23.9-36.7)
--- NOTE | 2025-03-15 22:17 | PC.NURSE ---
Nurse is allowing to use dexcom.
[2025-03-16] VITALS: BP 141/76; PULSE 71; RESP 18; TEMP 36.9; O2SAT 94
[2025-03-16 04:00] VITALS: BP 149/82; PULSE 59; RESP 15; TEMP 36.5; O2SAT 98
[2025-03-16 05:02] LABS: Hematocrit 45.1 % (37-53); Hemoglobin 14.90 g/dL (11.27-16.99); Mean Corpuscular HGB Conc 33.0 g/dL (30-55); Mean Corpuscular Hemoglobin 28.7 pg (27-33); Mean Corpuscular Volume 86.9 fl (82-101); Nucleated Red Blood Cells % 0 %; Platelet Count 174 10^3/cmm (157-399); Red Blood Count 5.19 10^6/uL (3.85-5.65); White Blood Count 8.88 10^3/uL (3.29-11.43)
[2025-03-16 05:19] LABS: Anion Gap 14.6 (5-19); Blood Urea Nitrogen 24 mg/dL (8-23); Calcium 9.1 mg/dL (8.5-10.5); Carbon Dioxide 27 mmol/L (22-29); Chloride 105 mmol/L (98-107); Creatinine Clr Calc Pharmacy 67.6604; Glucose 135 mg/dL (65-115); Osmolality Calculated 302 mOsm/kg (285-295); Potassium 3.6 mmol/L (3.5-5.1); Sodium 143 mmol/L (136-145)
[2025-03-16 05:21] LABS: Partial Thromboplastin Time 73.0 SECONDS (23.9-36.7)
[2025-03-16 05:37] VITALS: PULSE 66
[2025-03-16 07:55] VITALS: BP 154/101; PULSE 67; RESP 16; TEMP 36.8; O2SAT 96
--- NOTE | 2025-03-16 08:02 | W.PM.OPSUD ---
Surgery/Procedure H&P Update DATE OF PROCEDURE: March 16, 2025 DATE H&P PERFORMED: 03/14/25 H&P UPDATE INFORMATION: I have reviewed H&P completed within last 30 days, I have examined patient prior to procedure and No changes to prior documentation PREOP DIAGNOSIS: Atrial fibrillation PRIMARY INDICATION FOR PROCEDURE: Atrial fibrillation PLANNED PROCEDURE: Transesophageal echocardiogram with cardioversion Anesthesia team available for procedure PATIENT REASSESSED PRIOR TO SEDATION, WITH NO CHANGE NOTED: Yes PHYSICAL EXAM: alert, oriented x 3, clear to auscultation bilaterally and regular rate & rhythm
--- NOTE | 2025-03-16 08:57 | PC.NURSE ---
0856 start time for LUISITO, anesthesia, ultrasound, and Dr Sequeira all in room. Shock at 0902 with 200 joule. Patient shocked back in to sinus rhythm.
--- NOTE | 2025-03-16 09:08 | PM.PROC ---
Procedure Note: Date of procedure: 03/16/25 Pre-procedure diagnosis: LUISITO/ Cardioversion Post-procedure diagnosis: other (Successful cardioversion to sinus rhyhtm) Procedure: Of anesthesia team stated patient, we proceeded with advancing LUISITO probe. Limited images were obtained to rule out left atrial appendage thrombus. There was no evidence of left atrial appendage thrombus. We proceeded with DCCV cardioversion at 200 J and shock x 1 was delivered. Patient cardioverted successfully to normal sinus rhythm. Performing Provider: Rod Sequeira Complications: None Condition: stable Disposition: no change Coding Level of Care Code Acute Code for [facility]
--- NOTE | 2025-03-16 09:10 | P.PN_ITS ---
<Statement entered by Rod Sequeira M.D - 03/18/25 21:31> Patient was cared for in conjunction with an advanced practice practitioner. I reviewed the chart and all pertinent data including imaging, telemetry, and laboratory results. I discussed the patient in detail with the advanced practice practitioner. Please see their note for agreed upon plan of care and results for the patient. Subjective 2 Subjective: Cardioverted successfully this morning, maintaining sinus rhythm. Will stop heparin and start him on Eliquis 5 mg twice daily first dose now, metoprolol tartrate 25 mg twice a day. Vitals/I&O/Wt Last Vital Signs Temp 98.4 F 03/16/25 11:48 Pulse 73 03/16/25 11:48 Resp 22 H 03/16/25 11:48 BP 169/95 03/16/25 11:48 Pulse Ox 95 03/16/25 11:48 O2 Del Method Room Air 03/16/25 11:48 03/15/25 03/16/25 03/16/25 22:59 06:59 14:59 Intake Total 723.383 / 1090.366 126.983 / 1090.366 120 / 120 Output Total 200 / 800 350 / 800 Balance 523.383 / 290.366 -223.017 / 290.366 120 / 120 Weight last 48 hrs Weight 227 lb 6.4 oz Weight 229 lb 11.2 oz Physical Exam 2 Const: COMMON NORMALS: no acute distress and patient oriented x3 GENERAL APPEARANCE: cooperative and comfortable ORIENTATION/CONSCIOUSNESS: Yes awake, Yes oriented to person, Yes oriented to place and Yes oriented to time Chest: COMMONS NORMALS: normal inspection of the chest and normal palpation of entire chest wall CHEST: Yes Symmetrical chest wall rise Resp: COMMON NORMALS: normal respiratory effort, No retractions, No use of accessory muscles and clear to auscultation bilaterally EFFORT & INSPECTION: Yes symmetric chest movement AUSCULTATION: clear to auscultation bilaterally Cardio: COMMON NORMALS: regular rate, regular rhythm, S1 normal heart sound present, S2 normal heart sound present, No gallops present (Cardio), No clicks present (Cardio), No murmurs present (Cardio) and No rub (Cardio) RATE: r egular rate RHYTHM: regular rhythm HEART SOUNDS: S1 normal heart sound present and S2 normal heart sound present PERIPHERAL PULSES: radial pulses present Extremity: COMMON NORMALS: no pedal edema Neuro: COMMON NORMALS: patient oriented x3 and moves all extremities S ENSORIUM/ORIENTATION: Yes oriented to person, Yes oriented to place and Yes oriented to time Data 03/16/25 04:48 03/16/25 04:48 A&P Assessment and plan 1. Atrial fibrillation: 2. Tobacco dependence due to cigarettes, in remission: 3. Thoracic aortic aneurysm (TAA): 4. Hypertension: 5. Hyperlipidemia: Plan: He is feeling much better in normal sinus rhythm, dizziness is resolved. Will have him follow-up in the cardiology clinic with Dr. Sequeira in 2 weeks. PDMP PDMP Reviewed: Not Reviewed Attestations 2 Medical Necessity Statement*: Planned discharge Coding Level of Care Code Acute Code for [facility] Diagnoses Atrial fibrillation I48.91 Tobacco dependence due to cigarettes, in remission F17.211 Thoracic aortic aneurysm (TAA) I71.20 Hypertension I10 Hyperlipidemia E78.5
--- NOTE | 2025-03-16 09:17 | ANES.PREANE2 ---
Pre-Anesthetic Assessment Height/Weight: Height 1.78 m Weight 103.147 kg Temp Pulse Resp BP Pulse Ox O2 Del Method 98.3 F 67 16 154/101 96 Room Air 03/16/25 07:55 03/16/25 07:55 03/16/25 07:55 03/16/25 07:55 03/16/25 07:55 03/16/25 07:55 Preop Diagnosis: Atrial fibrillation Social No alcohol and No tobacco Exam alert, oriented x 3 and clear to auscultation bilaterally Irregular rate/rythm Airway Submandibular: within normal limits Cervical ROM: within normal limits Mallampati: Class II Pulmonary Chronic Obstructive Pulmonary Disease CV/HEM Atrial Fibrillation, Congestive Heart Failure, Hypertension and Murmur Thoracic Aortic anuerism Metabolic Diabetes Mellitus and Hyperlipidemia Anesthetic Plan ASA status: 4 Anesthesia: MAC Medications/Allergies Home Medications ?Medication ?Instructions ?Recorded ?Confirmed ?Last Taken ?Type insulin aspart U-100 100 unit/mL 5 unit SUBCUT TID 09/26/19 03/13/25 09/20/24 History (3 mL) subcutaneous pen (Novolog FlexPen U-100 Insulin aspart) insulin glargine 100 unit/mL 100 unit SUBCUT DAILY 09/26/19 03/13/25 03/12/25 History subcutaneous solution (Lantus U-100 Insulin) isosorbide mononitrate 60 mg 60 mg PO DAILY@1800 09/26/19 03/13/25 03/12/25 18:00 History tablet,extended release 24 hr metoprolol succinate 50 mg 25 mg PO DAILY@179904/23/21 03/13/25 03/12/25 18:00 History tablet,extended release 24 hr aspirin 325 mg tablet 325 mg PO DAILY@1800 10/09/22 03/13/25 03/12/25 18:00 History nifedipine 90 mg tablet,extended 180 mg PO DAILY@179912/18/22 03/13/25 03/12/25 18:00 History release albuterol sulfate 90 mcg/actuation 2 puff inhalation Q6H PRN 08/10/23 03/13/25 Unknown History aerosol inhaler Shortness Of Breath losartan 25 mg tablet 25 mg PO DAILY@179903/13/25 03/13/25 03/12/25 18:00 History Allergies Allergy/AdvReac Type Severity Reaction Status Date / Time No Known Allergies Allergy Verified 03/13/25 13:31 Current Medications Generic Name Dose Route Start Last Admin Trade Name Freq PRN Reason Stop Dose Admin Aspirin 81 mg 03/15/25 09:00 03/15/25 08:36 Aspirin 81 Mg Ec Tablet PO Not Given DAILY JORGE ALBERTO Docusate Sodium 100 mg 03/14/25 09:00 03/15/25 18:25 Docusate Sodium 100 Mg Capsule PO Not Given BID [facility] Heparin Sodium/Sodium Chloride 25,000 unit in 500 mls @ 0 mls/hr 03/13/25 21:45 03/16/25 05:29 Heparin Drip IV 8.84 unit/kg/hr CONT JORGE ALBERTO 19 mls/hr Protocol Titration Per Protocol Insulin Human Lispro 0 unit 03/14/25 08:00 03/15/25 17:29 Insulin Lispro 100 Unit/1 Ml SUBCUT Not Given TIDWM [facility] Protocol Ondansetron HCl 4 mg 03/13/25 21:07 03/15/25 08:29 Ondansetron 2 Mg/Ml Sdv 2 Ml IVP 4 mg Q4H PRN Administration vomiting, or N/V if npo Pantoprazole Sodium 40 mg 03/14/25 09:00 03/15/25 08:[address] 40 Mg Tablet PO 40 mg DAILY JORGE ALBERTO Administration PFSH Anesthesia Medical History Chronic kidney disease (CKD) Accelerated hypertension Lung nodule Melanoma Chest tightness Aortic valve stenosis [place] coronary artery 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 Abnormal cardiovascular stress test Thoracic aortic aneurysm (TAA) Hypertension Hyperlipidemia Surgical History Hx of appendectomy History of shoulder surgery Family History Father CAD (coronary artery disease) Family/Other Cancer Mother Dementia Grandmother Diabetes Other Family history of premature coronary artery disease Hyperlipidemia Hypertension Denies family history of Clotting disorder Chronic kidney disease (CKD) Suicide Anesthesia complication Bleeding disorder Lung disease Stroke Social History Smoking and tobacco/nicotine status: never used tobacco/nicotine Quit status (tobacco/nicotine): has quit using Year quit tobacco: 1999 - 2PPD x 30 Years Alcohol intake: never Substance/Drug Use: never Lives independently: Yes Household members: none Marital status: / Current occupational status: retired Do you think of yourself as: Straight/Heterosexual Current gender identity: Male Data Anesthesia 03/16/25 04:48 03/16/25 04:48 Short CBC 03/15/25 03/16/25 Range/Units 02:08 04:48 WBC 9.30 8.88 (3.29-11.43) 10^3/uL Hgb 15.30 14.90 (11.27-16.99) g/dL Hct 46.1 45.1 (37-53) % MCV 89.5 86.9 (82-101) fl Plt Count 187 174 (157-399) 10^3/cmm Neut % (Auto) 49.4 55.5 % Neut # (Auto) 4.59 4.93 (1.8-7.7) 10^3/uL BMP 03/15/25 03/16/25 02:08 04:48 Sodium 141 143 Potassium 3.6 3.6 Chloride 103 105 Carbon Dioxide 27 27 BUN 17 24 H Creatinine 1.0 1.1 Glucose 114 135 H Calcium 9.1 9.1 Coags 03/14/25 03/14/25 03/15/25 13:04 19:38 02:08 APTT 84.8 H 71.6 H 89.7 H 03/15/25 03/15/25 03/15/25 09:10 15:49 21:28 APTT 70.6 H 53.8 H 51.4 H 03/16/25 04:48 APTT 73.0 H Cardiac Studies: Echocardiogram 03/13/25 Echocardiogram Ultrasound 11/03/19 Sestamibi Stress Test (Cardiology) 10/21/19
--- NOTE | 2025-03-16 09:24 | PM.PACU ---
PACU note Narrative: s/p LUISITO with stable vitals and airway. No nausea. Exam: awake and somnolent, arousable Disposition: back to floor
--- NOTE | 2025-03-16 10:45 | USCV_ITS ---
Alexx Garcia Age: 79 Gender: M : 1945 Exam Date: 03/16/2025 09:06 Ordering Phys: Veronika Steiner Technologist: Exam Location: [facility] [place] Indication: card conversion BP: / HR: Rhythm: Sinus Technical Quality: MEASUREMENTS (Male / Female) Normal Values Medications Per anesthesia team Complications None Proc. Components After anethesia team sedated patient, we proceeded with advancing LUISITO probe. FINDINGS Left Ventricle Normal LV systolic function. Right Ventricle Grossly normal Right Atrium Not well visualized Left Atrium Appears to be dilated LA Appendage No left atrial appendage thrombus IA Septum Grossly normal Mitral Valve Structurally normal Aortic Valve Thickened aortic valve. Tricuspid Valve Grossly normal. Pulmonic Valve Not well visualized Pericardium Normal Aorta Not well visualized CONCLUSIONS LV systolic function is normal No left atrial appendage thrombus. Rod Sequeira MD (Electronically Signed) Final Date: 19 March 2025 22:24 S
[2025-03-16 11:12] LABS: Partial Thromboplastin Time 38.5 SECONDS (23.9-36.7)
--- NOTE | 2025-03-16 11:37 | PM.DCS ---
Discharge Providers Date of Admission: 03/13/25 18:59 Date of Discharge: March 16, 2025 Attending Provider at Admission: Jackie Pugh MD Attending Provider at Discharge: Alex Brennan MD Primary Care Provider: Anitha Jacob DO Diagnoses at Discharge Discharge Diagnosis 1. Dehydration: 2. Atrial fibrillation: 3. Progressive pulmonary hypertension: 4. Dizzy spells: Reason for Visit Reason for Visit: chest pain A fib Hospital Course Hospital Course This is a 79-year-old man with past medical history of atrial fibrillation, who presents [facility] for chest palpitations Patient presents [facility] for atrial fibrillation, cardiology was consulted, managed on a heparin drip, patient underwent successful cardioversion 03/16/2025, will be discharged on metoprolol 25 twice daily, with Eliquis therapy with close follow-up with cardiology as outpatient Patient will follow-up with cardiology as outpatient for consideration of stress testing Physical Exam Const: COMMON NORMALS: no acute distress and patient oriented x3 Resp: COMMON NORMALS: normal respiratory effort, No retractions, No use of accessory muscles and clear to auscultation bilaterally AUSCULTATION: clear to auscultation bilaterally Cardio: COMMON NORMALS: regular rate, regular rhythm, S1 normal heart sound present and S2 normal heart sound present RATE: regular rate RHYTHM: regular rhythm HEART SOUNDS: S1 normal heart sound present and S2 normal heart sound present GI: COMMON NORMALS: Normal to inspection, nondistended, normoactive bowel sounds present and non-tender Extremity: COMMON NORMALS: no pedal edema Neuro: COMMON NORMALS: patient oriented x3, CN's II-XII intact bilaterally and moves all extremities Psych: COMMON NORMALS: mental status grossly normal Discharge Data Studies Completed and Pending Completed Studies During Hospitalization Category Date Time Status CT head wo con* [id number] Routine Cat Scan 03/14/25 11:43 Completed XR chest 1V portable [id number] Stat Exams 03/13/25 13:23 Completed CV. echo complete* [id number] Routine Ultrasound 03/13/25 21:47 Completed Pending at discharge Category Date Time Status Basic Metabolic Panel AM LABS Lab 03/17/25 04:00 Ordered Complete Blood Count w/Auto AM LABS Lab 03/17/25 04:00 [place] [id number] Routine Ultrasound 03/16/25 10:45 Taken Radiology Impressions Chest X-Ray 03/13/25 13:23 Impression: Atherosclerosis. Head CT 03/14/25 11:43 IMPRESSION: 1. No evidence of intracranial hemorrhage or mass effect. 2. No acute intracranial findings. Laboratory Results WBC 8.88 10^3/uL (3.29-11.43) 03/16/25 04:48 RBC 5.19 10^6/uL (3.85-5.65) 03/16/25 04:48 Hgb 14.90 g/dL (11.27-16.99) 03/16/25 04:48 Hct 45.1 % (37-53) 03/16/25 04:48 MCV 86.9 fl (82-101) 03/16/25 04:48 MCH 28.7 pg (27-33) 03/16/25 04:48 MCHC 33.0 g/dL (30-55) 03/16/25 04:48 RDW 13.2 % (12.1-15.1) 03/16/25 04:48 Plt Count 174 10^3/cmm (157-399) 03/16/25 04:48 MPV 10.4 fL (7.4-10.4) 03/16/25 04:48 Neut % (Auto) 55.5 % 03/16/25 04:48 Lymph % (Auto) 33.9 % 03/16/25 04:48 Chambers % (Auto) 8.3 % 03/16/25 04:48 Eos % (Auto) 1.7 % 03/16/25 04:48 Baso % (Auto) 0.5 % 03/16/25 04:48 Neut # (Auto) 4.93 10^3/uL (1.8-7.7) 03/16/25 04:48 Lymph # (Auto) 3.0 10^3/uL (0.8-4.8) 03/16/25 04:48 Chambers # (Auto) 0.7 10^3/uL (0.2-0.9) 03/16/25 04:48 Eos # (Auto) 0.2 10^3/uL (0.0-0.8) 03/16/25 04:48 Baso # (Auto) 0.0 10^3/uL (0.0-0.1) 03/16/25 04:48 Nucleated RBC % (auto) 0 % 03/16/25 04:48 Nucleated RBCs # 0.0 /100WBC 03/16/25 04:48 APTT 38.5 SECONDS (23.9-36.7) H 03/16/25 10:49 Sodium 143 mmol/L (136-145) 03/16/25 04:48 Potassium 3.6 mmol/L (3.5-5.1) 03/16/25 04:48 Chloride 105 mmol/L (98-107) 03/16/25 04:48 Carbon Dioxide 27 mmol/L (22-29) 03/16/25 04:48 Anion Gap 14.6 (5-19) 03/16/25 04:48 BUN 24 mg/dL (8-23) H 03/16/25 04:48 Creatinine 1.1 mg/dL (0.7-1.2) 03/16/25 04:48 GFR Calculation Not Reportable 03/16/25 04:48 Glucose 135 mg/dL (65-115) H 03/16/25 04:48 POC Glucose 102 mg/dL (70-110) 03/14/25 16:52 Calculated Osmolality 302 mOsm/kg (285-295) H 03/16/25 04:48 Calcium 9.1 mg/dL (8.5-10.5) 03/16/25 04:48 Phosphorus 2.7 mg/dL (2.5-4.5) 03/14/25 03:40 Magnesium 2.1 mg/dL (1.7-2.3) 03/14/25 03:40 Total Bilirubin 0.6 mg/dL (0.15-1.2) 03/14/25 03:40 AST 14 U/L (0-40) 03/14/25 03:40 ALT 16 U/L (0-41) 03/14/25 03:40 Alkaline Phosphatase 62 U/L (40-130) 03/14/25 03:40 Troponin T Baseline 24 ng/L (0-15) H 03/13/25 13:48 Troponin T 120 Minute 21.44 ng/L (0-15) H 03/13/25 15:48 Delta Troponin T -2.56 ABS# (0-10) L 03/13/25 15:48 Troponin T Hi Sens 6Hr 18.12 ng/L (0-15) H 03/13/25 19:37 Troponin T Hi Sens 6Hr Delta -5.88 ng/L (0-12) L 03/13/25 19:37 NT-Pro-B Natriuret Pep 4284 pg/mL (0-450) H 03/13/25 13:48 Total Protein 6.5 g/dL (6.6-8.7) L 03/14/25 03:40 Albumin 3.9 g/dL (3.5-5.2) 03/14/25 03:40 Globulin 2.6 g/dL (1.3-4.6) 03/14/25 03:40 TSH 3.13 uIU/mL (0.27-4.20) 03/13/25 13:48 Urine Color Dark yellow (Yellow) A 03/13/25 18:12 Urine Appearance Clear (CLEAR) 03/13/25 18:12 Urine pH 5.0 (5-7) 03/13/25 18:12 Ur Specific [place] 1.030 (1.005-1.030) 03/13/25 18:12 Urine Protein 1+ (Negative) A 03/13/25 18:12 Urine Glucose (UA) Negative (Normal) 03/13/25 18:12 Urine Ketones Trace (Negative) 03/13/25 18:12 Urine Blood Negative (Negative) 03/13/25 18:12 Urine Nitrate Negative (Negative) 03/13/25 18:12 Urine Bilirubin 1+ (Negative) H 03/13/25 18:12 Urine Urobilinogen 1.0 mg/dL (Negative) 03/13/25 18:12 Ur Leukocyte Esterase Trace (Negative) A 03/13/25 18:12 Urine RBC 0-2 /hpf (0-2) 03/13/25 18:12 Urine WBC 6-10 /hpf (0-5) 03/13/25 18:12 Ur Squamous Epith Cells 0-5 /hpf (0-5) 03/13/25 18:12 Amorphous Sediment Not Reportable 03/13/25 18:12 Urine Bacteria None seen /hpf (NONE) 03/13/25 18:12 Hyaline Casts 33.93 /lpf 03/13/25 18:12 Fine Granular Casts 0-4 /lpf H 03/13/25 18:12 Urine Mucus 2+ /hpf 03/13/25 18:12 Vitals Last Vital Signs Temp 98.3 F 03/16/25 07:55 Pulse 67 03/16/25 07:55 Resp 16 03/16/25 07:55 BP 154/101 03/16/25 07:55 Pulse Ox 96 03/16/25 07:55 O2 Del Method Room Air 03/16/25 07:55 Discharge Plan Discharge Patient Disposition: Home Condition: Stable Prescriptions: New aspirin 81 mg Tablet,Delayed Release (Dr/Ec) 81 mg PO DAILY 30 Days Qty: 30 0RF metoprolol tartrate 25 mg Tablet 25 mg PO BID@00,2099 30 Days Qty: 60 0RF Eliquis 5 mg Tablet 5 mg PO BID@00,2099 30 Days Qty: 30 0RF Continued insulin aspart U-100 [Novolog FlexPen U-100 Insulin] 100 unit/mL (3 mL) insulin pen 5 unit SUBCUT TID Rx Instructions: sliding scale isosorbide mononitrate 60 mg tablet extended release 24 hr 60 mg PO DAILY@1800 albuterol sulfate 90 mcg/actuation HFA aerosol inhaler 2 puff inhalation Q6H PRN (Reason: Shortness Of Breath) losartan 25 mg tablet 25 mg PO DAILY@1800 Changed Lantus U-100 Insulin 100 unit/mL solution 10 unit SUBCUT DAILY 30 Days Qty: 10 0RF Discontinued metoprolol succinate 50 mg tablet extended release 24 hr 25 mg PO DAILY@1800 nifedipine 90 mg tablet extended release 180 mg PO DAILY@1800 aspirin 325 mg tablet 325 mg PO DAILY@1800 [employer] House Attendant [place] for DC: Cardiology Referrals: Veronika Steiner FNP [Nurse Practitioner, Cardiology] - 4-7 days Anitha Jacob DO [Primary Care Provider, Family Practice] - 03/17/25 11:00 am Discharge Diet: Cardiac Discharge Activity: Resume usual activity Patient Instructions: Opioid Safety, Patient Portal & Ana Paula Instructions Activity Restrictions/Additional Instructions: - If you have any chest palpitations go to the emergency room - Please have your primary care provider watch her hemoglobin - If you develop bloody or black stools or have a significant fall or head trauma call 911 Discharge Attestations Time Spent in Discharge Care*: greater than 30 min Quality Metrics Clinical Quality Measures [ No reported AMI, CVA or VTE this stay] Coding Level of Care Code 75022 Total time (in minutes) for Discharge: 45 Diagnoses Dehydration E86.0 Atrial fibrillation I48.91 Progressive pulmonary hypertension I27.20 Dizzy spells R42
[2025-03-16 11:48] VITALS: BP 169/95; PULSE 73; RESP 22; TEMP 36.9; O2SAT 95
[2025-03-16 17:05] VITALS: BP 169/95; PULSE 79; RESP 22; TEMP 36.9; O2SAT 94
== END 2025-03-16 11:53 | disposition home or self-care (01) | DRG 309 ==
LOC: ER 17:38 → ER IP 18:59 → CSU 20:34
PROVIDERS: Family Medicine; Admitting Provider Internal Medicine; Emergency Provider Emergency Medicine; PCP Family Medicine; Visit Provider Family Medicine
DX: I48.91 Unspecified atrial fibrillation (principal); I13.0 Hypertensive heart and chronic kidney disease with heart failure and stage 1 through stage 4 chronic kidney disease, or unspecified chronic kidney disease; N17.9 Acute kidney failure, unspecified; I50.32 Chronic diastolic (congestive) heart failure; E86.0 Dehydration; I27.20 Pulmonary hypertension, unspecified; N18.9 Chronic kidney disease, unspecified; E11.22 Type 2 diabetes mellitus with diabetic chronic kidney disease; E78.5 Hyperlipidemia, unspecified; Z87.891 Personal history of nicotine dependence; I70.90 Unspecified atherosclerosis; Z79.82 Long term (current) use of aspirin; Z90.49 Acquired absence of other specified parts of digestive tract; Z83.3 Family history of diabetes mellitus; Z80.9 Family history of malignant neoplasm, unspecified; Z82.49 Family history of ischemic heart disease and other diseases of the circulatory system; Z83.438 Family history of other disorder of lipoprotein metabolism and other lipidemia; Z81.8 Family history of other mental and behavioral disorders; Z79.4 Long term (current) use of insulin; I71.20 Thoracic aortic aneurysm, without rupture, unspecified; J44.9 Chronic obstructive pulmonary disease, unspecified; R01.1 Cardiac murmur, unspecified; R00.1 Bradycardia, unspecified
CPT/HCPCS: 36415; 36416; 70450; 71045; 80048; 80053; 81001; 82962; 83735; 83880; 84100; 84443; 84484; 85025; 85730; 93005; 93306; 93312; 93320; 93325; 99285; J1644; J2405; J2704; J7030; J7040; J9999

== ENCOUNTER 2025-03-22 14:22 | Outpatient (CLI) | payer MEDICARE, SELFPAY | END 2025-03-22 14:23 | disposition home or self-care (01) | LOC: RAD 14:24 | PROVIDERS: PCP Family Medicine; Visit Provider Family Medicine | DX: I48.91 Unspecified atrial fibrillation (principal); R07.89 Other chest pain; Z79.01 Long term (current) use of anticoagulants; I12.9 Hypertensive chronic kidney disease with stage 1 through stage 4 chronic kidney disease, or unspecified chronic kidney disease; N18.9 Chronic kidney disease, unspecified; Z87.891 Personal history of nicotine dependence | CPT/HCPCS: 99214 ==

== ENCOUNTER 2025-04-03 10:28 | Outpatient (CLI) | payer MEDICARE, SELFPAY ==
--- NOTE | 2025-04-03 | ECG_ITS ---
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 Interpretive Statements Lung unchanged pre/post procedure; Intraprocedure shortess of breath; Symptoms resoled by discharge PROCEDURE: At the baseline, the EKG revealed sinus bradycardia with a heavy baseline artifact. The baseline heart was 55 bpm with a blood pressue of 120/73 mm of Hg Lexiscan was infused over a period of 20 seconds. A total of 0.4 milligrams of Lexiscan was infused. The stress phase was continued for a total of 5 minutes. Heart rate at the end of the stress phase was 60 bpm with a blood pressure 108/67 mm of Hg. The EKG at the peak infusion revealed no significant changes. Sestamibi was injected 20 seconds after the Lexiscan infusion. Heart rate at the end of the recovery phase was 58 bpm with a blood pressure of 102/64 mm of Hg. CONCLUSION: 1. No significant EKG changes with the LexiScan infusion 2. No LexiScan induced chest pain or cardiac arrhythmia 3. Normal blood pressure and heart rate response 4. Sestamibi/sestamibi perfusion scan pending; see separate report. Electronically Signed On 04-04-2025 22:52:57 CDT by Erick Sanchez M.D. [email or web address]
[2025-04-03 11:01] VITALS: BMI 33.7
--- NOTE | 2025-04-03 11:01 | NMCV_ITS ---
NM anabel perf SPECT r/s* [id number] Mattmichele Alexx Age: 79 Gender: M : 1945 Exam Date: 04/03/2025 11:05 Ordering Phys: Rod Sequeira M.D ([email or web address]) Technologist: SUZE Allen Exam Location: [facility] Indications: cp STRESS TEST Please see separate stress test report in [facility] for full findings IMAGE PROTOCOL Rest/Stress 1 Lexiscan Day Radiopharmaceutical Dose (mCi) Administration Site Administered by Rest: Tc-99m 10.5 IV Melani Ludwig [employer] Sestamibi Stress:Tc-99m 32.9 IV Melani Jimenezgle, [employer] PROFESSOR Sestamibi Rest: 03-Apr-2025 60 Discovery 630 Stress: 03-Apr-2025 30 Discovery 630 0.4mg Lexiscan. Images obtained in supine and prone position. SPECT RESULTS Technical Quality: Good Raw Data Analysis: Normal Image Corrections: No attenuation or motion correction applied Summed Stress Score: 0 Summed Rest Score: 0 Summed Difference Score: 0 PERFUSION FINDINGS Uniform myocardial tracer uptake with no significant perfusion abnormality FUNCTIONAL RESULTS (calculated via Gated SPECT) Stress Image LV EF (%): 77 Stress EDV (mL):106 TID: 1.07 Stress ESV (mL):24 FUNCTIONAL FINDINGS: Segmental wall motion analysis revealing no gross wall motion abnormalities IMPRESSIONS 1. Myocardial perfusion imaging revealing fairly uniform tracer uptake. 2. Normal LV ejection fraction of 77%. 3. LV wall motion analysis revealing no gross wall motion abnormalities. 4. Normal LV volume Low probability for coronary ischemia, based on the above findings Compared to the study from 10/21/2019, there may not be a significant change Dr Erick Sanchez MD [facility] (Electronically Signed) Final Date: 04 April 2025 09:12 S
[2025-04-03 11:46] VITALS: BP 102/64; PULSE 56
== END 2025-04-03 10:29 | disposition home or self-care (01) ==
PROVIDERS: PCP Family Medicine; Visit Provider Internal Medicine
DX: I48.91 Unspecified atrial fibrillation (principal); R07.9 Chest pain, unspecified
CPT/HCPCS: 36415; 78452; 93017; A9500; J2785

== ENCOUNTER → 2025-04-25 14:28 | Outpatient (BNVA) | payer MEDICARE, SELFPAY | PROVIDERS: PCP Family Medicine; Visit Provider Internal Medicine | DX: R91.1 Solitary pulmonary nodule (principal); Z87.891 Personal history of nicotine dependence | CPT/HCPCS: 99203; Q3014 ==

== ENCOUNTER → 2025-06-19 11:02 | Outpatient (BNVA) | payer MEDICARE, SELFPAY | PROVIDERS: PCP Family Medicine; Visit Provider Internal Medicine Cardiovascular Disease | DX: I48.91 Unspecified atrial fibrillation (principal); Z79.01 Long term (current) use of anticoagulants | CPT/HCPCS: 99214 ==